=== PATIENT | male | born 1940 | race Caucasian/White ===

== ENCOUNTER 2016-12-10 19:34 | Inpatient (IN) | payer MEDICARE, OTHER ==
[~2016-12-10] VITALS: Ht 180.3 cm; Wt 81.2 kg
[2016-12-10] MEDS ORDERED: TRAM50TA PO (20:05)
[2016-12-10] MEDS ORDERED: LORA10TA68 PO (20:05)
[2016-12-10] MEDS ORDERED: SULF57CR9 TP (20:05)
[2016-12-10] MEDS ORDERED: MIRT30TA PO (20:05)
[2016-12-10] MEDS ORDERED: POLY119P4 PO (20:05)
[2016-12-10] MEDS ORDERED: ACET325T9 PO (20:05)
[2016-12-10] MEDS ORDERED: DONE10TA61 PO (20:05)
[2016-12-10] MEDS ORDERED: ALPR0.5T PO (20:05)
[2016-12-10] MEDS ORDERED: ALPR0.25 PO (20:05)
[2016-12-10] MEDS ORDERED: MENT118G TP (20:05)
[2016-12-10] MEDS ORDERED: [UNRECOGNIZED DRUG - CODE] PO (20:05)
[2016-12-10] MEDS ORDERED: QUET50TA5 PO (20:05)
[2016-12-10] MEDS ORDERED: METR60GE2 TP (20:05)
[2016-12-10] MEDS ORDERED: ONDA4TAB7 PO (20:05)
[2016-12-10] MEDS ORDERED: MAGN400O7 PO (20:05)
[2016-12-10] MEDS ORDERED: ASPI-612 PO (20:05)
[2016-12-10] MEDS ORDERED: DIVA125C PO ×2 (20:05)
[2016-12-10] MEDS ORDERED: BISA10SU55 RC (20:05)
[2016-12-10] MEDS ORDERED: SENN-6 PO (20:05)
[2016-12-10] MEDS ORDERED: BUPR150T8 PO (20:05)
[2016-12-10 20:24] VITALS: BP 119/81
--- NOTE | 2016-12-10 20:36 | PDOC ---
Exam Gerardo Demential Exam: Gerardo Note: Please also refer to the separate dictated note~for this date of service dictated separately.~Patient seen individually. Discussed the patient with Nursing staff reviewed the chart.~Reviewed interim history and current functioning. Reviewed vital signs,~Labs/ Radiology~and current medications noted below. Continue current treatment with the changes noted in the dictated addendum note Assessment: Vital Signs: Vital Signs Date Time Temp Pulse Resp B/P (MAP) Pulse Ox O2 Delivery O2 Flow Rate FiO2 12/10/16 20:24 98.1 75 16 119/81 (94) 98 Room Air Current Medications: Meds: Current Medications Alprazolam (Xanax) 0.25 mg PRN Q4HRS PRN PO ANXIETY / AGITATION; Start 12/10/16 at 20:15 Alprazolam (Xanax) 0.5 mg DAILY PO ; Start 12/11/16 at 09:00 Bupropion HCl (Wellbutrin Sr) 150 mg BID PO ; Start 12/10/16 at 21:00 Divalproex Sodium (Depakote Sprinkles) 500 mg BID PO ; Start 12/10/16 at 21:00 Donepezil HCl (Aricept) 20 mg DAILY PO ; Start 12/11/16 at 09:00 Mirtazapine (Remeron) 30 mg QHS PO ; Start 12/10/16 at 21:00 Quetiapine Fumarate (SEROquel) 50 mg TID PO ; Start 12/10/16 at 21:00 Divalproex Sodium (Depakote Sprinkles) 250 mg DAILY@1200 PO ; Start 12/11/16 at 12:00 Active Scripts Active Reported Sulfacetamide-Sulfur 10-5% Crm (Sulfacetamide Sodium/Sulfur) 57 Gm Cream..g. 1 Tiffanie TP PRN DAILY PRN Metronidazole 60 Gm Gel..gram. 1 Tiffanie TP PRN TWICE WEEKLY Dulcolax (Bisacodyl) 10 Mg Supp.rect 10 Mg RC PRN DAILY PRN Miralax (Polyethylene Glycol 3350) 119 Gm Powder 17 Gm PO PRN DAILY PRN Zofran (Ondansetron Hcl) 4 Mg Tablet 4 Mg PO PRN Q8HRS PRN Milk Of Magnesia (Magnesium Hydroxide) 400 Mg/5 Ml Oral.susp 2,400 Mg PO PRN DAILY PRN Biofreeze (Menthol) 118 Ml Gel..ml. 1 Tiffanie TP PRN TID PRN Xanax (Alprazolam) 0.25 Mg Tablet 0.25 Mg PO PRN Q4HRS PRN Claritin (Loratadine) 10 Mg Tablet 10 Mg PO PRN DAILY PRN Maglox Liquid (Mag Hydrox/Al Hydrox/Simeth) 360 Ml Oral.susp 30 Ml PO PRN TID PRN Tylenol (Acetaminophen) 325 Mg Tablet 60 Mg PO PRN Q6HRS PRN Senna S Tablet (Sennosides/Docusate Sodium) 1 Each Tablet 1 Tab PO DAILY Xanax (Alprazolam) 0.5 Mg Tablet 0.5 Mg PO DAILY Tramadol Hcl (Tramadol HCl) 50 Mg Tablet 50 Mg PO TID Seroquel (Quetiapine Fumarate) 50 Mg Tablet 50 Mg PO TID Depakote Sprinkle (Divalproex Sodium) 125 Mg Cap.sprink 250 Mg PO DAILY@1200 Remeron (Mirtazapine) 30 Mg Tablet 30 Mg PO QHS Depakote Sprinkle (Divalproex Sodium) 125 Mg Cap.sprink 500 Mg PO BID Wellbutrin Sr (Bupropion Hcl) 150 Mg Tablet.er 150 Mg PO BID Aricept (Donepezil Hcl) 10 Mg Tablet 20 Mg PO DAILY Aspirin Ec (Aspirin) 81 Mg Tablet. 81 Mg PO DAILY TATIANNA MYLES MD Dec 10, 2016 20:36
[2016-12-10] MEDS ORDERED: ACETAMINOPHEN 325 MG TABLET PO PRN (21:45)
[2016-12-10] MEDS: buPROPion SR 150 MG TABLET.SA PO SCH (22:08)
[2016-12-10] MEDS: QUEtiapine 50 MG TABLET. PO SCH (22:08)
[2016-12-10] MEDS: MIRTAZAPINE 30 MG TABLET PO SCH (22:08)
[2016-12-10] MEDS: DIVALPROEX 125 MG CAP.SPRINK PO SCH (22:08)
[2016-12-10] MEDS ORDERED: ONDANSETRON ODT 4 MG TAB.RAPDIS PO PRN (22:15)
[2016-12-10] MEDS: ENOXAPARIN 40 MG/0.4 ML DISP.SYRIN. SQ SCH (22:59)
[2016-12-10] MEDS: traMADol 50 MG TABLET PO SCH (22:59)
[2016-12-11 05:54] VITALS: BP 115/74
[2016-12-11 07:07] LABS: BASO % 1 % (0-3); EOS # 0.1 x10^3/uL (0.0-0.7); EOS % 2 % (0-3); HEMATOCRIT 37.6 % (39.0-53.0); HEMOGLOBIN 12.6 g/dL (13.0-17.5); LYMPH # 1.8 x10^3/uL (1.0-4.8); LYMPH % 34 % (24-48); MEAN CORPUSCULAR HEMOGLOBIN 31 pg (25-35); MEAN CORPUSCULAR HGB CONC 33 g/dL (31-37); MEAN CORPUSCULAR VOLUME 93 fL (79-100); MONO # 0.6 x10^3/uL (0.0-1.1); MONO % 12 % (0-9); NEUT # 2.7 x10^3uL (1.8-7.7); NEUT % 52 % (31-73); PLATELET COUNT 147 x10^3/uL (140-400); RED BLOOD COUNT 4.05 x10^6/uL (4.30-5.70); RED CELL DISTRIBUTION WIDTH 14.6 % (11.5-14.5); WHITE BLOOD COUNT 5.3 x10^3/uL (4.0-11.0)
[2016-12-11 07:25] LABS: ALBUMIN 2.9 g/dL (3.4-5.0); ALBUMIN/GLOBULIN RATIO 0.9 (1.0-1.7); CALCIUM 8.6 mg/dL (8.5-10.1); CREATININE 1.1 mg/dL (0.7-1.3); GFR 65.4; MAGNESIUM 1.7 mg/dL (1.8-2.4); POTASSIUM 3.7 mmol/L (3.5-5.1); TOTAL BILIRUBIN 0.7 mg/dL (0.2-1.0); TOTAL PROTEIN 6.1 g/dL (6.4-8.2)
[2016-12-11 07:43] LABS: VAL ACID 72 mcg/mL (50-100)
[2016-12-11] MEDS: DIVALPROEX 125 MG CAP.SPRINK PO SCH ×3 (07:45→19:58)
[2016-12-11] MEDS: buPROPion SR 150 MG TABLET.SA PO SCH (07:45)
[2016-12-11] MEDS: traMADol 50 MG TABLET PO SCH ×3 (07:45→19:59)
[2016-12-11] MEDS: QUEtiapine 50 MG TABLET. PO SCH ×3 (07:45→19:58)
[2016-12-11] MEDS: ASPIRIN ENTERIC COATED 81 MG TABLET.DR. PO SCH (08:11)
[2016-12-11] MEDS: ALPRAZolam 0.5 MG TABLET PO SCH (08:11)
[2016-12-11] MEDS: SENNOSIDES/DOCUSATE 8.6/50MG TABLET. PO SCH (08:11)
[2016-12-11] MEDS: DONEPEZIL HCL 10 MG TABLET PO SCH (08:11)
[2016-12-11] MEDS ORDERED: POLYETHYLENE GLYCOL 3350 17 GM PACKET. PO PRN (09:00)
[2016-12-11 09:03] LABS: CLARITY,URINE CLEAR; COLOR,URINE YELLOW
[2016-12-11 09:04] LABS: BACTERIA,URINE 0 /HPF (0-FEW); BILIRUBIN,URINE NEG (NEG); GLUCOSE,URINE NEG (NEG); NITRITE,URINE NEG (NEG); RBC,URINE OCC /HPF (0-2); SQUAMOUS EPITHELIAL CELL,UR OCC /LPF; UROBILINOGEN,URINE 1 mg/dL (0.2 mg/dL); WBC,URINE OCC /HPF (0-4)
[2016-12-11 10:44] LABS: THYROID STIM HORMONE (TSH) 5.598 uIU/mL (0.358-3.740)
[2016-12-11 15:11] LABS: T3 TOTAL 94 ng/dL (71-180); THYROXINE 5.7 ug/dL (4.5-12.0)
[2016-12-11] MEDS: MAGNESIUM OXIDE 400 MG TABLET PO SCH (16:00)
[2016-12-11 17:19] VITALS: BP 109/74
[2016-12-11] MEDS: ALPRAZolam 0.25 MG TABLET PO PRN (17:55)
[2016-12-11] MEDS: MIRTAZAPINE 30 MG TABLET PO SCH (19:58)
[2016-12-11] MEDS: ENOXAPARIN 40 MG/0.4 ML DISP.SYRIN. SQ SCH (19:59)
--- NOTE | 2016-12-11 21:41 | HP ---
ADMIT DATE: 12/11/2016 This note covers elements not covered in my initial note of 12/11/2016. IDENTIFYING DATA: The patient is a 76-year-old male referred to us from [facility] in [place], [place] by Dr. Mancilla, his primary care physician on account of worsening confusion over the past 2 months, increased aggression, throwing a chair at another person. He has been resistive to cares, hitting, he is compliant with his medications. This is within the context of his diagnosis of dementia with delusions, behavioral disturbance. Symptoms have been worsening for about 1 week. Behaviors have been dangerous, unmanageable, having failed outpatient psychiatric interventions. He is referred for inpatient psychiatric stabilization. PSYCHIATRIC HISTORY: The patient was hospitalized at [facility] in 2013. CHIEF COMPLAINT: "No." "I don't know." The patient responded after I introduced myself and asked him when he came here." HISTORY OF PRESENT ILLNESS: The patient has a history of dementia, Alzheimer's vascular type. He has been residing at the above facility, but behaviors have been worsening over the past 1 week or so. He has been aggressive, throwing chairs, resistive to cares, hitting staff, decline over the past 2 months, worse over 1 week. He has been delusional. He is extremely erratic in his behavior, unmanageable. No clear history of bipolar disorder, suicidal or homicidal ideation. CODE STATUS: DNR. ALLERGIES: Negative. PAST MEDICAL HISTORY: Chronic constipation and DVT in 2013. DIET: Regular. He takes his medications crushed, ambulates wheelchair with 2 person transfer. UA to be collected. CURRENT PSYCHOTROPICS: Aricept 20 mg a day, Wellbutrin-SR 150 mg twice a day, Depakote Sprinkles 500 mg b.i.d. and 250 at noon, Remeron 30 mg at bedtime, Seroquel 50 mg t.i.d., Xanax 0.5 mg daily and 0.25 mg q. 4 hours p.r.n. He has also been started on Lovenox 40 subQ at bedtime. Valproic acid level is 72. FAMILY HISTORY: Noncontributory. SOCIAL HISTORY: No history of alcohol, drug abuse, physical, sexual or elder abuse. He is not known to be a perpetrator. MENTAL STATUS EXAMINATION: The patient was seen individually evening of 12/11/2016. He is oriented to himself, admitted to feeling cold, seated in his wheelchair. Nursing staff gave him a warm blanket, he was very appreciative of this, but oblivious to his surroundings. Insight, judgment, recent and remote memory, attention, concentration, fund of knowledge poor, consistent with his diagnosis. He appears somewhat delusional, inattentive distractible, did respond to his name, able to tell me his name as well, but other than this, he is not oriented. ASSETS: Supportive living at the above facility, supportive family. WEAKNESS: The patient's dementia, delusion and aggression. IMPRESSION: Major neurocognitive disorder, Alzheimer, vascular with depression, delusion, behavioral disturbance, anxiety disorder unspecified, impulse control disorder unspecified. Rest diagnoses as above. PLAN: Admit to the Geropsychiatry unit at [facility]. I will see the patient daily individually from a psychiatric standpoint, requests medical followup with Dr. Stafford/Dr. Rios. Continue the patient on his current psychotropics, but the Wellbutrin could be worsening irritability, we will change it to Celexa 10 mg a day, add Zyprexa p.r.n. 2.5 mg q. 2 hours, max 10 mg in 24 hours. Valproic acid level therapeutic at 72. Continue Depakote at current dosage. Make further changes in his psychotropics depending on his progress and baseline assessment. TATIANNA MYLES MD DR: TONO/ugo JOB#: [id number] / [id number]
--- NOTE | 2016-12-11 23:06 | PDOC ---
Exam Gerardo Demential Exam: Gerardo Note: Please also refer to the separate dictated note~for this date of service dictated separately.~Patient seen individually. Discussed the patient with Nursing staff reviewed the chart.~Reviewed interim history and current functioning. Reviewed vital signs,~Labs/ Radiology~and current medications noted below. Continue current treatment with the changes noted in the dictated addendum note Assessment: Vital Signs: Vital Signs Date Time Temp Pulse Resp B/P (MAP) Pulse Ox O2 Delivery O2 Flow Rate FiO2 12/11/16 17:19 97.5 93 20 109/74 (86) 96 12/11/16 05:54 Room Air I&O Intake and Output 12/12/16 07:00 Intake Total 500 ml Balance 500 ml Intake Oral 500 ml Labs: Laboratory Tests Test 12/11/16 06:43 12/11/16 07:55 White Blood Count 5.3 x10^3/uL (4.0-11.0) Red Blood Count 4.05 x10^6/uL (4.30-5.70) L Hemoglobin 12.6 g/dL (13.0-17.5) L Hematocrit 37.6 % (39.0-53.0) L Mean Corpuscular Volume 93 fL (79-100) Mean Corpuscular Hemoglobin 31 pg (25-35) Mean Corpuscular Hemoglobin Concent 33 g/dL (31-37) Red Cell Distribution Width 14.6 % (11.5-14.5) H Platelet Count 147 x10^3/uL (140-400) Neutrophils (%) (Auto) 52 % (31-73) Lymphocytes (%) (Auto) 34 % (24-48) Monocytes (%) (Auto) 12 % (0-9) H Eosinophils (%) (Auto) 2 % (0-3) Basophils (%) (Auto) 1 % (0-3) Neutrophils # (Auto) 2.7 x10^3uL (1.8-7.7) Lymphocytes # (Auto) 1.8 x10^3/uL (1.0-4.8) Monocytes # (Auto) 0.6 x10^3/uL (0.0-1.1) Eosinophils # (Auto) 0.1 x10^3/uL (0.0-0.7) Basophils # (Auto) 0.0 x10^3/uL (0.0-0.2) Sodium Level 141 mmol/L (136-145) Potassium Level 3.7 mmol/L (3.5-5.1) Chloride Level 104 mmol/L (98-107) Carbon Dioxide Level 32 mmol/L (21-32) Anion Gap 5 (6-14) L Blood Urea Nitrogen 9 mg/dL (8-26) Creatinine 1.1 mg/dL (0.7-1.3) Estimated GFR (Cockcroft-Gault) 65.4 BUN/Creatinine Ratio 8 (6-20) Glucose Level 75 mg/dL (70-99) Calcium Level 8.6 mg/dL (8.5-10.1) Magnesium Level 1.7 mg/dL (1.8-2.4) L Iron Level 58 ug/dL (65-175) L Total Iron Binding Capacity 178 ug/dL (250-450) L Iron Saturation 33 % (15-34) Total Bilirubin 0.7 mg/dL (0.2-1.0) Aspartate Amino Transferase (AST) 19 U/L (15-37) Alanine Aminotransferase (ALT) 22 U/L (16-63) Alkaline Phosphatase 57 U/L (46-116) Total Protein 6.1 g/dL (6.4-8.2) L Albumin 2.9 g/dL (3.4-5.0) L Albumin/Globulin Ratio 0.9 (1.0-1.7) L Triglycerides Level 51 mg/dL (0-150) Cholesterol Level 185 mg/dL (0-200) LDL Cholesterol, Calculated 115 mg/dL (0-100) H VLDL Cholesterol, Calculated 10 mg/dL (0-40) Non-HDL Cholesterol Calculated 125 mg/dL (0-129) HDL Cholesterol 60 mg/dL (40-60) Cholesterol/HDL Ratio 3.0 25-Hydroxy Vitamin D Total Pending Thyroid Stimulating Hormone (TSH) 5.598 uIU/mL (0.358-3.740) Thyroxine (T4) 5.7 ug/dL (4.5-12.0) Total Triiodothyronine (TT3) 94 ng/dL (71-180) Valproic Acid Level 72 mcg/mL (50-100) Valproic Acid Last Dose Date 12/10/16 Valproic Acid Last Dose Time 2100 RPR Titer Additional Testing Pending Urine Collection Type Unknown Urine Color Yellow Urine Clarity Clear Urine pH 7.0 Urine Specific [place] 1.010 Urine Protein Neg (NEG-TRACE) Urine Glucose (UA) Neg mg/dL (NEG) Urine Ketones (Stick) Neg mg/dL (NEG) Urine Blood Neg (NEG) Urine Nitrite Neg (NEG) Urine Bilirubin Neg (NEG) Urine Urobilinogen Dipstick 1 mg/dL (0.2 mg/dL) Urine Leukocyte Esterase Neg (NEG) Urine RBC Occ /HPF (0-2) Urine WBC Occ /HPF (0-4) Urine Squamous Epithelial Cells Occ /LPF Urine Bacteria 0 /HPF (0-FEW) Current Medications: Meds: Current Medications Alprazolam (Xanax) 0.25 mg PRN Q4HRS PRN PO ANXIETY / AGITATION Last administered on 12/11/16 17:55; Start 12/10/16 at 20:15 Alprazolam (Xanax) 0.5 mg DAILY PO Last administered on 12/11/16 08:11; Start 12/11/16 at 09:00 Bupropion HCl (Wellbutrin Sr) 150 mg BID PO Last administered on 12/11/16 07:45 ; Start 12/10/16 at 21:00; Stop 12/11/16 at 18:54; Status DC Divalproex Sodium (Depakote Sprinkles) 500 mg BID PO Last administered on 19:58; Start 12/10/16 at 21:00 Donepezil HCl (Aricept) 20 mg DAILY PO Last administered on 12/11/16 08:11; Start 12/11/16 at 09:00 Mirtazapine (Remeron) 30 mg QHS PO Last administered on 12/11/16 19:58; Start 12/10/16 at 21:00 Quetiapine Fumarate (SEROquel) 50 mg TID PO Last administered on 12/11/16 19:58 ; Start 12/10/16 at 21:00 Divalproex Sodium (Depakote Sprinkles) 250 mg DAILY@1200 PO Last administered on 12/11/16 12:38; Start 12/11/16 at 12:00 Acetaminophen (Tylenol) 60 mg PRN Q6HRS PRN PO PAIN / TEMP; Start 12/10/16 at 21 :45 Aspirin (Aspirin Enteric Coated) 81 mg DAILY PO Last administered on 12/11/16 08:11; Start 12/11/16 at 09:00 Bisacodyl (Dulcolax Supp) 10 mg PRN DAILY PRN RC CONSTIPATION; Start 12/10/16 at 21:45 Magnesium Hydroxide (Milk Of Magnesia) 2,400 mg PRN DAILY PRN PO CONSTIPATION; Start 12/10/16 at 21:45 Polyethylene Glycol (miraLAX) 17 gm PRN DAILY PRN PO CONSTIPATION; Start at 09:00 Senna/Docusate Sodium (Senna Plus) 1 tab DAILY PO Last administered on 08:11; Start 12/11/16 at 09:00 Tramadol HCl (Ultram) 50 mg TID PO Last administered on 12/11/16 19:59; Start 12/10/16 at 22:30 Metronidazole (Nydamax) 1 tiffanie PRN Q72HRS PRN TP APPLY TWICE WEEKLY NEEDED; Start 12/10/16 at 22:15 Ondansetron HCl (Zofran Odt) 4 mg PRN Q8HRS PRN PO NAUSEA; Start 12/10/16 at 22: 15 Enoxaparin Sodium (Lovenox) 40 mg QHS SQ Last administered on 12/11/16 19:59; Start 12/10/16 at 22:30 Magnesium Oxide (Magnesium Oxide) 400 mg BID94 PO Last administered on 16:00; Start 12/11/16 at 16:00 Olanzapine (ZyPREXA ZYDIS) 2.5 mg PRN Q2HR PRN PO PSYCHOSIS Last administered on 12/11/16 20:55; Start 12/11/16 at 17:15 Citalopram Hydrobromide (CeleXA) 10 mg DAILY PO ; Start 12/12/16 at 09:00 Active Scripts Active Reported Sulfacetamide-Sulfur 10-5% Crm (Sulfacetamide Sodium/Sulfur) 57 Gm Cream..g. 1 Tiffanie TP PRN DAILY PRN Metronidazole 60 Gm Gel..gram. 1 Tiffanie TP PRN TWICE WEEKLY Dulcolax (Bisacodyl) 10 Mg Supp.rect 10 Mg RC PRN DAILY PRN Miralax (Polyethylene Glycol 3350) 119 Gm Powder 17 Gm PO PRN DAILY PRN Zofran (Ondansetron Hcl) 4 Mg Tablet 4 Mg PO PRN Q8HRS PRN Milk Of Magnesia (Magnesium Hydroxide) 400 Mg/5 Ml Oral.susp 2,400 Mg PO PRN DAILY PRN Biofreeze (Menthol) 118 Ml Gel..ml. 1 Tiffanie TP PRN TID PRN Xanax (Alprazolam) 0.25 Mg Tablet 0.25 Mg PO PRN Q4HRS PRN Claritin (Loratadine) 10 Mg Tablet 10 Mg PO PRN DAILY PRN Maglox Liquid (Mag Hydrox/Al Hydrox/Simeth) 360 Ml Oral.susp 30 Ml PO PRN TID PRN Tylenol (Acetaminophen) 325 Mg Tablet 60 Mg PO PRN Q6HRS PRN Senna S Tablet (Sennosides/Docusate Sodium) 1 Each Tablet 1 Tab PO DAILY Xanax (Alprazolam) 0.5 Mg Tablet 0.5 Mg PO DAILY Tramadol Hcl (Tramadol HCl) 50 Mg Tablet 50 Mg PO TID Seroquel (Quetiapine Fumarate) 50 Mg Tablet 50 Mg PO TID Depakote Sprinkle (Divalproex Sodium) 125 Mg Cap.sprink 250 Mg PO DAILY@1200 Remeron (Mirtazapine) 30 Mg Tablet 30 Mg PO QHS Depakote Sprinkle (Divalproex Sodium) 125 Mg Cap.sprink 500 Mg PO BID Wellbutrin Sr (Bupropion Hcl) 150 Mg Tablet.er 150 Mg PO BID Aricept (Donepezil Hcl) 10 Mg Tablet 20 Mg PO DAILY Aspirin Ec (Aspirin) 81 Mg Tablet. 81 Mg PO DAILY TATIANNA MYLES MD Dec 11, 2016 23:06
[2016-12-12 06:05] VITALS: BP 130/84
[2016-12-12] MEDS: QUEtiapine 50 MG TABLET. PO SCH ×3 (07:18→19:39)
[2016-12-12] MEDS: metroNIDAZOLE 0.75% TOPICAL 1 APP TUBE TP PRN (07:18)
[2016-12-12] MEDS: ASPIRIN ENTERIC COATED 81 MG TABLET.DR. PO SCH (07:18)
[2016-12-12] MEDS: SENNOSIDES/DOCUSATE 8.6/50MG TABLET. PO SCH (07:18)
[2016-12-12] MEDS: traMADol 50 MG TABLET PO SCH ×3 (07:18→19:38)
[2016-12-12] MEDS: DONEPEZIL HCL 10 MG TABLET PO SCH (07:18)
[2016-12-12] MEDS: MAGNESIUM OXIDE 400 MG TABLET PO SCH ×2 (07:18→18:02)
[2016-12-12] MEDS: DIVALPROEX 125 MG CAP.SPRINK PO SCH ×3 (07:19→19:39)
[2016-12-12] MEDS: ALPRAZolam 0.5 MG TABLET PO SCH (07:19)
[2016-12-12] MEDS: CITALOPRAM 10 MG TABLET. PO SCH (07:39)
[2016-12-12] MEDS ORDERED: ACETAMINOPHEN 325 MG TABLET PO PRN (12:15)
[2016-12-12 16:44] VITALS: BP 122/86
[2016-12-12] MEDS: MIRTAZAPINE 30 MG TABLET PO SCH (19:39)
[2016-12-12] MEDS: ENOXAPARIN 40 MG/0.4 ML DISP.SYRIN. SQ SCH (19:41)
[2016-12-12] MEDS: CARBIDOPA/LEVODOPA 25/100MG TABLET PO SCH (19:41)
--- NOTE | 2016-12-12 20:01 | PDOC ---
Exam Gerardo Demential Exam: Gerardo Note: Please also refer to the separate dictated note~for this date of service dictated separately.~Patient seen individually. Discussed the patient with Nursing staff reviewed the chart.~Reviewed interim history and current functioning. Reviewed vital signs,~Labs/ Radiology~and current medications noted below. Continue current treatment with the changes noted in the dictated addendum note Assessment: Vital Signs: Vital Signs Date Time Temp Pulse Resp B/P (MAP) Pulse Ox O2 Delivery O2 Flow Rate FiO2 12/12/16 16:44 96.7 71 18 122/86 (98) 98 12/11/16 05:54 Room Air I&O Intake and Output 12/13/16 07:00 Intake Total 240 ml Balance 240 ml Intake Oral 240 ml Current Medications: Meds: Current Medications Alprazolam (Xanax) 0.25 mg PRN Q4HRS PRN PO ANXIETY / AGITATION Last administered on 12/11/16 17:55; Start 12/10/16 at 20:15 Alprazolam (Xanax) 0.5 mg DAILY PO Last administered on 12/12/16 07:19; Start 12/11/16 at 09:00 Bupropion HCl (Wellbutrin Sr) 150 mg BID PO Last administered on 12/11/16 07:45 ; Start 12/10/16 at 21:00; Stop 12/11/16 at 18:54; Status DC Divalproex Sodium (Depakote Sprinkles) 500 mg BID PO Last administered on 19:39; Start 12/10/16 at 21:00 Donepezil HCl (Aricept) 20 mg DAILY PO Last administered on 12/12/16 07:18; Start 12/11/16 at 09:00; Stop 12/12/16 at 18:35; Status DC Mirtazapine (Remeron) 30 mg QHS PO Last administered on 12/12/16 19:39; Start 12/10/16 at 21:00 Quetiapine Fumarate (SEROquel) 50 mg TID PO Last administered on 12/12/16 19: 39; Start 12/10/16 at 21:00 Divalproex Sodium (Depakote Sprinkles) 250 mg DAILY@1200 PO Last administered on 12/12/16 13:44; Start 12/11/16 at 12:00 Acetaminophen (Tylenol) 60 mg PRN Q6HRS PRN PO PAIN / TEMP; Start 12/10/16 at 21 :45; Stop 12/12/16 at 12:05; Status DC Aspirin (Aspirin Enteric Coated) 81 mg DAILY PO Last administered on 12/12/16 07:18; Start 12/11/16 at 09:00 Bisacodyl (Dulcolax Supp) 10 mg PRN DAILY PRN RC CONSTIPATION; Start 12/10/16 at 21:45 Magnesium Hydroxide (Milk Of Magnesia) 2,400 mg PRN DAILY PRN PO CONSTIPATION; Start 12/10/16 at 21:45 Polyethylene Glycol (miraLAX) 17 gm PRN DAILY PRN PO CONSTIPATION; Start at 09:00 Senna/Docusate Sodium (Senna Plus) 1 tab DAILY PO Last administered on 07:18; Start 12/11/16 at 09:00 Tramadol HCl (Ultram) 50 mg TID PO Last administered on 12/12/16 19:38; Start 12/10/16 at 22:30 Metronidazole (Nydamax) 1 tiffanie PRN Q72HRS PRN TP APPLY TWICE WEEKLY NEEDED Last administered on 12/12/16 07:18; Start 12/10/16 at 22:15 Ondansetron HCl (Zofran Odt) 4 mg PRN Q8HRS PRN PO NAUSEA; Start 12/10/16 at 22: 15 Enoxaparin Sodium (Lovenox) 40 mg QHS SQ Last administered on 12/12/16 19:41; Start 12/10/16 at 22:30 Magnesium Oxide (Magnesium Oxide) 400 mg BID94 PO Last administered on 18:02; Start 12/11/16 at 16:00 Olanzapine (ZyPREXA ZYDIS) 2.5 mg PRN Q2HR PRN PO PSYCHOSIS Last administered on 12/11/16 20:55; Start 12/11/16 at 17:15 Citalopram Hydrobromide (CeleXA) 10 mg DAILY PO Last administered on 12/12/16 07:39; Start 12/12/16 at 09:00 Acetaminophen (Tylenol) 650 mg PRN Q6HRS PRN PO PAIN / TEMP; Start 12/12/16 at 12:15 Carbidopa/Levodopa (Sinemet 25/100) 1 tab TID PO Last administered on t 19:41; Start 12/12/16 at 21:00 Active Scripts Active Reported Sulfacetamide-Sulfur 10-5% Crm (Sulfacetamide Sodium/Sulfur) 57 Gm Cream..g. 1 Tiffanie TP PRN DAILY PRN Metronidazole 60 Gm Gel..gram. 1 Tiffanie TP PRN TWICE WEEKLY Dulcolax (Bisacodyl) 10 Mg Supp.rect 10 Mg RC PRN DAILY PRN Miralax (Polyethylene Glycol 3350) 119 Gm Powder 17 Gm PO PRN DAILY PRN Zofran (Ondansetron Hcl) 4 Mg Tablet 4 Mg PO PRN Q8HRS PRN Milk Of Magnesia (Magnesium Hydroxide) 400 Mg/5 Ml Oral.susp 2,400 Mg PO PRN DAILY PRN Biofreeze (Menthol) 118 Ml Gel..ml. 1 Tiffanie TP PRN TID PRN Xanax (Alprazolam) 0.25 Mg Tablet 0.25 Mg PO PRN Q4HRS PRN Claritin (Loratadine) 10 Mg Tablet 10 Mg PO PRN DAILY PRN Maglox Liquid (Mag Hydrox/Al Hydrox/Simeth) 360 Ml Oral.susp 30 Ml PO PRN TID PRN Tylenol (Acetaminophen) 325 Mg Tablet 60 Mg PO PRN Q6HRS PRN Senna S Tablet (Sennosides/Docusate Sodium) 1 Each Tablet 1 Tab PO DAILY Xanax (Alprazolam) 0.5 Mg Tablet 0.5 Mg PO DAILY Tramadol Hcl (Tramadol HCl) 50 Mg Tablet 50 Mg PO TID Seroquel (Quetiapine Fumarate) 50 Mg Tablet 50 Mg PO TID Depakote Sprinkle (Divalproex Sodium) 125 Mg Cap.sprink 250 Mg PO DAILY@1200 Remeron (Mirtazapine) 30 Mg Tablet 30 Mg PO QHS Depakote Sprinkle (Divalproex Sodium) 125 Mg Cap.sprink 500 Mg PO BID Wellbutrin Sr (Bupropion Hcl) 150 Mg Tablet.er 150 Mg PO BID Aricept (Donepezil Hcl) 10 Mg Tablet 20 Mg PO DAILY Aspirin Ec (Aspirin) 81 Mg Tablet.dr 81 Mg PO DAILY TATIANNA MYLES MD Dec 12, 2016 20:01
--- NOTE | 2016-12-12 20:24 | HP ---
ADMIT DATE: 12/10/2016 REASON FOR ADMISSION TO SENIOR BEHAVIORAL UNIT: This is a 76-year-old male who came from [place], [place]. He has been on decline for 2 months with increased aggression, throwing chairs, refusing care, hitting but has been taking his medications. PAST MEDICAL HISTORY: Dementia, depression, hypertension, history of DVT in 2013, history of hospitalization at [facility] in 2013. CURRENT MEDICATIONS: Medication changes are Remeron was increased to 30 mg, Seroquel 50 increased to t.i.d., Xanax given and Wellbutrin and Aricept. ALLERGIES: None. SOCIAL HISTORY: The patient could not tell me his previous occupation. The patient states he never smoked, could not tell me if he drank. FAMILY HISTORY: He could not give me his family history. REVIEW OF SYSTEMS: The patient was unable to answer. PHYSICAL EXAMINATION: VITAL SIGNS: Blood pressure 130/84, pulse 64, respirations 18, pulse ox 96% on room air, temperature 97.6, height 71 inches, weight 172 pounds. GENERAL: A 76-year-old somewhat unkempt male, in no acute distress. He seems slightly hard of hearing. HEENT: Pupils are equal, round, react to light. Extraocular muscles were intact. His nose is patent. His throat was clear. He struck his tongue out just slightly. NECK: Supple, without adenopathy. LUNGS: Clear to auscultation. CARDIOVASCULAR: Regular rhythm and rate without murmurs. ABDOMEN: Soft, nontender. EXTREMITIES: He has extreme flat feet. MUSCULOSKELETAL: Unable to stand, failed get up and go test. NEUROLOGIC: The patient could not cooperate for cranial nerves. Reflexes were 2+/4. PSYCHIATRIC: He is confused and not able to finish sentences or answer any questions. LABORATORY DATA: Hemoglobin 12.6, hematocrit 37.6, iron slightly low at 58, magnesium 1.7. TSH 5.598. Urinalysis is normal. Valproic acid level 72. ASSESSMENT: Dementia with behavior disturbance, hypertension, history of DVT, depression, hypomagnesemia and mild iron deficiency. PLAN: Follow along with Dr. Wang, treat his medical conditions. WILDER M. KEITH, DO DR: Ismael JOB#: [id number] / [id number]
[2016-12-13 06:08] VITALS: BP 111/76
[2016-12-13] MEDS: DIVALPROEX 125 MG CAP.SPRINK PO SCH ×3 (09:39→19:22)
[2016-12-13] MEDS: QUEtiapine 50 MG TABLET. PO SCH ×3 (09:40→19:23)
[2016-12-13] MEDS: MAGNESIUM OXIDE 400 MG TABLET PO SCH ×2 (09:40→16:41)
[2016-12-13] MEDS: ASPIRIN ENTERIC COATED 81 MG TABLET.DR. PO SCH (09:40)
[2016-12-13] MEDS: SENNOSIDES/DOCUSATE 8.6/50MG TABLET. PO SCH (09:40)
[2016-12-13] MEDS: ALPRAZolam 0.5 MG TABLET PO SCH (09:40)
[2016-12-13] MEDS: CITALOPRAM 10 MG TABLET. PO SCH (09:40)
[2016-12-13] MEDS: CARBIDOPA/LEVODOPA 25/100MG TABLET PO SCH ×3 (09:40→19:23)
[2016-12-13] MEDS: traMADol 50 MG TABLET PO SCH ×3 (09:40→19:43)
[2016-12-13] MEDS: MAGNESIUM HYDROXIDE 2,400 MG/30 ML ORAL.SUSP. PO PRN (12:46)
[2016-12-13 15:59] VITALS: BP 97/71
[2016-12-13] MEDS: ENOXAPARIN 40 MG/0.4 ML DISP.SYRIN. SQ SCH (19:23)
[2016-12-13] MEDS: MIRTAZAPINE 30 MG TABLET PO SCH (19:23)
--- NOTE | 2016-12-13 19:43 | PDOC ---
Exam Gerardo Demential Exam: Gerardo Note: Please also refer to the separate dictated note~for this date of service dictated separately.~Patient seen individually. Discussed the patient with Nursing staff reviewed the chart.~Reviewed interim history and current functioning. Reviewed vital signs,~Labs/ Radiology~and current medications noted below. Continue current treatment with the changes noted in the dictated addendum note Assessment: Vital Signs: Vital Signs Date Time Temp Pulse Resp B/P (MAP) Pulse Ox O2 Delivery O2 Flow Rate FiO2 12/13/16 15:59 97.8 75 16 97/71 (80) 95 12/11/16 05:54 Room Air I&O Intake and Output 12/14/16 07:00 Intake Total 1020 ml Balance 1020 ml Intake Oral 1020 ml Current Medications: Meds: Current Medications Alprazolam (Xanax) 0.25 mg PRN Q4HRS PRN PO ANXIETY / AGITATION Last administered on 12/11/16 17:55; Start 12/10/16 at 20:15 Alprazolam (Xanax) 0.5 mg DAILY PO Last administered on 12/13/16 09:40; Start 12/11/16 at 09:00 Bupropion HCl (Wellbutrin Sr) 150 mg BID PO Last administered on 12/11/16 07:45 ; Start 12/10/16 at 21:00; Stop 12/11/16 at 18:54; Status DC Divalproex Sodium (Depakote Sprinkles) 500 mg BID PO Last administered on 19:22; Start 12/10/16 at 21:00 Donepezil HCl (Aricept) 20 mg DAILY PO Last administered on 12/12/16 07:18; Start 12/11/16 at 09:00; Stop 12/12/16 at 18:35; Status DC Mirtazapine (Remeron) 30 mg QHS PO Last administered on 12/13/16 19:23; Start 12/10/16 at 21:00 Quetiapine Fumarate (SEROquel) 50 mg TID PO Last administered on 12/13/16 19: 23; Start 12/10/16 at 21:00 Divalproex Sodium (Depakote Sprinkles) 250 mg DAILY@1200 PO Last administered on 12/13/16 12:04; Start 12/11/16 at 12:00 Acetaminophen (Tylenol) 60 mg PRN Q6HRS PRN PO PAIN / TEMP; Start 12/10/16 at 21 :45; Stop 12/12/16 at 12:05; Status DC Aspirin (Aspirin Enteric Coated) 81 mg DAILY PO Last administered on 12/13/16 09:40; Start 12/11/16 at 09:00 Bisacodyl (Dulcolax Supp) 10 mg PRN DAILY PRN RC CONSTIPATION; Start 12/10/16 at 21:45 Magnesium Hydroxide (Milk Of Magnesia) 2,400 mg PRN DAILY PRN PO CONSTIPATION Last administered on 12/13/16 12:46; Start 12/10/16 at 21:45 Polyethylene Glycol (miraLAX) 17 gm PRN DAILY PRN PO CONSTIPATION; Start at 09:00 Senna/Docusate Sodium (Senna Plus) 1 tab DAILY PO Last administered on 09:40; Start 12/11/16 at 09:00 Tramadol HCl (Ultram) 50 mg TID PO Last administered on 12/13/16 13:57; Start 12/10/16 at 22:30 Metronidazole (Nydamax) 1 tiffanie PRN Q72HRS PRN TP APPLY TWICE WEEKLY NEEDED Last administered on 12/12/16 07:18; Start 12/10/16 at 22:15 Ondansetron HCl (Zofran Odt) 4 mg PRN Q8HRS PRN PO NAUSEA; Start 12/10/16 at 22: 15 Enoxaparin Sodium (Lovenox) 40 mg QHS SQ Last administered on 12/13/16 19:23; Start 12/10/16 at 22:30 Magnesium Oxide (Magnesium Oxide) 400 mg BID94 PO Last administered on 16:41; Start 12/11/16 at 16:00 Olanzapine (ZyPREXA ZYDIS) 2.5 mg PRN Q2HR PRN PO PSYCHOSIS Last administered on 12/13/16 18:43; Start 12/11/16 at 17:15 Citalopram Hydrobromide (CeleXA) 10 mg DAILY PO Last administered on 12/13/16 09:40; Start 12/12/16 at 09:00; Stop 12/13/16 at 18:43; Status DC Acetaminophen (Tylenol) 650 mg PRN Q6HRS PRN PO PAIN / TEMP; Start 12/12/16 at 12:15 Carbidopa/Levodopa (Sinemet 25/100) 1 tab TID PO Last administered on t 19:23; Start 12/12/16 at 21:00 Vitamin D (Vitamin D3) 50,000 unit WEEKLY PO ; Start 12/14/16 at 09:00 Buspirone HCl (Buspar) 5 mg BID@0900,1300 PO ; Start 12/14/16 at 09:00 Sertraline HCl (Zoloft) 50 mg DAILY PO ; Start 12/14/16 at 09:00 Active Scripts Active Reported Sulfacetamide-Sulfur 10-5% Crm (Sulfacetamide Sodium/Sulfur) 57 Gm Cream..g. 1 Tiffanie TP PRN DAILY PRN Metronidazole 60 Gm Gel..gram. 1 Tiffanie TP PRN TWICE WEEKLY Dulcolax (Bisacodyl) 10 Mg Supp.rect 10 Mg RC PRN DAILY PRN Miralax (Polyethylene Glycol 3350) 119 Gm Powder 17 Gm PO PRN DAILY PRN Zofran (Ondansetron Hcl) 4 Mg Tablet 4 Mg PO PRN Q8HRS PRN Milk Of Magnesia (Magnesium Hydroxide) 400 Mg/5 Ml Oral.susp 2,400 Mg PO PRN DAILY PRN Biofreeze (Menthol) 118 Ml Gel..ml. 1 Tiffanie TP PRN TID PRN Xanax (Alprazolam) 0.25 Mg Tablet 0.25 Mg PO PRN Q4HRS PRN Claritin (Loratadine) 10 Mg Tablet 10 Mg PO PRN DAILY PRN Maglox Liquid (Mag Hydrox/Al Hydrox/Simeth) 360 Ml Oral.susp 30 Ml PO PRN TID PRN Tylenol (Acetaminophen) 325 Mg Tablet 60 Mg PO PRN Q6HRS PRN Senna S Tablet (Sennosides/Docusate Sodium) 1 Each Tablet 1 Tab PO DAILY Xanax (Alprazolam) 0.5 Mg Tablet 0.5 Mg PO DAILY Tramadol Hcl (Tramadol HCl) 50 Mg Tablet 50 Mg PO TID Seroquel (Quetiapine Fumarate) 50 Mg Tablet 50 Mg PO TID Depakote Sprinkle (Divalproex Sodium) 125 Mg Cap.sprink 250 Mg PO DAILY@1200 Remeron (Mirtazapine) 30 Mg Tablet 30 Mg PO QHS Depakote Sprinkle (Divalproex Sodium) 125 Mg Cap.sprink 500 Mg PO BID Wellbutrin Sr (Bupropion Hcl) 150 Mg Tablet.er 150 Mg PO BID Aricept (Donepezil Hcl) 10 Mg Tablet 20 Mg PO DAILY Aspirin Ec (Aspirin) 81 Mg Tablet. 81 Mg PO DAILY TATIANNA MYLES MD Dec 13, 2016 19:43
--- NOTE | 2016-12-14 01:26 | PN ---
DATE: 12/12/2016 This late entry 12/12/2016 covers elements not covered in initial note of 12/12/2016. SUBJECTIVE: I met with the patient evening of 12/12/2016. According to nursing staff, the patient had a "rough night." He was quite agitated, having tremors, disruptive, difficult to manage, received Zyprexa previous evening, which seemed to help. We will have Dr. Arizmendi for Neurology consult given his ongoing tremors to rule out Parkinson's, and I discussed this with Dr. Arizmendi later in the evening on 12/12/2016. REVIEW OF SYSTEMS: Ambulation impaired, in a wheelchair. No CV, , pulmonary, eye, ENT system symptoms on review. Reliability poor. MENTAL STATUS EXAM: Oriented to himself. Insight, judgment, recent and remote memory, attention, concentration, fund of knowledge poor, consistent with his diagnosis mentioned in my initial note. LABORATORY DATA: Reviewed. Valproic acid level is 72. IMPRESSION: Major neurocognitive disorder, Alzheimer, vascular with depression, delusion, behavioral disturbance; anxiety disorder, unspecified; impulse control disorder, unspecified. Rest unchanged. PLAN: Aricept is of little benefit at this stage. We will stop Aricept 20 mg a day. Continue Celexa 10 mg a day, Depakote 500 b.i.d., 250 at noon, level therapeutic at 72, Remeron 30 mg at bedtime, Seroquel 50 t.i.d., Xanax 0.5 mg daily plus p.r.n., Zyprexa p.r.n. Starting 12/13/2016, we will go ahead and start BuSpar 5 mg at 9:00 a.m. and 1:00 p.m. Adjust further as clinically indicated. Review of drug interactions, risk/benefit ratio favors no further change at this time. TATIANNA MYLES MD DR: TONO/ugo JOB#: [id number] / [id number]
[2016-12-14 08:00] VITALS: BP 108/79
[2016-12-14] MEDS: traMADol 50 MG TABLET PO SCH ×3 (09:00→19:11)
[2016-12-14] MEDS: SENNOSIDES/DOCUSATE 8.6/50MG TABLET. PO SCH (09:00)
[2016-12-14] MEDS: busPIRone 5 MG TABLET. PO SCH ×2 (09:00→14:10)
[2016-12-14] MEDS: CHOLECALCIFEROL (VITAMIN D3) 50,000 UNIT CAPSULE PO SCH (09:00)
[2016-12-14] MEDS: SERTRALINE 25 MG TABLET. PO SCH (09:00)
[2016-12-14] MEDS: CARBIDOPA/LEVODOPA 25/100MG TABLET PO SCH ×3 (09:00→19:11)
[2016-12-14] MEDS: ALPRAZolam 0.5 MG TABLET PO SCH (09:00)
[2016-12-14] MEDS: DIVALPROEX 125 MG CAP.SPRINK PO SCH ×3 (09:00→19:11)
[2016-12-14] MEDS: MAGNESIUM OXIDE 400 MG TABLET PO SCH ×2 (09:00→16:45)
[2016-12-14] MEDS: QUEtiapine 50 MG TABLET. PO SCH ×3 (09:00→19:12)
[2016-12-14] MEDS: ASPIRIN ENTERIC COATED 81 MG TABLET.DR. PO SCH (09:00)
[2016-12-14 16:00] VITALS: BP 104/67
[2016-12-14] MEDS ORDERED: MAGNESIUM CITRATE 296 ML SOLUTION. PO PRN (17:30)
[2016-12-14] MEDS: MIRTAZAPINE 30 MG TABLET PO SCH (19:11)
[2016-12-14] MEDS: ENOXAPARIN 40 MG/0.4 ML DISP.SYRIN. SQ SCH (19:12)
[2016-12-14] MEDS: MAGNESIUM HYDROXIDE 2,400 MG/30 ML ORAL.SUSP. PO PRN (19:15)
[2016-12-14] MEDS: BISACODYL 10 MG SUPP.RECT RC PRN (19:15)
--- NOTE | 2016-12-14 19:40 | PDOC ---
Exam Gerardo Demential Exam: Gerardo Note: Please also refer to the separate dictated note~for this date of service dictated separately.~Patient seen individually. Discussed the patient with Nursing staff reviewed the chart.~Reviewed interim history and current functioning. Reviewed vital signs,~Labs/ Radiology~and current medications noted below. Continue current treatment with the changes noted in the dictated addendum note Assessment: Vital Signs: Vital Signs Date Time Temp Pulse Resp B/P (MAP) Pulse Ox O2 Delivery O2 Flow Rate FiO2 12/14/16 16:00 97.1 64 16 104/67 (79) 95 12/13/16 21:00 Room Air I&O Intake and Output 12/15/16 06:59 Intake Total 680 ml Balance 680 ml Intake Oral 680 ml Current Medications: Meds: Current Medications Alprazolam (Xanax) 0.25 mg PRN Q4HRS PRN PO ANXIETY / AGITATION Last administered on 12/11/16 17:55; Start 12/10/16 at 20:15 Alprazolam (Xanax) 0.5 mg DAILY PO Last administered on 12/14/16 09:00; Start 12/11/16 at 09:00 Bupropion HCl (Wellbutrin Sr) 150 mg BID PO Last administered on 12/11/16 07:45 ; Start 12/10/16 at 21:00; Stop 12/11/16 at 18:54; Status DC Divalproex Sodium (Depakote Sprinkles) 500 mg BID PO Last administered on 19:11; Start 12/10/16 at 21:00 Donepezil HCl (Aricept) 20 mg DAILY PO Last administered on 12/12/16 07:18; Start 12/11/16 at 09:00; Stop 12/12/16 at 18:35; Status DC Mirtazapine (Remeron) 30 mg QHS PO Last administered on 12/14/16 19:11; Start 12/10/16 at 21:00 Quetiapine Fumarate (SEROquel) 50 mg TID PO Last administered on 12/14/16 19: 12; Start 12/10/16 at 21:00 Divalproex Sodium (Depakote Sprinkles) 250 mg DAILY@1200 PO Last administered on 12/14/16 12:24; Start 12/11/16 at 12:00 Acetaminophen (Tylenol) 60 mg PRN Q6HRS PRN PO PAIN / TEMP; Start 12/10/16 at 21 :45; Stop 12/12/16 at 12:05; Status DC Aspirin (Aspirin Enteric Coated) 81 mg DAILY PO Last administered on 12/14/16 09:00; Start 12/11/16 at 09:00 Bisacodyl (Dulcolax Supp) 10 mg PRN DAILY PRN RC CONSTIPATION Last administered on 12/14/16 19:15; Start 12/10/16 at 21:45 Magnesium Hydroxide (Milk Of Magnesia) 2,400 mg PRN DAILY PRN PO CONSTIPATION Last administered on 12/14/16 19:15; Start 12/10/16 at 21:45 Polyethylene Glycol (miraLAX) 17 gm PRN DAILY PRN PO CONSTIPATION; Start at 09:00 Senna/Docusate Sodium (Senna Plus) 1 tab DAILY PO Last administered on 09:00; Start 12/11/16 at 09:00 Tramadol HCl (Ultram) 50 mg TID PO Last administered on 12/14/16 19:11; Start 12/10/16 at 22:30 Metronidazole (Nydamax) 1 tiffanie PRN Q72HRS PRN TP APPLY TWICE WEEKLY NEEDED Last administered on 12/12/16 07:18; Start 12/10/16 at 22:15 Ondansetron HCl (Zofran Odt) 4 mg PRN Q8HRS PRN PO NAUSEA; Start 12/10/16 at 22: 15 Enoxaparin Sodium (Lovenox) 40 mg QHS SQ Last administered on 12/14/16 19:12; Start 12/10/16 at 22:30 Magnesium Oxide (Magnesium Oxide) 400 mg BID94 PO Last administered on 16:45; Start 12/11/16 at 16:00 Olanzapine (ZyPREXA ZYDIS) 2.5 mg PRN Q2HR PRN PO PSYCHOSIS Last administered on 12/14/16 19:06; Start 12/11/16 at 17:15 Citalopram Hydrobromide (CeleXA) 10 mg DAILY PO Last administered on 9/11/17at 09:40; Start 12/12/16 at 09:00; Stop 12/13/16 at 18:43; Status DC Acetaminophen (Tylenol) 650 mg PRN Q6HRS PRN PO PAIN / TEMP Last administered on 12/14/16 19:39; Start 12/12/16 at 12:15 Carbidopa/Levodopa (Sinemet 25/100) 1 tab TID PO Last administered on 19:11; Start 12/12/16 at 21:00 Vitamin D (Vitamin D3) 50,000 unit WEEKLY PO Last administered on 12/14/16 09: 00; Start 12/14/16 at 09:00 Buspirone HCl (Buspar) 5 mg BID@0900,1300 PO Last administered on 12/14/16 14: 10; Start 12/14/16 at 09:00 Sertraline HCl (Zoloft) 50 mg DAILY PO Last administered on 12/14/16 09:00; Start 12/14/16 at 09:00 Magnesium Citrate (Citroma) 296 ml PRN 1X PRN PO CONSTIPATION; Start 12/14/16 at 17:30 Active Scripts Active Reported Sulfacetamide-Sulfur 10-5% Crm (Sulfacetamide Sodium/Sulfur) 57 Gm Cream..g. 1 Tiffanie TP PRN DAILY PRN Metronidazole 60 Gm Gel..gram. 1 Tiffanie TP PRN TWICE WEEKLY Dulcolax (Bisacodyl) 10 Mg Supp.rect 10 Mg RC PRN DAILY PRN Miralax (Polyethylene Glycol 3350) 119 Gm Powder 17 Gm PO PRN DAILY PRN Zofran (Ondansetron Hcl) 4 Mg Tablet 4 Mg PO PRN Q8HRS PRN Milk Of Magnesia (Magnesium Hydroxide) 400 Mg/5 Ml Oral.susp 2,400 Mg PO PRN DAILY PRN Biofreeze (Menthol) 118 Ml Gel..ml. 1 Tiffanie TP PRN TID PRN Xanax (Alprazolam) 0.25 Mg Tablet 0.25 Mg PO PRN Q4HRS PRN Claritin (Loratadine) 10 Mg Tablet 10 Mg PO PRN DAILY PRN Maglox Liquid (Mag Hydrox/Al Hydrox/Simeth) 360 Ml Oral.susp 30 Ml PO PRN TID PRN Tylenol (Acetaminophen) 325 Mg Tablet 60 Mg PO PRN Q6HRS PRN Senna S Tablet (Sennosides/Docusate Sodium) 1 Each Tablet 1 Tab PO DAILY Xanax (Alprazolam) 0.5 Mg Tablet 0.5 Mg PO DAILY Tramadol Hcl (Tramadol HCl) 50 Mg Tablet 50 Mg PO TID Seroquel (Quetiapine Fumarate) 50 Mg Tablet 50 Mg PO TID Depakote Sprinkle (Divalproex Sodium) 125 Mg Cap.sprink 250 Mg PO DAILY@1200 Remeron (Mirtazapine) 30 Mg Tablet 30 Mg PO QHS Depakote Sprinkle (Divalproex Sodium) 125 Mg Cap.sprink 500 Mg PO BID Wellbutrin Sr (Bupropion Hcl) 150 Mg Tablet.er 150 Mg PO BID Aricept (Donepezil Hcl) 10 Mg Tablet 20 Mg PO DAILY Aspirin Ec (Aspirin) 81 Mg Tablet. 81 Mg PO DAILY TATIANNA MYLES MD Dec 14, 2016 19:40
--- NOTE | 2016-12-15 01:53 | PN ---
DATE: 12/13/2016 This is a late entry 12/13/2016 cover the elements not covered in my initial note of 12/13/2016. SUBJECTIVE: I met with the patient in the evening of 12/13/2016. The patient slept 7 hours previous evening, remains confused, combative when medications were being administered earlier in the day on 12/13/2016. REVIEW OF SYSTEMS: Ambulation impaired. No CV, , pulmonary, eye, ENT system symptoms on review. Reliability poor. MENTAL STATUS EXAM: Oriented to himself. Insight, judgment, recent, and remote memory, attention, concentration, fund of knowledge poor, consistent with his diagnosis mentioned in my initial note. PLAN: Change the Celexa to Zoloft 50 mg a day, should be better with his anxiety, agitation obsessiveness, maintain Depakote, Remeron, Seroquel together with Xanax, BuSpar, and the Zyprexa p.r.n. Valproic acid level is 72 therapeutic, we will make further changes as clinically indicated. MAN Juanita MYLES MD DR: TONO/ugo JOB#: [id number] / [id number]
[2016-12-15 06:04] VITALS: BP 148/72
[2016-12-15] MEDS: SERTRALINE 25 MG TABLET. PO SCH (08:19)
[2016-12-15] MEDS: MAGNESIUM OXIDE 400 MG TABLET PO SCH ×2 (08:20→18:13)
[2016-12-15] MEDS: DIVALPROEX 125 MG CAP.SPRINK PO SCH ×3 (08:20→19:13)
[2016-12-15] MEDS: ASPIRIN ENTERIC COATED 81 MG TABLET.DR. PO SCH (08:20)
[2016-12-15] MEDS: SENNOSIDES/DOCUSATE 8.6/50MG TABLET. PO SCH (08:20)
[2016-12-15] MEDS: QUEtiapine 50 MG TABLET. PO SCH ×3 (08:20→19:14)
[2016-12-15] MEDS: CARBIDOPA/LEVODOPA 25/100MG TABLET PO SCH ×3 (08:21→19:15)
[2016-12-15] MEDS: busPIRone 5 MG TABLET. PO SCH ×2 (08:21→12:26)
[2016-12-15] MEDS: traMADol 50 MG TABLET PO SCH ×3 (08:21→19:14)
[2016-12-15] MEDS: ALPRAZolam 0.5 MG TABLET PO SCH (08:22)
[2016-12-15 16:12] VITALS: BP 106/72
[2016-12-15] MEDS: ENOXAPARIN 40 MG/0.4 ML DISP.SYRIN. SQ SCH (19:15)
[2016-12-15] MEDS: MIRTAZAPINE 30 MG TABLET PO SCH (19:15)
--- NOTE | 2016-12-15 19:49 | PDOC ---
Exam Gerardo Demential Exam: Gerardo Note: Please also refer to the separate dictated note~for this date of service dictated separately.~Patient seen individually. Discussed the patient with Nursing staff reviewed the chart.~Reviewed interim history and current functioning. Reviewed vital signs,~Labs/ Radiology~and current medications noted below. Continue current treatment with the changes noted in the dictated addendum note Assessment: Vital Signs: Vital Signs Date Time Temp Pulse Resp B/P (MAP) Pulse Ox O2 Delivery O2 Flow Rate FiO2 12/15/16 16:12 98.0 70 16 106/72 (83) 96 12/15/16 08:21 Room Air I&O Intake and Output 12/16/16 07:00 Intake Total 960 ml Balance 960 ml Intake Oral 960 ml # Bowel Movements 1 Current Medications: Meds: Current Medications Alprazolam (Xanax) 0.25 mg PRN Q4HRS PRN PO ANXIETY / AGITATION Last administered on 12/11/16 17:55; Start 12/10/16 at 20:15 Alprazolam (Xanax) 0.5 mg DAILY PO Last administered on 12/15/16 08:22; Start 12/11/16 at 09:00 Bupropion HCl (Wellbutrin Sr) 150 mg BID PO Last administered on 12/11/16 07:45 ; Start 12/10/16 at 21:00; Stop 12/11/16 at 18:54; Status DC Divalproex Sodium (Depakote Sprinkles) 500 mg BID PO Last administered on 19:13; Start 12/10/16 at 21:00 Donepezil HCl (Aricept) 20 mg DAILY PO Last administered on 12/12/16 07:18; Start 12/11/16 at 09:00; Stop 12/12/16 at 18:35; Status DC Mirtazapine (Remeron) 30 mg QHS PO Last administered on 12/15/16 19:15; Start 12/10/16 at 21:00 Quetiapine Fumarate (SEROquel) 50 mg TID PO Last administered on 12/15/16 19: 14; Start 12/10/16 at 21:00 Divalproex Sodium (Depakote Sprinkles) 250 mg DAILY@1200 PO Last administered on 12/15/16 12:26; Start 12/11/16 at 12:00 Acetaminophen (Tylenol) 60 mg PRN Q6HRS PRN PO PAIN / TEMP; Start 12/10/16 at 21 :45; Stop 12/12/16 at 12:05; Status DC Aspirin (Aspirin Enteric Coated) 81 mg DAILY PO Last administered on 12/15/16 08:20; Start 12/11/16 at 09:00 Bisacodyl (Dulcolax Supp) 10 mg PRN DAILY PRN RC CONSTIPATION Last administered on 12/14/16 19:15; Start 12/10/16 at 21:45 Magnesium Hydroxide (Milk Of Magnesia) 2,400 mg PRN DAILY PRN PO CONSTIPATION Last administered on 12/14/16 19:15; Start 12/10/16 at 21:45 Polyethylene Glycol (miraLAX) 17 gm PRN DAILY PRN PO CONSTIPATION; Start at 09:00 Senna/Docusate Sodium (Senna Plus) 1 tab DAILY PO Last administered on 08:20; Start 12/11/16 at 09:00 Tramadol HCl (Ultram) 50 mg TID PO Last administered on 12/15/16 19:14; Start 12/10/16 at 22:30 Metronidazole (Nydamax) 1 tiffanie PRN Q72HRS PRN TP APPLY TWICE WEEKLY NEEDED Last administered on 12/12/16 07:18; Start 12/10/16 at 22:15 Ondansetron HCl (Zofran Odt) 4 mg PRN Q8HRS PRN PO NAUSEA; Start 12/10/16 at 22: 15 Enoxaparin Sodium (Lovenox) 40 mg QHS SQ Last administered on 12/15/16 19:15; Start 12/10/16 at 22:30 Magnesium Oxide (Magnesium Oxide) 400 mg BID94 PO Last administered on 18:13; Start 12/11/16 at 16:00 Olanzapine (ZyPREXA ZYDIS) 2.5 mg PRN Q2HR PRN PO PSYCHOSIS Last administered on 12/15/16 16:33; Start 12/11/16 at 17:15 Citalopram Hydrobromide (CeleXA) 10 mg DAILY PO Last administered on 12/13/16 09:40; Start 12/12/16 at 09:00; Stop 12/13/16 at 18:43; Status DC Acetaminophen (Tylenol) 650 mg PRN Q6HRS PRN PO PAIN / TEMP Last administered on 12/14/16 19:39; Start 12/12/16 at 12:15 Carbidopa/Levodopa (Sinemet 25/100) 1 tab TID PO Last administered on 19:15; Start 12/12/16 at 21:00 Vitamin D (Vitamin D3) 50,000 unit WEEKLY PO Last administered on 12/14/16 09: 00; Start 12/14/16 at 09:00 Buspirone HCl (Buspar) 5 mg BID@0900,1300 PO Last administered on 12/15/16 12: 26; Start 12/14/16 at 09:00 Sertraline HCl (Zoloft) 50 mg DAILY PO Last administered on 12/15/16 08:19; Start 12/14/16 at 09:00 Magnesium Citrate (Citroma) 296 ml PRN 1X PRN PO CONSTIPATION; Start 12/14/16 at 17:30 Active Scripts Active Reported Sulfacetamide-Sulfur 10-5% Crm (Sulfacetamide Sodium/Sulfur) 57 Gm Cream..g. 1 Tiffanie TP PRN DAILY PRN Metronidazole 60 Gm Gel..gram. 1 Tiffanie TP PRN TWICE WEEKLY Dulcolax (Bisacodyl) 10 Mg Supp.rect 10 Mg RC PRN DAILY PRN Miralax (Polyethylene Glycol 3350) 119 Gm Powder 17 Gm PO PRN DAILY PRN Zofran (Ondansetron Hcl) 4 Mg Tablet 4 Mg PO PRN Q8HRS PRN Milk Of Magnesia (Magnesium Hydroxide) 400 Mg/5 Ml Oral.susp 2,400 Mg PO PRN DAILY PRN Biofreeze (Menthol) 118 Ml Gel..ml. 1 Tiffanie TP PRN TID PRN Xanax (Alprazolam) 0.25 Mg Tablet 0.25 Mg PO PRN Q4HRS PRN Claritin (Loratadine) 10 Mg Tablet 10 Mg PO PRN DAILY PRN Maglox Liquid (Mag Hydrox/Al Hydrox/Simeth) 360 Ml Oral.susp 30 Ml PO PRN TID PRN Tylenol (Acetaminophen) 325 Mg Tablet 60 Mg PO PRN Q6HRS PRN Senna S Tablet (Sennosides/Docusate Sodium) 1 Each Tablet 1 Tab PO DAILY Xanax (Alprazolam) 0.5 Mg Tablet 0.5 Mg PO DAILY Tramadol Hcl (Tramadol HCl) 50 Mg Tablet 50 Mg PO TID Seroquel (Quetiapine Fumarate) 50 Mg Tablet 50 Mg PO TID Depakote Sprinkle (Divalproex Sodium) 125 Mg Cap.sprink 250 Mg PO DAILY@1200 Remeron (Mirtazapine) 30 Mg Tablet 30 Mg PO QHS Depakote Sprinkle (Divalproex Sodium) 125 Mg Cap.sprink 500 Mg PO BID Wellbutrin Sr (Bupropion Hcl) 150 Mg Tablet.er 150 Mg PO BID Aricept (Donepezil Hcl) 10 Mg Tablet 20 Mg PO DAILY Aspirin Ec (Aspirin) 81 Mg Tablet.dr 81 Mg PO DAILY Diagnosis: Problems: (1) Anxiety disorder (2) Dementia in Alzheimer's disease with delusions (3) Dementia in Alzheimer's disease with depression (4) Dementia, vascular, with delusions (5) Dementia, vascular, with depression (6) Impulse control disorder TATIANNA MYLES MD Dec 15, 2016 19:49
--- NOTE | 2016-12-16 03:13 | PN ---
DATE: 12/14/2016 This late entry for 12/14/2016 covers elements not covered in my initial note of 12/14/2016. SUBJECTIVE: I met with the patient in the evening of 12/14/2016. The patient remains confused, somewhat withdrawn, not aggressive, restless, trying to get up, has a fall risk, did sleep well the previous evening. REVIEW OF SYSTEMS: No CV, , pulmonary, eye, ENT system symptoms on review. He is in a Broda chair. MENTAL STATUS EXAM: Oriented to himself. Insight, judgment, recent and remote memory, attention, concentration, fund of knowledge poor, consistent with his diagnosis mentioned in my initial note. LABORATORY DATA: Reviewed. PLAN: Continue current psychotropics mentioned in my initial note. Reviewed drug interactions. Risk/benefit ratio favors no further change. MAN Juanita MYLES MD DR: TONO/ugo JOB#: [id number] / [id number]
[2016-12-16 05:50] VITALS: BP 133/83
[2016-12-16] MEDS: CARBIDOPA/LEVODOPA 25/100MG TABLET PO SCH ×3 (07:47→19:39)
[2016-12-16] MEDS: SERTRALINE 25 MG TABLET. PO SCH (07:47)
[2016-12-16] MEDS: DIVALPROEX 125 MG CAP.SPRINK PO SCH ×3 (07:47→19:39)
[2016-12-16] MEDS: busPIRone 5 MG TABLET. PO SCH ×3 (07:47→16:31)
[2016-12-16] MEDS: MAGNESIUM OXIDE 400 MG TABLET PO SCH ×2 (07:47→16:31)
[2016-12-16] MEDS: QUEtiapine 50 MG TABLET. PO SCH ×3 (07:47→16:31)
[2016-12-16] MEDS: ASPIRIN ENTERIC COATED 81 MG TABLET.DR. PO SCH (07:47)
[2016-12-16] MEDS: SENNOSIDES/DOCUSATE 8.6/50MG TABLET. PO SCH (07:47)
[2016-12-16] MEDS: traMADol 50 MG TABLET PO SCH ×3 (07:48→19:40)
[2016-12-16] MEDS: ALPRAZolam 0.5 MG TABLET PO SCH (07:49)
[2016-12-16 16:21] VITALS: BP 106/69
[2016-12-16] MEDS: ENOXAPARIN 40 MG/0.4 ML DISP.SYRIN. SQ SCH (19:39)
[2016-12-16] MEDS: MIRTAZAPINE 30 MG TABLET PO SCH (19:39)
--- NOTE | 2016-12-16 20:04 | PDOC ---
Exam Gerardo Demential Exam: Gerardo Note: Please also refer to the separate dictated note~for this date of service dictated separately.~Patient seen individually. Discussed the patient with Nursing staff reviewed the chart.~Reviewed interim history and current functioning. Reviewed vital signs,~Labs/ Radiology~and current medications noted below. Continue current treatment with the changes noted in the dictated addendum note Assessment: Vital Signs: Vital Signs Date Time Temp Pulse Resp B/P (MAP) Pulse Ox O2 Delivery O2 Flow Rate FiO2 12/16/16 19:40 20 12/16/16 16:21 97.9 69 106/69 (81) 94 12/15/16 08:21 Room Air I&O Intake and Output 12/17/16 06:59 Intake Total 1140 ml Balance 1140 ml Intake Oral 1140 ml Current Medications: Meds: Current Medications Alprazolam (Xanax) 0.25 mg PRN Q4HRS PRN PO ANXIETY / AGITATION Last administered on 12/11/16 17:55; Start 12/10/16 at 20:15 Alprazolam (Xanax) 0.5 mg DAILY PO Last administered on 12/16/16 07:49; Start 12/11/16 at 09:00 Bupropion HCl (Wellbutrin Sr) 150 mg BID PO Last administered on 12/11/16 07:45 ; Start 12/10/16 at 21:00; Stop 12/11/16 at 18:54; Status DC Divalproex Sodium (Depakote Sprinkles) 500 mg BID PO Last administered on 19:39; Start 12/10/16 at 21:00 Donepezil HCl (Aricept) 20 mg DAILY PO Last administered on 12/12/16 07:18; Start 12/11/16 at 09:00; Stop 12/12/16 at 18:35; Status DC Mirtazapine (Remeron) 30 mg QHS PO Last administered on 12/16/16 19:39; Start 12/10/16 at 21:00 Quetiapine Fumarate (SEROquel) 50 mg TID PO Last administered on 12/16/16 07: 47; Start 12/10/16 at 21:00; Stop 12/16/16 at 11:04; Status DC Divalproex Sodium (Depakote Sprinkles) 250 mg DAILY@1200 PO Last administered on 12/16/16 12:11; Start 12/11/16 at 12:00 Acetaminophen (Tylenol) 60 mg PRN Q6HRS PRN PO PAIN / TEMP; Start 12/10/16 at 21 :45; Stop 12/12/16 at 12:05; Status DC Aspirin (Aspirin Enteric Coated) 81 mg DAILY PO Last administered on 12/16/16 07:47; Start 12/11/16 at 09:00 Bisacodyl (Dulcolax Supp) 10 mg PRN DAILY PRN RC CONSTIPATION Last administered on 12/14/16 19:15; Start 12/10/16 at 21:45 Magnesium Hydroxide (Milk Of Magnesia) 2,400 mg PRN DAILY PRN PO CONSTIPATION Last administered on 12/14/16 19:15; Start 12/10/16 at 21:45 Polyethylene Glycol (miraLAX) 17 gm PRN DAILY PRN PO CONSTIPATION; Start at 09:00 Senna/Docusate Sodium (Senna Plus) 1 tab DAILY PO Last administered on 07:47; Start 12/11/16 at 09:00 Tramadol HCl (Ultram) 50 mg TID PO Last administered on 12/16/16 19:40; Start 12/10/16 at 22:30 Metronidazole (Nydamax) 1 tiffanie PRN Q72HRS PRN TP APPLY TWICE WEEKLY NEEDED Last administered on 12/12/16 07:18; Start 12/10/16 at 22:15 Ondansetron HCl (Zofran Odt) 4 mg PRN Q8HRS PRN PO NAUSEA; Start 12/10/16 at 22: 15 Enoxaparin Sodium (Lovenox) 40 mg QHS SQ Last administered on 12/16/16 19:39; Start 12/10/16 at 22:30 Magnesium Oxide (Magnesium Oxide) 400 mg BID94 PO Last administered on 16:31; Start 12/11/16 at 16:00 Olanzapine (ZyPREXA ZYDIS) 2.5 mg PRN Q2HR PRN PO PSYCHOSIS Last administered on 12/15/16 16:33; Start 12/11/16 at 17:15 Citalopram Hydrobromide (CeleXA) 10 mg DAILY PO Last administered on 12/13/16 09:40; Start 12/12/16 at 09:00; Stop 12/13/16 at 18:43; Status DC Acetaminophen (Tylenol) 650 mg PRN Q6HRS PRN PO PAIN / TEMP Last administered on 12/14/16 19:39; Start 12/12/16 at 12:15 Carbidopa/Levodopa (Sinemet 25/100) 1 tab TID PO Last administered on 19:39; Start 12/12/16 at 21:00 Vitamin D (Vitamin D3) 50,000 unit WEEKLY PO Last administered on 12/14/16 09: 00; Start 12/14/16 at 09:00 Buspirone HCl (Buspar) 5 mg BID@0900,1300 PO Last administered on 12/16/16 07: 47; Start 12/14/16 at 09:00; Stop 12/16/16 at 12:00; Status DC Sertraline HCl (Zoloft) 50 mg DAILY PO Last administered on 12/16/16 07:47; Start 12/14/16 at 09:00; Stop 12/16/16 at 11:44; Status DC Magnesium Citrate (Citroma) 296 ml PRN 1X PRN PO CONSTIPATION; Start 12/14/16 at 17:30 Buspirone HCl (Buspar) 5 mg BID@0800,1200,1500 PO Last administered on 16:31; Start 12/16/16 at 12:00 Quetiapine Fumarate (SEROquel) 50 mg TID@0800,1200,1500 PO Last administered on 12/16/16 16:31; Start 12/16/16 at 12:00 Sertraline HCl (Zoloft) 50 mg DAILY PO ; Start 12/17/16 at 09:00 Active Scripts Active Reported Sulfacetamide-Sulfur 10-5% Crm (Sulfacetamide Sodium/Sulfur) 57 Gm Cream..g. 1 Tiffanie TP PRN DAILY PRN Metronidazole 60 Gm Gel..gram. 1 Tiffanie TP PRN TWICE WEEKLY Dulcolax (Bisacodyl) 10 Mg Supp.rect 10 Mg RC PRN DAILY PRN Miralax (Polyethylene Glycol 3350) 119 Gm Powder 17 Gm PO PRN DAILY PRN Zofran (Ondansetron Hcl) 4 Mg Tablet 4 Mg PO PRN Q8HRS PRN Milk Of Magnesia (Magnesium Hydroxide) 400 Mg/5 Ml Oral.susp 2,400 Mg PO PRN DAILY PRN Biofreeze (Menthol) 118 Ml Gel..ml. 1 Tiffanie TP PRN TID PRN Xanax (Alprazolam) 0.25 Mg Tablet 0.25 Mg PO PRN Q4HRS PRN Claritin (Loratadine) 10 Mg Tablet 10 Mg PO PRN DAILY PRN Maglox Liquid (Mag Hydrox/Al Hydrox/Simeth) 360 Ml Oral.susp 30 Ml PO PRN TID PRN Tylenol (Acetaminophen) 325 Mg Tablet 60 Mg PO PRN Q6HRS PRN Senna S Tablet (Sennosides/Docusate Sodium) 1 Each Tablet 1 Tab PO DAILY Xanax (Alprazolam) 0.5 Mg Tablet 0.5 Mg PO DAILY Tramadol Hcl (Tramadol HCl) 50 Mg Tablet 50 Mg PO TID Seroquel (Quetiapine Fumarate) 50 Mg Tablet 50 Mg PO TID Depakote Sprinkle (Divalproex Sodium) 125 Mg Cap.sprink 250 Mg PO DAILY@1200 Remeron (Mirtazapine) 30 Mg Tablet 30 Mg PO QHS Depakote Sprinkle (Divalproex Sodium) 125 Mg Cap.sprink 500 Mg PO BID Wellbutrin Sr (Bupropion Hcl) 150 Mg Tablet.er 150 Mg PO BID Aricept (Donepezil Hcl) 10 Mg Tablet 20 Mg PO DAILY Aspirin Ec (Aspirin) 81 Mg Tablet.dr 81 Mg PO DAILY Diagnosis: Problems: (1) Anxiety disorder (2) Dementia in Alzheimer's disease with delusions (3) Dementia in Alzheimer's disease with depression (4) Dementia, vascular, with delusions (5) Dementia, vascular, with depression (6) Impulse control disorder TATIANNA MYLES MD Dec 16, 2016 20:04
[2016-12-17 05:43] VITALS: BP 98/60
--- NOTE | 2016-12-17 06:01 | PN ---
DATE: 12/15/2016 PSYCHIATRIC PROGRESS NOTE This late entry 12/15/2016 covers elements not covered in the initial note of 12/15/2016. I met with the patient evening of 12/15/2016. The patient slept 5-3/4 hours previous evening. He was having some tremors earlier in the day. Staff had to feed him. He walked 150 feet with physical therapy, became agitated around 04:30, which is typical for him and received Zyprexa, which seemed to help. At suppertime, he was extremely agitated, labile, explosive, threw the dinner tray on the floor. REVIEW OF SYSTEMS: Ambulation impaired, in a wheelchair. No CV, , pulmonary, eye, ENT system symptoms on review. Reliability poor. MENTAL STATUS EXAM: Oriented to himself. Insight, judgment, recent and remote memory, attention, concentration, fund of knowledge poor, consistent with his diagnosis as mentioned in my initial note. PLAN: Increase Zoloft to 75 mg a day starting 12/16/2016. Maintain the rest of the psychotropics as noted in my initial note. Valproic acid level is 72, may need to adjust further and may need to administer psychotropics around 3:00 p.m. to help with his 4:30 p.m. agitation, which appears fairly consistent even starting at the care home. MAN Juanita MYLES MD DR: TONO/ugo JOB#: [id number] / [id number]
--- NOTE | 2016-12-17 06:23 | ACF ---
Admission Criteria Forms PSYCHIATRIC DISORDERS Clinical Indications for Inpatient Care (Place 'X' for any and all applicable criteria): Ongoing inpatient care may be needed for 1 or more of the following(1)(2)(3)(4)( 6)(7)(8): [ ]I. Danger to self or others not manageable at lower level of care. [ ]II. Grave disability (eg, inability to perform self care necessary at lower level of care) [ ]III. Agitation or inappropriate behavior interfering with care for primary condition (eg, attempting to discontinue lines or drains prematurely, unable to cooperate with respiratory care) [X]IV. Severe disability or disorder indicated by ALL of the following: [X]a) Severe behavioral health disorder-related symptoms or condition indicated by 1 or more of the following: [X]i) Severe problem with cognition, memory, judgment, or impulse control [ ]ii) Severe clinical manifestations (eg, hallucinations, delusions, other acute psychotic symptoms, sisi, extreme agitation or anxiety) [X]b) Patient management at lower level of care is not feasible until acute intervention or modification is initiated. Extended stay beyond goal length of stay for the primary condition may be needed untilALLof the following are present(1)(2)(3)(4)(722)(23): [ ]a) Danger to self or others is absent or manageable at lower level of care [ ]b) Behavior crisis management, including physical or chemical restraints, is required and is not available at a lower level of care. [ ]c) Behavioral symptoms (e.g., agitation, somnolence, inappropriate behavior) are present, and are not manageable at a lower level of care. [ ]d) Patient cannot understand follow-up treatment and crisis plan. [ ]e) Provider and supports are sufficiently available at lower level of care. [ ]f) Patient can participate (e.g., verify absence of plan for harm) and is in needed of monitoring. The original [facility] [email or web address] content created by [employer] has been revised. The portions of the content which have been revised are identified through the use of italic text, and [employer] has neither reviewed nor approved the modified material. All other unmodified content is copyright [facility] [employer]. Please see references footnoted in the original [facility] edition 2015 Admission Criteria Met?: Yes DEDRICK [place] Dec 17, 2016 06:23
[2016-12-17] MEDS: ASPIRIN ENTERIC COATED 81 MG TABLET.DR. PO SCH (08:03)
[2016-12-17] MEDS: SENNOSIDES/DOCUSATE 8.6/50MG TABLET. PO SCH (08:03)
[2016-12-17] MEDS: DIVALPROEX 125 MG CAP.SPRINK PO SCH ×3 (08:03→19:47)
[2016-12-17] MEDS: QUEtiapine 50 MG TABLET. PO SCH ×3 (08:03→16:58)
[2016-12-17] MEDS: CARBIDOPA/LEVODOPA 25/100MG TABLET PO SCH ×3 (08:03→19:47)
[2016-12-17] MEDS: MAGNESIUM OXIDE 400 MG TABLET PO SCH ×2 (08:03→16:58)
[2016-12-17] MEDS: busPIRone 5 MG TABLET. PO SCH ×3 (08:03→16:58)
[2016-12-17] MEDS: ALPRAZolam 0.5 MG TABLET PO SCH (08:12)
[2016-12-17] MEDS: traMADol 50 MG TABLET PO SCH ×3 (08:12→19:48)
[2016-12-17] MEDS: SERTRALINE 50 MG TABLET. PO SCH (08:12)
[2016-12-17 10:01] LABS: BASO % 1 % (0-3); EOS # 0.1 x10^3/uL (0.0-0.7); EOS % 1 % (0-3); HEMATOCRIT 36.2 % (39.0-53.0); HEMOGLOBIN 12.2 g/dL (13.0-17.5); LYMPH # 1.6 x10^3/uL (1.0-4.8); LYMPH % 24 % (24-48); MEAN CORPUSCULAR HEMOGLOBIN 31 pg (25-35); MEAN CORPUSCULAR HGB CONC 34 g/dL (31-37); MEAN CORPUSCULAR VOLUME 93 fL (79-100); MONO # 0.7 x10^3/uL (0.0-1.1); MONO % 11 % (0-9); NEUT # 4.1 x10^3uL (1.8-7.7); NEUT % 63 % (31-73); PLATELET COUNT 160 x10^3/uL (140-400); RED BLOOD COUNT 3.91 x10^6/uL (4.30-5.70); RED CELL DISTRIBUTION WIDTH 14.3 % (11.5-14.5); WHITE BLOOD COUNT 6.5 x10^3/uL (4.0-11.0)
[2016-12-17 10:18] LABS: ALBUMIN 2.5 g/dL (3.4-5.0); ALBUMIN/GLOBULIN RATIO 0.8 (1.0-1.7); ALK PHOS 63 U/L (46-116); ALT (SGPT) 22 U/L (16-63); ANION GAP 1 (6-14); AST (SGOT) 23 U/L (15-37); BLOOD UREA NITROGEN 26 mg/dL (8-26); BUN/CREATININE RATIO 24 (6-20); CALCIUM 8.6 mg/dL (8.5-10.1); CARBON DIOXIDE 35 mmol/L (21-32); CHLORIDE 107 mmol/L (98-107); CREATININE 1.1 mg/dL (0.7-1.3); GFR 65.4; GLUCOSE 97 mg/dL (70-99); POTASSIUM 3.9 mmol/L (3.5-5.1); SODIUM 143 mmol/L (136-145); TOTAL BILIRUBIN 0.4 mg/dL (0.2-1.0); TOTAL PROTEIN 5.6 g/dL (6.4-8.2); VAL ACID 62 mcg/mL (50-100)
[2016-12-17 16:33] VITALS: BP 123/78
[2016-12-17] MEDS: MIRTAZAPINE 30 MG TABLET PO SCH (19:47)
[2016-12-17] MEDS: ENOXAPARIN 40 MG/0.4 ML DISP.SYRIN. SQ SCH (19:48)
[2016-12-17] MEDS: traZODone 50 MG TABLET. PO PRN (19:48)
--- NOTE | 2016-12-17 20:23 | PDOC ---
Exam Gerardo Demential Exam: Gerardo Note: Please also refer to the separate dictated note~for this date of service dictated separately.~Patient seen individually. Discussed the patient with Nursing staff reviewed the chart.~Reviewed interim history and current functioning. Reviewed vital signs,~Labs/ Radiology~and current medications noted below. Continue current treatment with the changes noted in the dictated addendum note Assessment: Vital Signs: Vital Signs Date Time Temp Pulse Resp B/P (MAP) Pulse Ox O2 Delivery O2 Flow Rate FiO2 12/17/16 19:48 20 12/17/16 16:33 97.3 79 123/78 (93) 98 Room Air I&O Intake and Output 12/18/16 07:00 Intake Total 960 ml Balance 960 ml Intake Oral 960 ml # Bowel Movements 1 Labs: Laboratory Tests Test 12/17/16 09:44 White Blood Count 6.5 x10^3/uL (4.0-11.0) Red Blood Count 3.91 x10^6/uL (4.30-5.70) L Hemoglobin 12.2 g/dL (13.0-17.5) L Hematocrit 36.2 % (39.0-53.0) L Mean Corpuscular Volume 93 fL (79-100) Mean Corpuscular Hemoglobin 31 pg (25-35) Mean Corpuscular Hemoglobin Concent 34 g/dL (31-37) Red Cell Distribution Width 14.3 % (11.5-14.5) Platelet Count 160 x10^3/uL (140-400) Neutrophils (%) (Auto) 63 % (31-73) Lymphocytes (%) (Auto) 24 % (24-48) Monocytes (%) (Auto) 11 % (0-9) H Eosinophils (%) (Auto) 1 % (0-3) Basophils (%) (Auto) 1 % (0-3) Neutrophils # (Auto) 4.1 x10^3uL (1.8-7.7) Lymphocytes # (Auto) 1.6 x10^3/uL (1.0-4.8) Monocytes # (Auto) 0.7 x10^3/uL (0.0-1.1) Eosinophils # (Auto) 0.1 x10^3/uL (0.0-0.7) Basophils # (Auto) 0.0 x10^3/uL (0.0-0.2) Sodium Level 143 mmol/L (136-145) Potassium Level 3.9 mmol/L (3.5-5.1) Chloride Level 107 mmol/L (98-107) Carbon Dioxide Level 35 mmol/L (21-32) H Anion Gap 1 (6-14) L Blood Urea Nitrogen 26 mg/dL (8-26) Creatinine 1.1 mg/dL (0.7-1.3) Estimated GFR (Cockcroft-Gault) 65.4 BUN/Creatinine Ratio 24 (6-20) H Glucose Level 97 mg/dL (70-99) Calcium Level 8.6 mg/dL (8.5-10.1) Magnesium Level 2.0 mg/dL (1.8-2.4) Total Bilirubin 0.4 mg/dL (0.2-1.0) Aspartate Amino Transferase (AST) 23 U/L (15-37) Alanine Aminotransferase (ALT) 22 U/L (16-63) Alkaline Phosphatase 63 U/L (46-116) Total Protein 5.6 g/dL (6.4-8.2) L Albumin 2.5 g/dL (3.4-5.0) L Albumin/Globulin Ratio 0.8 (1.0-1.7) L Valproic Acid Level 62 mcg/mL (50-100) Valproic Acid Last Dose Date 12/16/2016 Valproic Acid Last Dose Time 2100 Current Medications: Meds: Current Medications Alprazolam (Xanax) 0.25 mg PRN Q4HRS PRN PO ANXIETY / AGITATION Last administered on 12/11/16 17:55; Start 12/10/16 at 20:15 Alprazolam (Xanax) 0.5 mg DAILY PO Last administered on 12/17/16 08:12; Start 12/11/16 at 09:00 Bupropion HCl (Wellbutrin Sr) 150 mg BID PO Last administered on 12/11/16 07:45 ; Start 12/10/16 at 21:00; Stop 12/11/16 at 18:54; Status DC Divalproex Sodium (Depakote Sprinkles) 500 mg BID PO Last administered on 19:47; Start 12/10/16 at 21:00 Donepezil HCl (Aricept) 20 mg DAILY PO Last administered on 12/12/16 07:18; Start 12/11/16 at 09:00; Stop 12/12/16 at 18:35; Status DC Mirtazapine (Remeron) 30 mg QHS PO Last administered on 12/17/16 19:47; Start 12/10/16 at 21:00 Quetiapine Fumarate (SEROquel) 50 mg TID PO Last administered on 12/16/16 07: 47; Start 12/10/16 at 21:00; Stop 12/16/16 at 11:04; Status DC Divalproex Sodium (Depakote Sprinkles) 250 mg DAILY@1200 PO Last administered on 12/17/16 11:59; Start 12/11/16 at 12:00 Acetaminophen (Tylenol) 60 mg PRN Q6HRS PRN PO PAIN / TEMP; Start 12/10/16 at 21 :45; Stop 12/12/16 at 12:05; Status DC Aspirin (Aspirin Enteric Coated) 81 mg DAILY PO Last administered on 12/17/16 08:03; Start 12/11/16 at 09:00 Bisacodyl (Dulcolax Supp) 10 mg PRN DAILY PRN RC CONSTIPATION Last administered on 12/14/16 19:15; Start 12/10/16 at 21:45 Magnesium Hydroxide (Milk Of Magnesia) 2,400 mg PRN DAILY PRN PO CONSTIPATION Last administered on 12/14/16 19:15; Start 12/10/16 at 21:45 Polyethylene Glycol (miraLAX) 17 gm PRN DAILY PRN PO CONSTIPATION; Start at 09:00 Senna/Docusate Sodium (Senna Plus) 1 tab DAILY PO Last administered on 08:03; Start 12/11/16 at 09:00 Tramadol HCl (Ultram) 50 mg TID PO Last administered on 12/17/16 19:48; Start 12/10/16 at 22:30 Metronidazole (Nydamax) 1 tiffanie PRN Q72HRS PRN TP APPLY TWICE WEEKLY NEEDED Last administered on 12/12/16 07:18; Start 12/10/16 at 22:15 Ondansetron HCl (Zofran Odt) 4 mg PRN Q8HRS PRN PO NAUSEA; Start 12/10/16 at 22: 15 Enoxaparin Sodium (Lovenox) 40 mg QHS SQ Last administered on 12/17/16 19:48; Start 12/10/16 at 22:30 Magnesium Oxide (Magnesium Oxide) 400 mg BID94 PO Last administered on 16:58; Start 12/11/16 at 16:00 Olanzapine (ZyPREXA ZYDIS) 2.5 mg PRN Q2HR PRN PO PSYCHOSIS Last administered on 12/15/16 16:33; Start 12/11/16 at 17:15 Citalopram Hydrobromide (CeleXA) 10 mg DAILY PO Last administered on 12/13/16 09:40; Start 12/12/16 at 09:00; Stop 12/13/16 at 18:43; Status DC Acetaminophen (Tylenol) 650 mg PRN Q6HRS PRN PO PAIN / TEMP Last administered on 12/14/16 19:39; Start 12/12/16 at 12:15 Carbidopa/Levodopa (Sinemet 25/100) 1 tab TID PO Last administered on 19:47; Start 12/12/16 at 21:00 Vitamin D (Vitamin D3) 50,000 unit WEEKLY PO Last administered on 12/14/16 09: 00; Start 12/14/16 at 09:00 Buspirone HCl (Buspar) 5 mg BID@0900,1300 PO Last administered on 12/16/16 07: 47; Start 12/14/16 at 09:00; Stop 12/16/16 at 12:00; Status DC Sertraline HCl (Zoloft) 50 mg DAILY PO Last administered on 12/16/16 07:47; Start 12/14/16 at 09:00; Stop 12/16/16 at 11:44; Status DC Magnesium Citrate (Citroma) 296 ml PRN 1X PRN PO CONSTIPATION; Start 12/14/16 at 17:30 Buspirone HCl (Buspar) 5 mg BID@0800,1200,1500 PO Last administered on 16:58; Start 12/16/16 at 12:00 Quetiapine Fumarate (SEROquel) 50 mg TID@0800,1200,1500 PO Last administered on 12/17/16 16:58; Start 12/16/16 at 12:00 Sertraline HCl (Zoloft) 50 mg DAILY PO Last administered on 12/17/16 08:12; Start 12/17/16 at 09:00 Trazodone HCl (Desyrel) 50 mg PRN QHS PRN PO INSOMNIA, MAY REPEAT X1 Last administered on 12/17/16 19:48; Start 12/17/16 at 18:15 Active Scripts Active Reported Sulfacetamide-Sulfur 10-5% Crm (Sulfacetamide Sodium/Sulfur) 57 Gm Cream..g. 1 Tiffanie TP PRN DAILY PRN Metronidazole 60 Gm Gel..gram. 1 Tiffanie TP PRN TWICE WEEKLY Dulcolax (Bisacodyl) 10 Mg Supp.rect 10 Mg RC PRN DAILY PRN Miralax (Polyethylene Glycol 3350) 119 Gm Powder 17 Gm PO PRN DAILY PRN Zofran (Ondansetron Hcl) 4 Mg Tablet 4 Mg PO PRN Q8HRS PRN Milk Of Magnesia (Magnesium Hydroxide) 400 Mg/5 Ml Oral.susp 2,400 Mg PO PRN DAILY PRN Biofreeze (Menthol) 118 Ml Gel..ml. 1 Tiffanie TP PRN TID PRN Xanax (Alprazolam) 0.25 Mg Tablet 0.25 Mg PO PRN Q4HRS PRN Claritin (Loratadine) 10 Mg Tablet 10 Mg PO PRN DAILY PRN Maglox Liquid (Mag Hydrox/Al Hydrox/Simeth) 360 Ml Oral.susp 30 Ml PO PRN TID PRN Tylenol (Acetaminophen) 325 Mg Tablet 60 Mg PO PRN Q6HRS PRN Senna S Tablet (Sennosides/Docusate Sodium) 1 Each Tablet 1 Tab PO DAILY Xanax (Alprazolam) 0.5 Mg Tablet 0.5 Mg PO DAILY Tramadol Hcl (Tramadol HCl) 50 Mg Tablet 50 Mg PO TID Seroquel (Quetiapine Fumarate) 50 Mg Tablet 50 Mg PO TID Depakote Sprinkle (Divalproex Sodium) 125 Mg Cap.sprink 250 Mg PO DAILY@1200 Remeron (Mirtazapine) 30 Mg Tablet 30 Mg PO QHS Depakote Sprinkle (Divalproex Sodium) 125 Mg Cap.sprink 500 Mg PO BID Wellbutrin Sr (Bupropion Hcl) 150 Mg Tablet.er 150 Mg PO BID Aricept (Donepezil Hcl) 10 Mg Tablet 20 Mg PO DAILY Aspirin Ec (Aspirin) 81 Mg Tablet.dr 81 Mg PO DAILY Diagnosis: Problems: (1) Anxiety disorder (2) Dementia in Alzheimer's disease with delusions (3) Dementia in Alzheimer's disease with depression (4) Dementia, vascular, with delusions (5) Dementia, vascular, with depression (6) Impulse control disorder TATIANNA MYLES MD Dec 17, 2016 20:23
[2016-12-18 06:08] VITALS: BP 104/72
[2016-12-18] MEDS: ALPRAZolam 0.5 MG TABLET PO SCH (07:29)
[2016-12-18] MEDS: QUEtiapine 50 MG TABLET. PO SCH ×3 (07:29→16:36)
[2016-12-18] MEDS: SERTRALINE 50 MG TABLET. PO SCH (07:29)
[2016-12-18] MEDS: SENNOSIDES/DOCUSATE 8.6/50MG TABLET. PO SCH (07:29)
[2016-12-18] MEDS: ASPIRIN ENTERIC COATED 81 MG TABLET.DR. PO SCH (07:29)
[2016-12-18] MEDS: CARBIDOPA/LEVODOPA 25/100MG TABLET PO SCH ×3 (07:30→19:52)
[2016-12-18] MEDS: traMADol 50 MG TABLET PO SCH ×3 (07:30→19:52)
[2016-12-18] MEDS: MAGNESIUM OXIDE 400 MG TABLET PO SCH ×2 (07:30→16:36)
[2016-12-18] MEDS: busPIRone 5 MG TABLET. PO SCH ×3 (07:30→16:36)
[2016-12-18] MEDS: DIVALPROEX 125 MG CAP.SPRINK PO SCH ×3 (07:32→19:52)
--- NOTE | 2016-12-18 13:18 | PN ---
DATE: 12/16/2016 This late entry 12/16/2016 covers elements not covered in my initial note of 12/16/2016. The patient ____ at a treatment team meeting morning of 12/16/2016, seen individually evening of 12/16/2016. He has been calm, confused, sleeping well. He seems to get agitated, psychotic, almost as a clock worker on 4:30 p.m. per nursing staff observation and information that we collected from the [facility]. REVIEW OF SYSTEMS: Ambulation impaired, in wheelchair. No CV, , pulmonary, eye, ENT system symptoms on review. Reliability poor. MENTAL STATUS EXAM: Oriented to himself. Insight, judgment, recent and remote memory, attention, concentration, fund of knowledge poor, consistent with his diagnosis. Valproic acid level therapeutic at 72. LABORATORY DATA: Reviewed. IMPRESSION: Unchanged from initial note. PLAN: Increase the BuSpar 5 mg twice a day to 5 mg at 8:00 a.m. noon and 3 p.m. Seroquel is at 50 t.i.d., we will change to 50 mg at 8:00 a.m. noon and 3 p.m. to help specifically for this 4:30 p.m. agitation, psychotic symptoms. Maintain Zoloft, Depakote, and Remeron along with Xanax scheduled and p.r.n.. Review drug interactions risk/benefit ratio favors no further change. MAN Juanita MYLES MD DR: TONO/ugo JOB#: [id number] / [id number]
[2016-12-18 15:43] VITALS: BP 132/80
[2016-12-18] MEDS: traZODone 50 MG TABLET. PO PRN (19:52)
[2016-12-18] MEDS: MIRTAZAPINE 30 MG TABLET PO SCH (19:52)
[2016-12-18] MEDS: ENOXAPARIN 40 MG/0.4 ML DISP.SYRIN. SQ SCH (19:52)
--- NOTE | 2016-12-18 22:45 | PDOC ---
Exam Gerardo Demential Exam: Gerardo Note: Please also refer to the separate dictated note~for this date of service dictated separately.~Patient seen individually. Discussed the patient with Nursing staff reviewed the chart.~Reviewed interim history and current functioning. Reviewed vital signs,~Labs/ Radiology~and current medications noted below. Continue current treatment with the changes noted in the dictated addendum note Assessment: Vital Signs: Vital Signs Date Time Temp Pulse Resp B/P (MAP) Pulse Ox O2 Delivery O2 Flow Rate FiO2 12/18/16 19:52 20 12/18/16 15:43 97.8 80 132/80 (97) 96 12/17/16 16:33 Room Air I&O Intake and Output 12/19/16 07:00 Intake Total 960 ml Balance 960 ml Intake Oral 960 ml Current Medications: Meds: Current Medications Alprazolam (Xanax) 0.25 mg PRN Q4HRS PRN PO ANXIETY / AGITATION Last administered on 12/11/16 17:55; Start 12/10/16 at 20:15 Alprazolam (Xanax) 0.5 mg DAILY PO Last administered on 12/18/16 07:29; Start 12/11/16 at 09:00 Bupropion HCl (Wellbutrin Sr) 150 mg BID PO Last administered on 12/11/16 07:45 ; Start 12/10/16 at 21:00; Stop 12/11/16 at 18:54; Status DC Divalproex Sodium (Depakote Sprinkles) 500 mg BID PO Last administered on 19:52; Start 12/10/16 at 21:00 Donepezil HCl (Aricept) 20 mg DAILY PO Last administered on 12/12/16 07:18; Start 12/11/16 at 09:00; Stop 12/12/16 at 18:35; Status DC Mirtazapine (Remeron) 30 mg QHS PO Last administered on 12/18/16 19:52; Start 12/10/16 at 21:00 Quetiapine Fumarate (SEROquel) 50 mg TID PO Last administered on 12/16/16 07: 47; Start 12/10/16 at 21:00; Stop 12/16/16 at 11:04; Status DC Divalproex Sodium (Depakote Sprinkles) 250 mg DAILY@1200 PO Last administered on 12/18/16 12:29; Start 12/11/16 at 12:00 Acetaminophen (Tylenol) 60 mg PRN Q6HRS PRN PO PAIN / TEMP; Start 12/10/16 at 21 :45; Stop 12/12/16 at 12:05; Status DC Aspirin (Aspirin Enteric Coated) 81 mg DAILY PO Last administered on 12/18/16 07:29; Start 12/11/16 at 09:00 Bisacodyl (Dulcolax Supp) 10 mg PRN DAILY PRN RC CONSTIPATION Last administered on 12/14/16 19:15; Start 12/10/16 at 21:45 Magnesium Hydroxide (Milk Of Magnesia) 2,400 mg PRN DAILY PRN PO CONSTIPATION Last administered on 12/14/16 19:15; Start 12/10/16 at 21:45 Polyethylene Glycol (miraLAX) 17 gm PRN DAILY PRN PO CONSTIPATION; Start at 09:00 Senna/Docusate Sodium (Senna Plus) 1 tab DAILY PO Last administered on 07:29; Start 12/11/16 at 09:00 Tramadol HCl (Ultram) 50 mg TID PO Last administered on 12/18/16 19:52; Start 12/10/16 at 22:30 Metronidazole (Nydamax) 1 tiffanie PRN Q72HRS PRN TP APPLY TWICE WEEKLY NEEDED Last administered on 12/12/16 07:18; Start 12/10/16 at 22:15 Ondansetron HCl (Zofran Odt) 4 mg PRN Q8HRS PRN PO NAUSEA; Start 12/10/16 at 22: 15 Enoxaparin Sodium (Lovenox) 40 mg QHS SQ Last administered on 12/18/16 19:52; Start 12/10/16 at 22:30 Magnesium Oxide (Magnesium Oxide) 400 mg BID94 PO Last administered on 16:36; Start 12/11/16 at 16:00 Olanzapine (ZyPREXA ZYDIS) 2.5 mg PRN Q2HR PRN PO PSYCHOSIS Last administered on 12/15/16 16:33; Start 12/11/16 at 17:15 Citalopram Hydrobromide (CeleXA) 10 mg DAILY PO Last administered on 12/13/16 09:40; Start 12/12/16 at 09:00; Stop 12/13/16 at 18:43; Status DC Acetaminophen (Tylenol) 650 mg PRN Q6HRS PRN PO PAIN / TEMP Last administered on 12/14/16 19:39; Start 12/12/16 at 12:15 Carbidopa/Levodopa (Sinemet 25/100) 1 tab TID PO Last administered on 19:52; Start 12/12/16 at 21:00 Vitamin D (Vitamin D3) 50,000 unit WEEKLY PO Last administered on 12/14/16 09: 00; Start 12/14/16 at 09:00 Buspirone HCl (Buspar) 5 mg BID@0900,1300 PO Last administered on 12/16/16 07: 47; Start 12/14/16 at 09:00; Stop 12/16/16 at 12:00; Status DC Sertraline HCl (Zoloft) 50 mg DAILY PO Last administered on 12/16/16 07:47; Start 12/14/16 at 09:00; Stop 12/16/16 at 11:44; Status DC Magnesium Citrate (Citroma) 296 ml PRN 1X PRN PO CONSTIPATION; Start 12/14/16 at 17:30 Buspirone HCl (Buspar) 5 mg BID@0800,1200,1500 PO Last administered on 16:36; Start 12/16/16 at 12:00 Quetiapine Fumarate (SEROquel) 50 mg TID@0800,1200,1500 PO Last administered on 12/18/16 16:36; Start 12/16/16 at 12:00 Sertraline HCl (Zoloft) 50 mg DAILY PO Last administered on 12/18/16 07:29; Start 12/17/16 at 09:00 Trazodone HCl (Desyrel) 50 mg PRN QHS PRN PO INSOMNIA, MAY REPEAT X1 Last administered on 12/18/16 19:52; Start 12/17/16 at 18:15 Active Scripts Active Reported Sulfacetamide-Sulfur 10-5% Crm (Sulfacetamide Sodium/Sulfur) 57 Gm Cream..g. 1 Tiffanie TP PRN DAILY PRN Metronidazole 60 Gm Gel..gram. 1 Tiffanie TP PRN TWICE WEEKLY Dulcolax (Bisacodyl) 10 Mg Supp.rect 10 Mg RC PRN DAILY PRN Miralax (Polyethylene Glycol 3350) 119 Gm Powder 17 Gm PO PRN DAILY PRN Zofran (Ondansetron Hcl) 4 Mg Tablet 4 Mg PO PRN Q8HRS PRN Milk Of Magnesia (Magnesium Hydroxide) 400 Mg/5 Ml Oral.susp 2,400 Mg PO PRN DAILY PRN Biofreeze (Menthol) 118 Ml Gel..ml. 1 Tiffanie TP PRN TID PRN Xanax (Alprazolam) 0.25 Mg Tablet 0.25 Mg PO PRN Q4HRS PRN Claritin (Loratadine) 10 Mg Tablet 10 Mg PO PRN DAILY PRN Maglox Liquid (Mag Hydrox/Al Hydrox/Simeth) 360 Ml Oral.susp 30 Ml PO PRN TID PRN Tylenol (Acetaminophen) 325 Mg Tablet 60 Mg PO PRN Q6HRS PRN Senna S Tablet (Sennosides/Docusate Sodium) 1 Each Tablet 1 Tab PO DAILY Xanax (Alprazolam) 0.5 Mg Tablet 0.5 Mg PO DAILY Tramadol Hcl (Tramadol HCl) 50 Mg Tablet 50 Mg PO TID Seroquel (Quetiapine Fumarate) 50 Mg Tablet 50 Mg PO TID Depakote Sprinkle (Divalproex Sodium) 125 Mg Cap.sprink 250 Mg PO DAILY@1200 Remeron (Mirtazapine) 30 Mg Tablet 30 Mg PO QHS Depakote Sprinkle (Divalproex Sodium) 125 Mg Cap.sprink 500 Mg PO BID Wellbutrin Sr (Bupropion Hcl) 150 Mg Tablet.er 150 Mg PO BID Aricept (Donepezil Hcl) 10 Mg Tablet 20 Mg PO DAILY Aspirin Ec (Aspirin) 81 Mg Tablet.dr 81 Mg PO DAILY Diagnosis: Problems: (1) Impulse control disorder (2) Dementia, vascular, with depression (3) Dementia, vascular, with delusions (4) Dementia in Alzheimer's disease with depression (5) Dementia in Alzheimer's disease with delusions (6) Anxiety disorder TATIANNA MYLES MD Dec 18, 2016 22:45
[2016-12-19 05:48] VITALS: BP 96/60
--- NOTE | 2016-12-19 06:20 | PN ---
DATE: 12/17/2016 PSYCHIATRIC PROGRESS NOTE This late entry for 12/17/2016 covers elements not covered in my initial note of 12/17/2016. SUBJECTIVE: I met with the patient evening of 12/17/2016. The patient remains confused, repeatedly trying to stand up from his Broda chair. Earlier in the day, he received no PRNs, but after supper time he was agitated, disruptive, aggressive, loud. Staff had to call for additional help to contain him. He was restless the previous evening, slept poorly. REVIEW OF SYSTEMS: No CV, , pulmonary, eye, ENT system symptoms on review. Reliability poor. MENTAL STATUS EXAM: Oriented to himself. Insight, judgment, recent and remote memory, attention, concentration, fund of knowledge poor, consistent with his diagnosis mentioned in my initial note. PLAN: Start trazodone 50 mg at bedtime p.r.n., may repeat x 1 for insomnia. Maintain the rest of the psychotropics mentioned in my initial note. Valproic acid level therapeutic at 62, Depakote Sprinkles 500 b.i.d. 250 at noon. Reviewed drug interactions, risk/benefit ratio favors no further change. We will see how he does with improved sleep and then the agitation, may consider increasing BuSpar or Seroquel. TATIANNA MYLES MD DR: TONO/ugo JOB#: [id number] / [id number]
[2016-12-19] MEDS: busPIRone 5 MG TABLET. PO SCH ×3 (07:03→15:47)
[2016-12-19] MEDS: DIVALPROEX 125 MG CAP.SPRINK PO SCH ×3 (07:03→19:15)
[2016-12-19] MEDS: SENNOSIDES/DOCUSATE 8.6/50MG TABLET. PO SCH (07:03)
[2016-12-19] MEDS: MAGNESIUM OXIDE 400 MG TABLET PO SCH ×2 (07:04→15:44)
[2016-12-19] MEDS: CARBIDOPA/LEVODOPA 25/100MG TABLET PO SCH ×3 (07:04→19:15)
[2016-12-19] MEDS: ASPIRIN ENTERIC COATED 81 MG TABLET.DR. PO SCH (07:04)
[2016-12-19] MEDS: SERTRALINE 50 MG TABLET. PO SCH (07:04)
[2016-12-19] MEDS: QUEtiapine 50 MG TABLET. PO SCH ×3 (07:04→15:47)
[2016-12-19] MEDS: traMADol 50 MG TABLET PO SCH ×3 (07:06→19:15)
[2016-12-19] MEDS: ALPRAZolam 0.5 MG TABLET PO SCH (09:00)
[2016-12-19] MEDS: ALPRAZolam 0.25 MG TABLET PO PRN ×2 (11:00→18:11)
[2016-12-19 16:03] VITALS: BP 104/68
[2016-12-19] MEDS: ENOXAPARIN 40 MG/0.4 ML DISP.SYRIN. SQ SCH (19:14)
[2016-12-19] MEDS: traZODone 50 MG TABLET. PO PRN ×2 (19:15→21:41)
[2016-12-19] MEDS: MIRTAZAPINE 30 MG TABLET PO SCH (19:15)
--- NOTE | 2016-12-19 19:54 | PDOC ---
Exam Gerardo Demential Exam: Gerardo Note: Please also refer to the separate dictated note~for this date of service dictated separately.~Patient seen individually. Discussed the patient with Nursing staff reviewed the chart.~Reviewed interim history and current functioning. Reviewed vital signs,~Labs/ Radiology~and current medications noted below. Continue current treatment with the changes noted in the dictated addendum note Assessment: Vital Signs: Vital Signs Date Time Temp Pulse Resp B/P (MAP) Pulse Ox O2 Delivery O2 Flow Rate FiO2 12/19/16 19:15 20 12/19/16 16:03 97.8 76 104/68 (80) 96 12/17/16 16:33 Room Air I&O Intake and Output 12/20/16 07:00 Intake Total 1020 ml Balance 1020 ml Intake Oral 1020 ml Current Medications: Meds: Current Medications Alprazolam (Xanax) 0.25 mg PRN Q4HRS PRN PO ANXIETY / AGITATION Last administered on 12/19/16 18:11; Start 12/10/16 at 20:15 Alprazolam (Xanax) 0.5 mg DAILY PO Last administered on 12/19/16 09:00; Start 12/11/16 at 09:00 Bupropion HCl (Wellbutrin Sr) 150 mg BID PO Last administered on 12/11/16 07:45 ; Start 12/10/16 at 21:00; Stop 12/11/16 at 18:54; Status DC Divalproex Sodium (Depakote Sprinkles) 500 mg BID PO Last administered on 19:15; Start 12/10/16 at 21:00 Donepezil HCl (Aricept) 20 mg DAILY PO Last administered on 12/12/16 07:18; Start 12/11/16 at 09:00; Stop 12/12/16 at 18:35; Status DC Mirtazapine (Remeron) 30 mg QHS PO Last administered on 12/19/16 19:15; Start 12/10/16 at 21:00 Quetiapine Fumarate (SEROquel) 50 mg TID PO Last administered on 12/16/16 07: 47; Start 12/10/16 at 21:00; Stop 12/16/16 at 11:04; Status DC Divalproex Sodium (Depakote Sprinkles) 250 mg DAILY@1200 PO Last administered on 12/19/16 12:18; Start 12/11/16 at 12:00 Acetaminophen (Tylenol) 60 mg PRN Q6HRS PRN PO PAIN / TEMP; Start 12/10/16 at 21 :45; Stop 12/12/16 at 12:05; Status DC Aspirin (Aspirin Enteric Coated) 81 mg DAILY PO Last administered on 12/19/16 07:04; Start 12/11/16 at 09:00 Bisacodyl (Dulcolax Supp) 10 mg PRN DAILY PRN RC CONSTIPATION Last administered on 12/14/16 19:15; Start 12/10/16 at 21:45 Magnesium Hydroxide (Milk Of Magnesia) 2,400 mg PRN DAILY PRN PO CONSTIPATION Last administered on 12/14/16 19:15; Start 12/10/16 at 21:45 Polyethylene Glycol (miraLAX) 17 gm PRN DAILY PRN PO CONSTIPATION; Start at 09:00 Senna/Docusate Sodium (Senna Plus) 1 tab DAILY PO Last administered on 07:03; Start 12/11/16 at 09:00 Tramadol HCl (Ultram) 50 mg TID PO Last administered on 12/19/16 19:15; Start 12/10/16 at 22:30 Metronidazole (Nydamax) 1 tiffanie PRN Q72HRS PRN TP APPLY TWICE WEEKLY NEEDED Last administered on 12/12/16 07:18; Start 12/10/16 at 22:15 Ondansetron HCl (Zofran Odt) 4 mg PRN Q8HRS PRN PO NAUSEA; Start 12/10/16 at 22: 15 Enoxaparin Sodium (Lovenox) 40 mg QHS SQ Last administered on 12/19/16 19:14; Start 12/10/16 at 22:30 Magnesium Oxide (Magnesium Oxide) 400 mg BID94 PO Last administered on 15:44; Start 12/11/16 at 16:00 Olanzapine (ZyPREXA ZYDIS) 2.5 mg PRN Q2HR PRN PO PSYCHOSIS Last administered on 12/15/16 16:33; Start 12/11/16 at 17:15 Citalopram Hydrobromide (CeleXA) 10 mg DAILY PO Last administered on 12/13/16 09:40; Start 12/12/16 at 09:00; Stop 12/13/16 at 18:43; Status DC Acetaminophen (Tylenol) 650 mg PRN Q6HRS PRN PO PAIN / TEMP Last administered on 12/14/16 19:39; Start 12/12/16 at 12:15 Carbidopa/Levodopa (Sinemet 25/100) 1 tab TID PO Last administered on 19:15; Start 12/12/16 at 21:00 Vitamin D (Vitamin D3) 50,000 unit WEEKLY PO Last administered on 12/14/16 09: 00; Start 12/14/16 at 09:00 Buspirone HCl (Buspar) 5 mg BID@0900,1300 PO Last administered on 12/16/16 07: 47; Start 12/14/16 at 09:00; Stop 12/16/16 at 12:00; Status DC Sertraline HCl (Zoloft) 50 mg DAILY PO Last administered on 12/16/16 07:47; Start 12/14/16 at 09:00; Stop 12/16/16 at 11:44; Status DC Magnesium Citrate (Citroma) 296 ml PRN 1X PRN PO CONSTIPATION; Start 12/14/16 at 17:30 Buspirone HCl (Buspar) 5 mg BID@0800,1200,1500 PO Last administered on 15:47; Start 12/16/16 at 12:00 Quetiapine Fumarate (SEROquel) 50 mg TID@0800,1200,1500 PO Last administered on 12/19/16 15:47; Start 12/16/16 at 12:00 Sertraline HCl (Zoloft) 50 mg DAILY PO Last administered on 12/19/16 07:04; Start 12/17/16 at 09:00 Trazodone HCl (Desyrel) 50 mg PRN QHS PRN PO INSOMNIA, MAY REPEAT X1 Last administered on 12/19/16 19:15; Start 12/17/16 at 18:15 Active Scripts Active Reported Sulfacetamide-Sulfur 10-5% Crm (Sulfacetamide Sodium/Sulfur) 57 Gm Cream..g. 1 Tiffanie TP PRN DAILY PRN Metronidazole 60 Gm Gel..gram. 1 Tiffanie TP PRN TWICE WEEKLY Dulcolax (Bisacodyl) 10 Mg Supp.rect 10 Mg RC PRN DAILY PRN Miralax (Polyethylene Glycol 3350) 119 Gm Powder 17 Gm PO PRN DAILY PRN Zofran (Ondansetron Hcl) 4 Mg Tablet 4 Mg PO PRN Q8HRS PRN Milk Of Magnesia (Magnesium Hydroxide) 400 Mg/5 Ml Oral.susp 2,400 Mg PO PRN DAILY PRN Biofreeze (Menthol) 118 Ml Gel..ml. 1 Tiffanie TP PRN TID PRN Xanax (Alprazolam) 0.25 Mg Tablet 0.25 Mg PO PRN Q4HRS PRN Claritin (Loratadine) 10 Mg Tablet 10 Mg PO PRN DAILY PRN Maglox Liquid (Mag Hydrox/Al Hydrox/Simeth) 360 Ml Oral.susp 30 Ml PO PRN TID PRN Tylenol (Acetaminophen) 325 Mg Tablet 60 Mg PO PRN Q6HRS PRN Senna S Tablet (Sennosides/Docusate Sodium) 1 Each Tablet 1 Tab PO DAILY Xanax (Alprazolam) 0.5 Mg Tablet 0.5 Mg PO DAILY Tramadol Hcl (Tramadol HCl) 50 Mg Tablet 50 Mg PO TID Seroquel (Quetiapine Fumarate) 50 Mg Tablet 50 Mg PO TID Depakote Sprinkle (Divalproex Sodium) 125 Mg Cap.sprink 250 Mg PO DAILY@1200 Remeron (Mirtazapine) 30 Mg Tablet 30 Mg PO QHS Depakote Sprinkle (Divalproex Sodium) 125 Mg Cap.sprink 500 Mg PO BID Wellbutrin Sr (Bupropion Hcl) 150 Mg Tablet.er 150 Mg PO BID Aricept (Donepezil Hcl) 10 Mg Tablet 20 Mg PO DAILY Aspirin Ec (Aspirin) 81 Mg Tablet.dr 81 Mg PO DAILY Diagnosis: Problems: (1) Anxiety disorder (2) Dementia in Alzheimer's disease with delusions (3) Dementia in Alzheimer's disease with depression (4) Dementia, vascular, with delusions (5) Dementia, vascular, with depression (6) Impulse control disorder TATIANNA MYLES MD Dec 19, 2016 19:54
[2016-12-19] MEDS: BISACODYL 10 MG SUPP.RECT RC PRN (22:52)
--- NOTE | 2016-12-20 00:52 | PN ---
DATE: 12/18/2016 This is a late entry of 12/18/2016 covers elements not covered in my initial note of 12/18/2016. SUBJECTIVE: The patient is compliant with his medications, quite confused. He had a nap in the afternoon, then does better in the evening following that. More cooperative than the day before. REVIEW OF SYSTEMS: Ambulation impaired, in a wheelchair. No CV, , pulmonary, eye, ENT system symptoms on review. Reliability poor. MENTAL STATUS EXAM: Oriented to himself. Insight, judgment, recent and remote memory, attention, concentration, fund of knowledge poor, consistent with his diagnosis mentioned in my initial note. Valproic acid level of 62, therapeutic. Continue current psychotropics mentioned in my initial note. Review drug interactions. Risk/benefit ratio favors no further change. MAN Juanita MYLES MD DR: TONO/ugo JOB#: [id number] / [id number]
[2016-12-20 06:16] VITALS: BP 101/67
[2016-12-20] MEDS: busPIRone 5 MG TABLET. PO SCH ×3 (08:05→15:41)
[2016-12-20] MEDS: DIVALPROEX 125 MG CAP.SPRINK PO SCH ×3 (08:05→19:35)
[2016-12-20] MEDS: ALPRAZolam 0.5 MG TABLET PO SCH (08:05)
[2016-12-20] MEDS: CARBIDOPA/LEVODOPA 25/100MG TABLET PO SCH ×3 (08:05→19:35)
[2016-12-20] MEDS: SERTRALINE 50 MG TABLET. PO SCH (08:05)
[2016-12-20] MEDS: ASPIRIN ENTERIC COATED 81 MG TABLET.DR. PO SCH (08:06)
[2016-12-20] MEDS: QUEtiapine 50 MG TABLET. PO SCH ×3 (08:06→15:40)
[2016-12-20] MEDS: traMADol 50 MG TABLET PO SCH ×3 (08:07→19:38)
[2016-12-20] MEDS: MAGNESIUM OXIDE 400 MG TABLET PO SCH ×2 (08:10→15:40)
[2016-12-20] MEDS: SENNOSIDES/DOCUSATE 8.6/50MG TABLET. PO SCH (09:00)
[2016-12-20 16:19] VITALS: BP 106/65
[2016-12-20] MEDS: ENOXAPARIN 40 MG/0.4 ML DISP.SYRIN. SQ SCH (19:35)
[2016-12-20] MEDS: MIRTAZAPINE 30 MG TABLET PO SCH (19:35)
--- NOTE | 2016-12-20 19:50 | PDOC ---
Exam Gerardo Demential Exam: Gerardo Note: Please also refer to the separate dictated note~for this date of service dictated separately.~Patient seen individually. Discussed the patient with Nursing staff reviewed the chart.~Reviewed interim history and current functioning. Reviewed vital signs,~Labs/ Radiology~and current medications noted below. Continue current treatment with the changes noted in the dictated addendum note Assessment: Vital Signs: Vital Signs Date Time Temp Pulse Resp B/P (MAP) Pulse Ox O2 Delivery O2 Flow Rate FiO2 12/20/16 19:38 18 Room Air 12/20/16 16:19 97.9 68 106/65 (90) 94 I&O Intake and Output 12/21/16 07:00 Intake Total 720 ml Balance 720 ml Intake Oral 720 ml Current Medications: Meds: Current Medications Alprazolam (Xanax) 0.25 mg PRN Q4HRS PRN PO ANXIETY / AGITATION Last administered on 12/19/16 18:11; Start 12/10/16 at 20:15 Alprazolam (Xanax) 0.5 mg DAILY PO Last administered on 12/20/16 08:05; Start 12/11/16 at 09:00 Bupropion HCl (Wellbutrin Sr) 150 mg BID PO Last administered on 12/11/16 07:45 ; Start 12/10/16 at 21:00; Stop 12/11/16 at 18:54; Status DC Divalproex Sodium (Depakote Sprinkles) 500 mg BID PO Last administered on 19:35; Start 12/10/16 at 21:00 Donepezil HCl (Aricept) 20 mg DAILY PO Last administered on 12/12/16 07:18; Start 12/11/16 at 09:00; Stop 12/12/16 at 18:35; Status DC Mirtazapine (Remeron) 30 mg QHS PO Last administered on 12/20/16 19:35; Start 12/10/16 at 21:00 Quetiapine Fumarate (SEROquel) 50 mg TID PO Last administered on 12/16/16 07: 47; Start 12/10/16 at 21:00; Stop 12/16/16 at 11:04; Status DC Divalproex Sodium (Depakote Sprinkles) 250 mg DAILY@1200 PO Last administered on 12/20/16 12:22; Start 12/11/16 at 12:00 Acetaminophen (Tylenol) 60 mg PRN Q6HRS PRN PO PAIN / TEMP; Start 12/10/16 at 21 :45; Stop 12/12/16 at 12:05; Status DC Aspirin (Aspirin Enteric Coated) 81 mg DAILY PO Last administered on 12/20/16 08:06; Start 12/11/16 at 09:00 Bisacodyl (Dulcolax Supp) 10 mg PRN DAILY PRN RC CONSTIPATION Last administered on 12/19/16 22:52; Start 12/10/16 at 21:45 Magnesium Hydroxide (Milk Of Magnesia) 2,400 mg PRN DAILY PRN PO CONSTIPATION Last administered on 12/14/16 19:15; Start 12/10/16 at 21:45 Polyethylene Glycol (miraLAX) 17 gm PRN DAILY PRN PO CONSTIPATION Last administered on 12/20/16 08:07; Start 12/11/16 at 09:00 Senna/Docusate Sodium (Senna Plus) 1 tab DAILY PO Last administered on 09:00; Start 12/11/16 at 09:00 Tramadol HCl (Ultram) 50 mg TID PO Last administered on 12/20/16 19:38; Start 12/10/16 at 22:30 Metronidazole (Nydamax) 1 tiffanie PRN Q72HRS PRN TP APPLY TWICE WEEKLY NEEDED Last administered on 12/12/16 07:18; Start 12/10/16 at 22:15 Ondansetron HCl (Zofran Odt) 4 mg PRN Q8HRS PRN PO NAUSEA; Start 12/10/16 at 22: 15 Enoxaparin Sodium (Lovenox) 40 mg QHS SQ Last administered on 12/20/16 19:35; Start 12/10/16 at 22:30 Magnesium Oxide (Magnesium Oxide) 400 mg BID94 PO Last administered on 15:40; Start 12/11/16 at 16:00 Olanzapine (ZyPREXA ZYDIS) 2.5 mg PRN Q2HR PRN PO PSYCHOSIS Last administered on 12/19/16 22:28; Start 12/11/16 at 17:15 Citalopram Hydrobromide (CeleXA) 10 mg DAILY PO Last administered on 12/13/16 09:40; Start 12/12/16 at 09:00; Stop 12/13/16 at 18:43; Status DC Acetaminophen (Tylenol) 650 mg PRN Q6HRS PRN PO PAIN / TEMP Last administered on 12/14/16 19:39; Start 12/12/16 at 12:15 Carbidopa/Levodopa (Sinemet 25/100) 1 tab TID PO Last administered on 19:35; Start 12/12/16 at 21:00 Vitamin D (Vitamin D3) 50,000 unit WEEKLY PO Last administered on 12/14/16 09: 00; Start 12/14/16 at 09:00 Buspirone HCl (Buspar) 5 mg BID@0900,1300 PO Last administered on 12/16/16 07: 47; Start 12/14/16 at 09:00; Stop 12/16/16 at 12:00; Status DC Sertraline HCl (Zoloft) 50 mg DAILY PO Last administered on 12/16/16 07:47; Start 12/14/16 at 09:00; Stop 12/16/16 at 11:44; Status DC Magnesium Citrate (Citroma) 296 ml PRN 1X PRN PO CONSTIPATION; Start 12/14/16 at 17:30 Buspirone HCl (Buspar) 5 mg BID@0800,1200,1500 PO Last administered on 15:41; Start 12/16/16 at 12:00 Quetiapine Fumarate (SEROquel) 50 mg TID@0800,1200,1500 PO Last administered on 12/20/16 15:40; Start 12/16/16 at 12:00 Sertraline HCl (Zoloft) 50 mg DAILY PO Last administered on 12/20/16 08:05; Start 12/17/16 at 09:00 Trazodone HCl (Desyrel) 50 mg PRN QHS PRN PO INSOMNIA, MAY REPEAT X1 Last administered on 12/19/16 21:41; Start 12/17/16 at 18:15 Active Scripts Active Reported Sulfacetamide-Sulfur 10-5% Crm (Sulfacetamide Sodium/Sulfur) 57 Gm Cream..g. 1 Tiffanie TP PRN DAILY PRN Metronidazole 60 Gm Gel..gram. 1 Tiffanie TP PRN TWICE WEEKLY Dulcolax (Bisacodyl) 10 Mg Supp.rect 10 Mg RC PRN DAILY PRN Miralax (Polyethylene Glycol 3350) 119 Gm Powder 17 Gm PO PRN DAILY PRN Zofran (Ondansetron Hcl) 4 Mg Tablet 4 Mg PO PRN Q8HRS PRN Milk Of Magnesia (Magnesium Hydroxide) 400 Mg/5 Ml Oral.susp 2,400 Mg PO PRN DAILY PRN Biofreeze (Menthol) 118 Ml Gel..ml. 1 Tiffanie TP PRN TID PRN Xanax (Alprazolam) 0.25 Mg Tablet 0.25 Mg PO PRN Q4HRS PRN Claritin (Loratadine) 10 Mg Tablet 10 Mg PO PRN DAILY PRN Maglox Liquid (Mag Hydrox/Al Hydrox/Simeth) 360 Ml Oral.susp 30 Ml PO PRN TID PRN Tylenol (Acetaminophen) 325 Mg Tablet 60 Mg PO PRN Q6HRS PRN Senna S Tablet (Sennosides/Docusate Sodium) 1 Each Tablet 1 Tab PO DAILY Xanax (Alprazolam) 0.5 Mg Tablet 0.5 Mg PO DAILY Tramadol Hcl (Tramadol HCl) 50 Mg Tablet 50 Mg PO TID Seroquel (Quetiapine Fumarate) 50 Mg Tablet 50 Mg PO TID Depakote Sprinkle (Divalproex Sodium) 125 Mg Cap.sprink 250 Mg PO DAILY@1200 Remeron (Mirtazapine) 30 Mg Tablet 30 Mg PO QHS Depakote Sprinkle (Divalproex Sodium) 125 Mg Cap.sprink 500 Mg PO BID Wellbutrin Sr (Bupropion Hcl) 150 Mg Tablet.er 150 Mg PO BID Aricept (Donepezil Hcl) 10 Mg Tablet 20 Mg PO DAILY Aspirin Ec (Aspirin) 81 Mg Tablet.dr 81 Mg PO DAILY Diagnosis: Problems: (1) Anxiety disorder (2) Dementia in Alzheimer's disease with delusions (3) Dementia in Alzheimer's disease with depression (4) Dementia, vascular, with delusions (5) Dementia, vascular, with depression (6) Impulse control disorder TATIANNA MYLES MD Dec 20, 2016 19:50
--- NOTE | 2016-12-21 05:34 | PN ---
DATE: 12/19/2016 PSYCHIATRIC PROGRESS NOTE This late entry 12/19/2016 covers elements not covered in initial order of 12/19/2016. I met with the patient in the evening of 12/19/2016. Overall, the patient has had a better day, remains confused, took a nap in the afternoon, which seems to help him. REVIEW OF SYSTEMS: Ambulation impaired, in Broda chair. No CV, , pulmonary, eye, ENT system symptoms on review. Reliability poor. MENTAL STATUS EXAM: Oriented to himself. Insight, judgment, recent and remote memory, attention, concentration, fund of knowledge poor, consistent with his diagnosis mentioned in my initial note. PLAN: Continue current psychotropics, which were adjusted recently. Reviewed drug interactions risk/benefit ratio favors no further change for now. MAN Juanita MYLES MD DR: TONO/ugo JOB#: [id number] / [id number]
[2016-12-21 06:01] VITALS: BP 123/78
[2016-12-21] MEDS: ASPIRIN ENTERIC COATED 81 MG TABLET.DR. PO SCH (08:15)
[2016-12-21] MEDS: SENNOSIDES/DOCUSATE 8.6/50MG TABLET. PO SCH (08:15)
[2016-12-21] MEDS: QUEtiapine 50 MG TABLET. PO SCH ×3 (08:16→13:52)
[2016-12-21] MEDS: DIVALPROEX 125 MG CAP.SPRINK PO SCH ×3 (08:16→20:37)
[2016-12-21] MEDS: SERTRALINE 50 MG TABLET. PO SCH (08:16)
[2016-12-21] MEDS: CARBIDOPA/LEVODOPA 25/100MG TABLET PO SCH ×3 (08:16→20:36)
[2016-12-21] MEDS: MAGNESIUM OXIDE 400 MG TABLET PO SCH ×2 (08:16→15:20)
[2016-12-21] MEDS: POLYETHYLENE GLYCOL 3350 17 GM PACKET. PO SCH ×2 (08:17→08:25)
[2016-12-21] MEDS: ALPRAZolam 0.5 MG TABLET PO SCH (08:22)
[2016-12-21] MEDS: busPIRone 5 MG TABLET. PO SCH ×3 (08:23→13:52)
[2016-12-21] MEDS: traMADol 50 MG TABLET PO SCH ×3 (08:23→20:35)
[2016-12-21] MEDS: CHOLECALCIFEROL (VITAMIN D3) 50,000 UNIT CAPSULE PO SCH (08:23)
[2016-12-21 15:49] VITALS: BP 92/58
[2016-12-21] MEDS: ENOXAPARIN 40 MG/0.4 ML DISP.SYRIN. SQ SCH (20:35)
[2016-12-21] MEDS: MIRTAZAPINE 30 MG TABLET PO SCH (20:36)
--- NOTE | 2016-12-22 04:50 | PN ---
DATE: 12/20/2016 This is a late entry for 12/20/2016 and covers the elements not covered in my initial note of 12/20/2016. SUBJECTIVE: I met with the patient in the evening of 12/20/2016. The patient remains anxious, restless, trying to stand up on his Broda chair, slept 4-3/4 hours the previous evening, had a nap after lunch, compliant with medication, confused. REVIEW OF SYSTEMS: No CV, , pulmonary, eye system symptoms on review. Reliability poor. Gait unsteady, in Broda chair. MENTAL STATUS EXAM: Oriented to himself. Insight, judgment, recent and remote memory, attention, concentration, fund of knowledge poor, consistent with his diagnosis mentioned in my initial note. PLAN: Continue current psychotropics mentioned in my initial note. Valproic acid level is 62; starting 12/21/2016, we will increase the Zoloft from 50 mg a day to 75 mg a day. Adjust further as clinically indicated. Reviewed drug interactions. Risk/benefit ratio favors no further change. MAN Juanita MYLES MD DR: TONO/ugo JOB#: [id number] / [id number]
[2016-12-22 05:44] VITALS: BP 112/76
[2016-12-22] MEDS: SENNOSIDES/DOCUSATE 8.6/50MG TABLET. PO SCH (08:23)
[2016-12-22] MEDS: POLYETHYLENE GLYCOL 3350 17 GM PACKET. PO SCH (08:24)
[2016-12-22] MEDS: DIVALPROEX 125 MG CAP.SPRINK PO SCH ×3 (08:24→20:11)
[2016-12-22] MEDS: MAGNESIUM OXIDE 400 MG TABLET PO SCH ×2 (08:24→15:28)
[2016-12-22] MEDS: ASPIRIN ENTERIC COATED 81 MG TABLET.DR. PO SCH (08:24)
[2016-12-22] MEDS: CARBIDOPA/LEVODOPA 25/100MG TABLET PO SCH ×3 (08:24→20:08)
[2016-12-22] MEDS: QUEtiapine 50 MG TABLET. PO SCH ×3 (08:24→14:17)
[2016-12-22] MEDS: busPIRone 5 MG TABLET. PO SCH ×3 (08:24→14:17)
[2016-12-22] MEDS: traMADol 50 MG TABLET PO SCH ×3 (08:29→20:08)
[2016-12-22] MEDS: ALPRAZolam 0.5 MG TABLET PO SCH (08:29)
[2016-12-22] MEDS: SERTRALINE 25 MG TABLET. PO SCH (08:30)
[2016-12-22] MEDS: ALPRAZolam 0.25 MG TABLET PO PRN (15:28)
[2016-12-22 16:49] VITALS: BP 110/78
[2016-12-22] MEDS: ENOXAPARIN 40 MG/0.4 ML DISP.SYRIN. SQ SCH (20:07)
[2016-12-22] MEDS: MIRTAZAPINE 30 MG TABLET PO SCH (20:08)
--- NOTE | 2016-12-22 21:14 | PDOC ---
Exam Gerardo Demential Exam: Gerardo Note: Please also refer to the separate dictated note~for this date of service dictated separately.~Patient seen individually. Discussed the patient with Nursing staff reviewed the chart.~Reviewed interim history and current functioning. Reviewed vital signs,~Labs/ Radiology~and current medications noted below. Continue current treatment with the changes noted in the dictated addendum note Assessment: Vital Signs: Vital Signs Date Time Temp Pulse Resp B/P (MAP) Pulse Ox O2 Delivery O2 Flow Rate FiO2 12/22/16 20:08 18 Room Air 12/22/16 16:49 97.7 68 110/78 (89) 98 I&O Intake and Output 12/23/16 07:00 Intake Total 840 ml Balance 840 ml Intake Oral 840 ml # Bowel Movements 1 Current Medications: Meds: Current Medications Alprazolam (Xanax) 0.25 mg PRN Q4HRS PRN PO ANXIETY / AGITATION Last administered on 12/22/16 15:28; Start 12/10/16 at 20:15 Alprazolam (Xanax) 0.5 mg DAILY PO Last administered on 12/22/16 08:29; Start 12/11/16 at 09:00 Bupropion HCl (Wellbutrin Sr) 150 mg BID PO Last administered on 12/11/16 07:45 ; Start 12/10/16 at 21:00; Stop 12/11/16 at 18:54; Status DC Divalproex Sodium (Depakote Sprinkles) 500 mg BID PO Last administered on 20:11; Start 12/10/16 at 21:00 Donepezil HCl (Aricept) 20 mg DAILY PO Last administered on 12/12/16 07:18; Start 12/11/16 at 09:00; Stop 12/12/16 at 18:35; Status DC Mirtazapine (Remeron) 30 mg QHS PO Last administered on 12/22/16 20:08; Start 12/10/16 at 21:00 Quetiapine Fumarate (SEROquel) 50 mg TID PO Last administered on 12/16/16 07: 47; Start 12/10/16 at 21:00; Stop 12/16/16 at 11:04; Status DC Divalproex Sodium (Depakote Sprinkles) 250 mg DAILY@1200 PO Last administered on 12/22/16 11:42; Start 12/11/16 at 12:00 Acetaminophen (Tylenol) 60 mg PRN Q6HRS PRN PO PAIN / TEMP; Start 12/10/16 at 21 :45; Stop 12/12/16 at 12:05; Status DC Aspirin (Aspirin Enteric Coated) 81 mg DAILY PO Last administered on 12/22/16 08:24; Start 12/11/16 at 09:00 Bisacodyl (Dulcolax Supp) 10 mg PRN DAILY PRN RC CONSTIPATION Last administered on 12/19/16 22:52; Start 12/10/16 at 21:45 Magnesium Hydroxide (Milk Of Magnesia) 2,400 mg PRN DAILY PRN PO CONSTIPATION Last administered on 12/14/16 19:15; Start 12/10/16 at 21:45 Polyethylene Glycol (miraLAX) 17 gm PRN DAILY PRN PO CONSTIPATION Last administered on 12/20/16 08:07; Start 12/11/16 at 09:00; Stop 12/21/16 at 07:56 ; Status DC Senna/Docusate Sodium (Senna Plus) 1 tab DAILY PO Last administered on 08:23; Start 12/11/16 at 09:00 Tramadol HCl (Ultram) 50 mg TID PO Last administered on 12/22/16 20:08; Start 12/10/16 at 22:30 Metronidazole (Nydamax) 1 tiffanie PRN Q72HRS PRN TP APPLY TWICE WEEKLY NEEDED Last administered on 12/12/16 07:18; Start 12/10/16 at 22:15 Ondansetron HCl (Zofran Odt) 4 mg PRN Q8HRS PRN PO NAUSEA; Start 12/10/16 at 22: 15 Enoxaparin Sodium (Lovenox) 40 mg QHS SQ Last administered on 12/22/16 20:07; Start 12/10/16 at 22:30 Magnesium Oxide (Magnesium Oxide) 400 mg BID94 PO Last administered on 15:28; Start 12/11/16 at 16:00 Olanzapine (ZyPREXA ZYDIS) 2.5 mg PRN Q2HR PRN PO PSYCHOSIS Last administered on 12/19/16 22:28; Start 12/11/16 at 17:15 Citalopram Hydrobromide (CeleXA) 10 mg DAILY PO Last administered on 12/13/16 09:40; Start 12/12/16 at 09:00; Stop 12/13/16 at 18:43; Status DC Acetaminophen (Tylenol) 650 mg PRN Q6HRS PRN PO PAIN / TEMP Last administered on 12/14/16 19:39; Start 12/12/16 at 12:15 Carbidopa/Levodopa (Sinemet 25/100) 1 tab TID PO Last administered on 20:08; Start 12/12/16 at 21:00 Vitamin D (Vitamin D3) 50,000 unit WEEKLY PO Last administered on 12/21/16 08: 23; Start 12/14/16 at 09:00 Buspirone HCl (Buspar) 5 mg BID@0900,1300 PO Last administered on 12/16/16 07: 47; Start 12/14/16 at 09:00; Stop 12/16/16 at 12:00; Status DC Sertraline HCl (Zoloft) 50 mg DAILY PO Last administered on 12/16/16 07:47; Start 12/14/16 at 09:00; Stop 12/16/16 at 11:44; Status DC Magnesium Citrate (Citroma) 296 ml PRN 1X PRN PO CONSTIPATION; Start 12/14/16 at 17:30 Buspirone HCl (Buspar) 5 mg BID@0800,1200,1500 PO Last administered on 14:17; Start 12/16/16 at 12:00 Quetiapine Fumarate (SEROquel) 50 mg TID@0800,1200,1500 PO Last administered on 12/22/16 14:17; Start 12/16/16 at 12:00 Sertraline HCl (Zoloft) 50 mg DAILY PO Last administered on 12/21/16 08:16; Start 12/17/16 at 09:00; Stop 12/21/16 at 12:59; Status DC Trazodone HCl (Desyrel) 50 mg PRN QHS PRN PO INSOMNIA, MAY REPEAT X1 Last administered on 12/19/16 21:41; Start 12/17/16 at 18:15 Polyethylene Glycol (miraLAX) 17 gm DAILY PO Last administered on 12/22/16 08: 24; Start 12/21/16 at 08:10 Sertraline HCl (Zoloft) 75 mg DAILY PO Last administered on 12/22/16 08:30; Start 12/22/16 at 09:00 Active Scripts Active Reported Sulfacetamide-Sulfur 10-5% Crm (Sulfacetamide Sodium/Sulfur) 57 Gm Cream..g. 1 Tiffanie TP PRN DAILY PRN Metronidazole 60 Gm Gel..gram. 1 Tiffanie TP PRN TWICE WEEKLY Dulcolax (Bisacodyl) 10 Mg Supp.rect 10 Mg RC PRN DAILY PRN Miralax (Polyethylene Glycol 3350) 119 Gm Powder 17 Gm PO PRN DAILY PRN Zofran (Ondansetron Hcl) 4 Mg Tablet 4 Mg PO PRN Q8HRS PRN Milk Of Magnesia (Magnesium Hydroxide) 400 Mg/5 Ml Oral.susp 2,400 Mg PO PRN DAILY PRN Biofreeze (Menthol) 118 Ml Gel..ml. 1 Tiffanie TP PRN TID PRN Xanax (Alprazolam) 0.25 Mg Tablet 0.25 Mg PO PRN Q4HRS PRN Claritin (Loratadine) 10 Mg Tablet 10 Mg PO PRN DAILY PRN Maglox Liquid (Mag Hydrox/Al Hydrox/Simeth) 360 Ml Oral.susp 30 Ml PO PRN TID PRN Tylenol (Acetaminophen) 325 Mg Tablet 60 Mg PO PRN Q6HRS PRN Senna S Tablet (Sennosides/Docusate Sodium) 1 Each Tablet 1 Tab PO DAILY Xanax (Alprazolam) 0.5 Mg Tablet 0.5 Mg PO DAILY Tramadol Hcl (Tramadol HCl) 50 Mg Tablet 50 Mg PO TID Seroquel (Quetiapine Fumarate) 50 Mg Tablet 50 Mg PO TID Depakote Sprinkle (Divalproex Sodium) 125 Mg Cap.sprink 250 Mg PO DAILY@1200 Remeron (Mirtazapine) 30 Mg Tablet 30 Mg PO QHS Depakote Sprinkle (Divalproex Sodium) 125 Mg Cap.sprink 500 Mg PO BID Wellbutrin Sr (Bupropion Hcl) 150 Mg Tablet.er 150 Mg PO BID Aricept (Donepezil Hcl) 10 Mg Tablet 20 Mg PO DAILY Aspirin Ec (Aspirin) 81 Mg Tablet.dr 81 Mg PO DAILY Diagnosis: Problems: (1) Anxiety disorder (2) Dementia in Alzheimer's disease with delusions (3) Dementia in Alzheimer's disease with depression (4) Dementia, vascular, with delusions (5) Dementia, vascular, with depression (6) Impulse control disorder TATIANNA MYLES MD Dec 22, 2016 21:14
--- NOTE | 2016-12-23 05:01 | PN ---
DATE: 12/21/2016 This late entry for 12/21/2016 covers elements not covered in my initial note of 12/21/2016. SUBJECTIVE: I met with the patient the evening of 12/21/2016. The patient slept 6-1/2 hours previous evening, remains disorganized, but pleasant, trying to get out of his chair around dinnertime, restless, anxious, but rest of the day he has done better. Zoloft was increased to 75 mg a day on 12/21/2016 for his mood and anxiety symptoms. REVIEW OF SYSTEMS: Ambulation impaired, in Broda chair. No CV, , pulmonary, eye, ENT system symptoms. On review, reliability poor. MENTAL STATUS EXAMINATION: Oriented to himself. Insight, judgment, recent and remote memory, attention, concentration, fund of knowledge poor, consistent with his diagnosis mentioned in my initial note. LABORATORY DATA: Reviewed. PLAN: Zoloft was increased. Maintain the rest of the psychotropics unchanged as noted in my initial note. Valproic acid level is therapeutic at 62. Reviewed drug interactions, risk/benefit ratio favors no further change at this time. MAN Juanita MYLES MD DR: TONO/ugo JOB#: [id number] / [id number]
[2016-12-23 05:57] VITALS: BP 99/60
[2016-12-23] MEDS: DIVALPROEX 125 MG CAP.SPRINK PO SCH ×3 (07:42→20:59)
[2016-12-23] MEDS: POLYETHYLENE GLYCOL 3350 17 GM PACKET. PO SCH (07:42)
[2016-12-23] MEDS: CARBIDOPA/LEVODOPA 25/100MG TABLET PO SCH ×3 (07:42→21:02)
[2016-12-23] MEDS: busPIRone 5 MG TABLET. PO SCH ×3 (07:42→14:08)
[2016-12-23] MEDS: MAGNESIUM OXIDE 400 MG TABLET PO SCH ×2 (07:43→14:08)
[2016-12-23] MEDS: QUEtiapine 50 MG TABLET. PO SCH ×3 (07:43→14:08)
[2016-12-23] MEDS: SERTRALINE 25 MG TABLET. PO SCH (07:43)
[2016-12-23] MEDS: SENNOSIDES/DOCUSATE 8.6/50MG TABLET. PO SCH (07:43)
[2016-12-23] MEDS: ASPIRIN ENTERIC COATED 81 MG TABLET.DR. PO SCH (07:43)
[2016-12-23] MEDS: ALPRAZolam 0.5 MG TABLET PO SCH (07:44)
[2016-12-23] MEDS: traMADol 50 MG TABLET PO SCH ×3 (07:44→21:02)
[2016-12-23 16:27] VITALS: BP 98/61
[2016-12-23] MEDS: MIRTAZAPINE 30 MG TABLET PO SCH (20:59)
[2016-12-23] MEDS: ENOXAPARIN 40 MG/0.4 ML DISP.SYRIN. SQ SCH (20:59)
--- NOTE | 2016-12-23 21:10 | PDOC ---
Exam Gerardo Demential Exam: Gerardo Note: Please also refer to the separate dictated note~for this date of service dictated separately.~Patient seen individually. Discussed the patient with Nursing staff reviewed the chart.~Reviewed interim history and current functioning. Reviewed vital signs,~Labs/ Radiology~and current medications noted below. Continue current treatment with the changes noted in the dictated addendum note Assessment: Vital Signs: Vital Signs Date Time Temp Pulse Resp B/P (MAP) Pulse Ox O2 Delivery O2 Flow Rate FiO2 12/23/16 21:02 16 12/23/16 16:27 97.8 79 98/61 (73) 97 12/22/16 21:50 Room Air I&O Intake and Output 12/24/16 07:00 Intake Total 1140 ml Balance 1140 ml Intake Oral 1140 ml Current Medications: Meds: Current Medications Alprazolam (Xanax) 0.25 mg PRN Q4HRS PRN PO ANXIETY / AGITATION Last administered on 12/22/16 15:28; Start 12/10/16 at 20:15 Alprazolam (Xanax) 0.5 mg DAILY PO Last administered on 12/23/16 07:44; Start 12/11/16 at 09:00 Bupropion HCl (Wellbutrin Sr) 150 mg BID PO Last administered on 12/11/16 07:45 ; Start 12/10/16 at 21:00; Stop 12/11/16 at 18:54; Status DC Divalproex Sodium (Depakote Sprinkles) 500 mg BID PO Last administered on 20:59; Start 12/10/16 at 21:00 Donepezil HCl (Aricept) 20 mg DAILY PO Last administered on 12/12/16 07:18; Start 12/11/16 at 09:00; Stop 12/12/16 at 18:35; Status DC Mirtazapine (Remeron) 30 mg QHS PO Last administered on 12/23/16 20:59; Start 12/10/16 at 21:00 Quetiapine Fumarate (SEROquel) 50 mg TID PO Last administered on 12/16/16 07: 47; Start 12/10/16 at 21:00; Stop 12/16/16 at 11:04; Status DC Divalproex Sodium (Depakote Sprinkles) 250 mg DAILY@1200 PO Last administered on 12/23/16 11:36; Start 12/11/16 at 12:00 Acetaminophen (Tylenol) 60 mg PRN Q6HRS PRN PO PAIN / TEMP; Start 12/10/16 at 21 :45; Stop 12/12/16 at 12:05; Status DC Aspirin (Aspirin Enteric Coated) 81 mg DAILY PO Last administered on 12/23/16 07:43; Start 12/11/16 at 09:00 Bisacodyl (Dulcolax Supp) 10 mg PRN DAILY PRN RC CONSTIPATION Last administered on 12/19/16 22:52; Start 12/10/16 at 21:45 Magnesium Hydroxide (Milk Of Magnesia) 2,400 mg PRN DAILY PRN PO CONSTIPATION Last administered on 12/14/16 19:15; Start 12/10/16 at 21:45 Polyethylene Glycol (miraLAX) 17 gm PRN DAILY PRN PO CONSTIPATION Last administered on 12/20/16 08:07; Start 12/11/16 at 09:00; Stop 12/21/16 at 07:56 ; Status DC Senna/Docusate Sodium (Senna Plus) 1 tab DAILY PO Last administered on 07:43; Start 12/11/16 at 09:00 Tramadol HCl (Ultram) 50 mg TID PO Last administered on 12/23/16 21:02; Start 12/10/16 at 22:30 Metronidazole (Nydamax) 1 tiffanie PRN Q72HRS PRN TP APPLY TWICE WEEKLY NEEDED Last administered on 12/12/16 07:18; Start 12/10/16 at 22:15 Ondansetron HCl (Zofran Odt) 4 mg PRN Q8HRS PRN PO NAUSEA; Start 12/10/16 at 22: 15 Enoxaparin Sodium (Lovenox) 40 mg QHS SQ Last administered on 12/23/16 20:59; Start 12/10/16 at 22:30 Magnesium Oxide (Magnesium Oxide) 400 mg BID94 PO Last administered on 14:08; Start 12/11/16 at 16:00 Olanzapine (ZyPREXA ZYDIS) 2.5 mg PRN Q2HR PRN PO PSYCHOSIS Last administered on 12/19/16 22:28; Start 12/11/16 at 17:15 Citalopram Hydrobromide (CeleXA) 10 mg DAILY PO Last administered on 12/13/16 09:40; Start 12/12/16 at 09:00; Stop 12/13/16 at 18:43; Status DC Acetaminophen (Tylenol) 650 mg PRN Q6HRS PRN PO PAIN / TEMP Last administered on 12/14/16 19:39; Start 12/12/16 at 12:15 Carbidopa/Levodopa (Sinemet 25/100) 1 tab TID PO Last administered on 21:02; Start 12/12/16 at 21:00 Vitamin D (Vitamin D3) 50,000 unit WEEKLY PO Last administered on 12/21/16 08: 23; Start 12/14/16 at 09:00 Buspirone HCl (Buspar) 5 mg BID@0900,1300 PO Last administered on 12/16/16 07: 47; Start 12/14/16 at 09:00; Stop 12/16/16 at 12:00; Status DC Sertraline HCl (Zoloft) 50 mg DAILY PO Last administered on 12/16/16 07:47; Start 12/14/16 at 09:00; Stop 12/16/16 at 11:44; Status DC Magnesium Citrate (Citroma) 296 ml PRN 1X PRN PO CONSTIPATION; Start 12/14/16 at 17:30 Buspirone HCl (Buspar) 5 mg BID@0800,1200,1500 PO Last administered on 14:08; Start 12/16/16 at 12:00 Quetiapine Fumarate (SEROquel) 50 mg TID@0800,1200,1500 PO Last administered on 12/23/16 14:08; Start 12/16/16 at 12:00 Sertraline HCl (Zoloft) 50 mg DAILY PO Last administered on 12/21/16 08:16; Start 12/17/16 at 09:00; Stop 12/21/16 at 12:59; Status DC Trazodone HCl (Desyrel) 50 mg PRN QHS PRN PO INSOMNIA, MAY REPEAT X1 Last administered on 12/19/16 21:41; Start 12/17/16 at 18:15 Polyethylene Glycol (miraLAX) 17 gm DAILY PO Last administered on 12/23/16 07: 42; Start 12/21/16 at 08:10 Sertraline HCl (Zoloft) 75 mg DAILY PO Last administered on 12/23/16 07:43; Start 12/22/16 at 09:00 Active Scripts Active Reported Sulfacetamide-Sulfur 10-5% Crm (Sulfacetamide Sodium/Sulfur) 57 Gm Cream..g. 1 Tiffanie TP PRN DAILY PRN Metronidazole 60 Gm Gel..gram. 1 Tiffanie TP PRN TWICE WEEKLY Dulcolax (Bisacodyl) 10 Mg Supp.rect 10 Mg RC PRN DAILY PRN Miralax (Polyethylene Glycol 3350) 119 Gm Powder 17 Gm PO PRN DAILY PRN Zofran (Ondansetron Hcl) 4 Mg Tablet 4 Mg PO PRN Q8HRS PRN Milk Of Magnesia (Magnesium Hydroxide) 400 Mg/5 Ml Oral.susp 2,400 Mg PO PRN DAILY PRN Biofreeze (Menthol) 118 Ml Gel..ml. 1 Tiffanie TP PRN TID PRN Xanax (Alprazolam) 0.25 Mg Tablet 0.25 Mg PO PRN Q4HRS PRN Claritin (Loratadine) 10 Mg Tablet 10 Mg PO PRN DAILY PRN Maglox Liquid (Mag Hydrox/Al Hydrox/Simeth) 360 Ml Oral.susp 30 Ml PO PRN TID PRN Tylenol (Acetaminophen) 325 Mg Tablet 60 Mg PO PRN Q6HRS PRN Senna S Tablet (Sennosides/Docusate Sodium) 1 Each Tablet 1 Tab PO DAILY Xanax (Alprazolam) 0.5 Mg Tablet 0.5 Mg PO DAILY Tramadol Hcl (Tramadol HCl) 50 Mg Tablet 50 Mg PO TID Seroquel (Quetiapine Fumarate) 50 Mg Tablet 50 Mg PO TID Depakote Sprinkle (Divalproex Sodium) 125 Mg Cap.sprink 250 Mg PO DAILY@1200 Remeron (Mirtazapine) 30 Mg Tablet 30 Mg PO QHS Depakote Sprinkle (Divalproex Sodium) 125 Mg Cap.sprink 500 Mg PO BID Wellbutrin Sr (Bupropion Hcl) 150 Mg Tablet.er 150 Mg PO BID Aricept (Donepezil Hcl) 10 Mg Tablet 20 Mg PO DAILY Aspirin Ec (Aspirin) 81 Mg Tablet. 81 Mg PO DAILY Diagnosis: Problems: (1) Anxiety disorder (2) Dementia in Alzheimer's disease with delusions (3) Dementia in Alzheimer's disease with depression (4) Dementia, vascular, with delusions (5) Dementia, vascular, with depression (6) Impulse control disorder TATIANNA MYLES MD Dec 23, 2016 21:10
--- NOTE | 2016-12-24 01:43 | PN ---
DATE: 12/22/2016 This is a late entry for date of service 12/22/2016 and covers elements not covered in my initial note of 12/22/216. I met with the patient evening of 12/22/2016. The patient was up in the middle of the night, standing in his room, anxious, somewhat disorganized. He did better during the day, 12/22/2016 until about 1535 hours and then was agitated, using profanities, trashed the nursing staff to "f---" out of here. He received Xanax which seemed to help. REVIEW OF SYSTEMS: Ambulation impaired, in a wheelchair. No CV, , pulmonary, eye, ENT system symptoms on review. Reliability poor. MENTAL STATUS EXAM: Oriented to himself. Insight, judgment, recent and remote memory, attention, concentration, fund of knowledge poor, consistent with his diagnosis as mentioned in my initial note. PLAN: Continue current psychotropics as mentioned in my initial note. Reviewed drug interactions, risk/benefit ratio favors no further change at this time. MAN Juanita MYLES MD DR: TONO/ugo JOB#: [id number] / [id number]
[2016-12-24 06:03] VITALS: BP 114/70
[2016-12-24 07:53] LABS: BASO % 1 % (0-3); EOS # 0.1 x10^3/uL (0.0-0.7); EOS % 3 % (0-3); HEMATOCRIT 37.2 % (39.0-53.0); HEMOGLOBIN 12.5 g/dL (13.0-17.5); LYMPH # 1.7 x10^3/uL (1.0-4.8); LYMPH % 40 % (24-48); MEAN CORPUSCULAR HEMOGLOBIN 31 pg (25-35); MEAN CORPUSCULAR HGB CONC 34 g/dL (31-37); MEAN CORPUSCULAR VOLUME 93 fL (79-100); MONO # 0.6 x10^3/uL (0.0-1.1); MONO % 15 % (0-9); NEUT # 1.7 x10^3uL (1.8-7.7); NEUT % 41 % (31-73); PLATELET COUNT 172 x10^3/uL (140-400); RED CELL DISTRIBUTION WIDTH 14.9 % (11.5-14.5); WHITE BLOOD COUNT 4.2 x10^3/uL (4.0-11.0)
[2016-12-24 08:00] LABS: ALBUMIN 2.8 g/dL (3.4-5.0); ALBUMIN/GLOBULIN RATIO 0.9 (1.0-1.7); ALK PHOS 54 U/L (46-116); ALT (SGPT) 14 U/L (16-63); ANION GAP 3 (6-14); AST (SGOT) 23 U/L (15-37); BLOOD UREA NITROGEN 18 mg/dL (8-26); BUN/CREATININE RATIO 16 (6-20); CALCIUM 8.7 mg/dL (8.5-10.1); CARBON DIOXIDE 32 mmol/L (21-32); CHLORIDE 107 mmol/L (98-107); CREATININE 1.1 mg/dL (0.7-1.3); GFR 65.4; GLUCOSE 87 mg/dL (70-99); MAGNESIUM 1.7 mg/dL (1.8-2.4); SODIUM 142 mmol/L (136-145); TOTAL BILIRUBIN 0.4 mg/dL (0.2-1.0)
[2016-12-24 08:01] LABS: VAL ACID 49 mcg/mL (50-100)
[2016-12-24] MEDS: metroNIDAZOLE 0.75% TOPICAL 1 APP TUBE TP PRN (08:13)
[2016-12-24] MEDS: SENNOSIDES/DOCUSATE 8.6/50MG TABLET. PO SCH (08:14)
[2016-12-24] MEDS: CARBIDOPA/LEVODOPA 25/100MG TABLET PO SCH ×3 (08:14→19:19)
[2016-12-24] MEDS: traMADol 50 MG TABLET PO SCH ×3 (08:14→13:36)
[2016-12-24] MEDS: busPIRone 5 MG TABLET. PO SCH ×4 (08:14→18:07)
[2016-12-24] MEDS: MAGNESIUM OXIDE 400 MG TABLET PO SCH ×4 (08:14→18:09)
[2016-12-24] MEDS: ASPIRIN ENTERIC COATED 81 MG TABLET.DR. PO SCH (08:14)
[2016-12-24] MEDS: DIVALPROEX 125 MG CAP.SPRINK PO SCH ×3 (08:14→19:19)
[2016-12-24] MEDS: POLYETHYLENE GLYCOL 3350 17 GM PACKET. PO SCH (08:14)
[2016-12-24] MEDS: ALPRAZolam 0.5 MG TABLET PO SCH (08:14)
[2016-12-24] MEDS: QUEtiapine 50 MG TABLET. PO SCH ×4 (08:14→18:07)
[2016-12-24] MEDS: SERTRALINE 25 MG TABLET. PO SCH (08:15)
[2016-12-24 16:13] VITALS: BP 107/67
[2016-12-24] MEDS: MIRTAZAPINE 30 MG TABLET PO SCH (19:19)
[2016-12-24] MEDS: ENOXAPARIN 40 MG/0.4 ML DISP.SYRIN. SQ SCH (19:20)
--- NOTE | 2016-12-24 21:02 | PDOC ---
Exam Gerardo Demential Exam: Gerardo Note: Please also refer to the separate dictated note~for this date of service dictated separately.~Patient seen individually. Discussed the patient with Nursing staff reviewed the chart.~Reviewed interim history and current functioning. Reviewed vital signs,~Labs/ Radiology~and current medications noted below. Continue current treatment with the changes noted in the dictated addendum note Assessment: Vital Signs: Vital Signs Date Time Temp Pulse Resp B/P (MAP) Pulse Ox O2 Delivery O2 Flow Rate FiO2 12/24/16 16:13 97.7 69 18 107/67 (80) 95 12/23/16 22:02 Room Air I&O Intake and Output 12/25/16 06:59 Intake Total 1200 ml Balance 1200 ml Intake Oral 1200 ml # Bowel Movements 1 Labs: Laboratory Tests Test 12/24/16 07:36 White Blood Count 4.2 x10^3/uL (4.0-11.0) Red Blood Count 4.00 x10^6/uL (4.30-5.70) L Hemoglobin 12.5 g/dL (13.0-17.5) L Hematocrit 37.2 % (39.0-53.0) L Mean Corpuscular Volume 93 fL (79-100) Mean Corpuscular Hemoglobin 31 pg (25-35) Mean Corpuscular Hemoglobin Concent 34 g/dL (31-37) Red Cell Distribution Width 14.9 % (11.5-14.5) H Platelet Count 172 x10^3/uL (140-400) Neutrophils (%) (Auto) 41 % (31-73) Lymphocytes (%) (Auto) 40 % (24-48) Monocytes (%) (Auto) 15 % (0-9) H Eosinophils (%) (Auto) 3 % (0-3) Basophils (%) (Auto) 1 % (0-3) Neutrophils # (Auto) 1.7 x10^3uL (1.8-7.7) L Lymphocytes # (Auto) 1.7 x10^3/uL (1.0-4.8) Monocytes # (Auto) 0.6 x10^3/uL (0.0-1.1) Eosinophils # (Auto) 0.1 x10^3/uL (0.0-0.7) Basophils # (Auto) 0.0 x10^3/uL (0.0-0.2) Sodium Level 142 mmol/L (136-145) Potassium Level 4.0 mmol/L (3.5-5.1) Chloride Level 107 mmol/L (98-107) Carbon Dioxide Level 32 mmol/L (21-32) Anion Gap 3 (6-14) L Blood Urea Nitrogen 18 mg/dL (8-26) Creatinine 1.1 mg/dL (0.7-1.3) Estimated GFR (Cockcroft-Gault) 65.4 BUN/Creatinine Ratio 16 (6-20) Glucose Level 87 mg/dL (70-99) Calcium Level 8.7 mg/dL (8.5-10.1) Magnesium Level 1.7 mg/dL (1.8-2.4) L Total Bilirubin 0.4 mg/dL (0.2-1.0) Aspartate Amino Transferase (AST) 23 U/L (15-37) Alanine Aminotransferase (ALT) 14 U/L (16-63) L Alkaline Phosphatase 54 U/L (46-116) Total Protein 6.0 g/dL (6.4-8.2) L Albumin 2.8 g/dL (3.4-5.0) L Albumin/Globulin Ratio 0.9 (1.0-1.7) L Valproic Acid Level 49 mcg/mL (50-100) L Valproic Acid Last Dose Date 12/23/2016 Valproic Acid Last Dose Time 2100 Current Medications: Meds: Current Medications Alprazolam (Xanax) 0.25 mg PRN Q4HRS PRN PO ANXIETY / AGITATION Last administered on 12/22/16 15:28; Start 12/10/16 at 20:15 Alprazolam (Xanax) 0.5 mg DAILY PO Last administered on 12/24/16 08:14; Start 12/11/16 at 09:00 Bupropion HCl (Wellbutrin Sr) 150 mg BID PO Last administered on 12/11/16 07:45 ; Start 12/10/16 at 21:00; Stop 12/11/16 at 18:54; Status DC Divalproex Sodium (Depakote Sprinkles) 500 mg BID PO Last administered on 19:19; Start 12/10/16 at 21:00 Donepezil HCl (Aricept) 20 mg DAILY PO Last administered on 12/12/16 07:18; Start 12/11/16 at 09:00; Stop 12/12/16 at 18:35; Status DC Mirtazapine (Remeron) 30 mg QHS PO Last administered on 12/24/16 19:19; Start 12/10/16 at 21:00 Quetiapine Fumarate (SEROquel) 50 mg TID PO Last administered on 12/16/16 07: 47; Start 12/10/16 at 21:00; Stop 12/16/16 at 11:04; Status DC Divalproex Sodium (Depakote Sprinkles) 250 mg DAILY@1200 PO Last administered on 12/24/16 11:53; Start 12/11/16 at 12:00 Acetaminophen (Tylenol) 60 mg PRN Q6HRS PRN PO PAIN / TEMP; Start 12/10/16 at 21 :45; Stop 12/12/16 at 12:05; Status DC Aspirin (Aspirin Enteric Coated) 81 mg DAILY PO Last administered on 12/24/16 08:14; Start 12/11/16 at 09:00 Bisacodyl (Dulcolax Supp) 10 mg PRN DAILY PRN RC CONSTIPATION Last administered on 12/19/16 22:52; Start 12/10/16 at 21:45 Magnesium Hydroxide (Milk Of Magnesia) 2,400 mg PRN DAILY PRN PO CONSTIPATION Last administered on 12/14/16 19:15; Start 12/10/16 at 21:45 Polyethylene Glycol (miraLAX) 17 gm PRN DAILY PRN PO CONSTIPATION Last administered on 12/20/16 08:07; Start 12/11/16 at 09:00; Stop 12/21/16 at 07:56 ; Status DC Senna/Docusate Sodium (Senna Plus) 1 tab DAILY PO Last administered on 08:14; Start 12/11/16 at 09:00 Tramadol HCl (Ultram) 50 mg TID PO Last administered on 12/24/16 13:36; Start 12/10/16 at 22:30 Metronidazole (Nydamax) 1 tiffanie PRN Q72HRS PRN TP APPLY TWICE WEEKLY NEEDED Last administered on 12/24/16 08:13; Start 12/10/16 at 22:15 Ondansetron HCl (Zofran Odt) 4 mg PRN Q8HRS PRN PO NAUSEA; Start 12/10/16 at 22: 15 Enoxaparin Sodium (Lovenox) 40 mg QHS SQ Last administered on 12/24/16 19:20; Start 12/10/16 at 22:30 Magnesium Oxide (Magnesium Oxide) 400 mg BID94 PO Last administered on 08:14; Start 12/11/16 at 16:00 Olanzapine (ZyPREXA ZYDIS) 2.5 mg PRN Q2HR PRN PO PSYCHOSIS Last administered on 12/24/16 11:54; Start 12/11/16 at 17:15 Citalopram Hydrobromide (CeleXA) 10 mg DAILY PO Last administered on 12/13/16 09:40; Start 12/12/16 at 09:00; Stop 12/13/16 at 18:43; Status DC Acetaminophen (Tylenol) 650 mg PRN Q6HRS PRN PO PAIN / TEMP Last administered on 12/14/16 19:39; Start 12/12/16 at 12:15 Carbidopa/Levodopa (Sinemet 25/100) 1 tab TID PO Last administered on 19:19; Start 12/12/16 at 21:00 Vitamin D (Vitamin D3) 50,000 unit WEEKLY PO Last administered on 12/21/16 08: 23; Start 12/14/16 at 09:00 Buspirone HCl (Buspar) 5 mg BID@0900,1300 PO Last administered on 12/16/16 07: 47; Start 12/14/16 at 09:00; Stop 12/16/16 at 12:00; Status DC Sertraline HCl (Zoloft) 50 mg DAILY PO Last administered on 12/16/16 07:47; Start 12/14/16 at 09:00; Stop 12/16/16 at 11:44; Status DC Magnesium Citrate (Citroma) 296 ml PRN 1X PRN PO CONSTIPATION; Start 12/14/16 at 17:30 Buspirone HCl (Buspar) 5 mg BID@0800,1200,1500 PO Last administered on 18:07; Start 12/16/16 at 12:00 Quetiapine Fumarate (SEROquel) 50 mg TID@0800,1200,1500 PO Last administered on 12/24/16 18:07; Start 12/16/16 at 12:00 Sertraline HCl (Zoloft) 50 mg DAILY PO Last administered on 12/21/16 08:16; Start 12/17/16 at 09:00; Stop 12/21/16 at 12:59; Status DC Trazodone HCl (Desyrel) 50 mg PRN QHS PRN PO INSOMNIA, MAY REPEAT X1 Last administered on 12/19/16 21:41; Start 12/17/16 at 18:15 Polyethylene Glycol (miraLAX) 17 gm DAILY PO Last administered on 12/24/16 08: 14; Start 12/21/16 at 08:10 Sertraline HCl (Zoloft) 75 mg DAILY PO Last administered on 12/24/16 08:15; Start 12/22/16 at 09:00 Active Scripts Active Reported Sulfacetamide-Sulfur 10-5% Crm (Sulfacetamide Sodium/Sulfur) 57 Gm Cream..g. 1 Tiffanie TP PRN DAILY PRN Metronidazole 60 Gm Gel..gram. 1 Tiffanie TP PRN TWICE WEEKLY Dulcolax (Bisacodyl) 10 Mg Supp.rect 10 Mg RC PRN DAILY PRN Miralax (Polyethylene Glycol 3350) 119 Gm Powder 17 Gm PO PRN DAILY PRN Zofran (Ondansetron Hcl) 4 Mg Tablet 4 Mg PO PRN Q8HRS PRN Milk Of Magnesia (Magnesium Hydroxide) 400 Mg/5 Ml Oral.susp 2,400 Mg PO PRN DAILY PRN Biofreeze (Menthol) 118 Ml Gel..ml. 1 Tiffanie TP PRN TID PRN Xanax (Alprazolam) 0.25 Mg Tablet 0.25 Mg PO PRN Q4HRS PRN Claritin (Loratadine) 10 Mg Tablet 10 Mg PO PRN DAILY PRN Maglox Liquid (Mag Hydrox/Al Hydrox/Simeth) 360 Ml Oral.susp 30 Ml PO PRN TID PRN Tylenol (Acetaminophen) 325 Mg Tablet 60 Mg PO PRN Q6HRS PRN Senna S Tablet (Sennosides/Docusate Sodium) 1 Each Tablet 1 Tab PO DAILY Xanax (Alprazolam) 0.5 Mg Tablet 0.5 Mg PO DAILY Tramadol Hcl (Tramadol HCl) 50 Mg Tablet 50 Mg PO TID Seroquel (Quetiapine Fumarate) 50 Mg Tablet 50 Mg PO TID Depakote Sprinkle (Divalproex Sodium) 125 Mg Cap.sprink 250 Mg PO DAILY@1200 Remeron (Mirtazapine) 30 Mg Tablet 30 Mg PO QHS Depakote Sprinkle (Divalproex Sodium) 125 Mg Cap.sprink 500 Mg PO BID Wellbutrin Sr (Bupropion Hcl) 150 Mg Tablet.er 150 Mg PO BID Aricept (Donepezil Hcl) 10 Mg Tablet 20 Mg PO DAILY Aspirin Ec (Aspirin) 81 Mg Tablet.dr 81 Mg PO DAILY Diagnosis: Problems: (1) Anxiety disorder (2) Dementia in Alzheimer's disease with delusions (3) Dementia in Alzheimer's disease with depression (4) Dementia, vascular, with delusions (5) Dementia, vascular, with depression (6) Impulse control disorder TATIANNA MYLES MD Dec 24, 2016 21:02
[2016-12-24] MEDS: traZODone 50 MG TABLET. PO PRN (21:30)
--- NOTE | 2016-12-25 01:18 | PN ---
DATE: 12/23/2016 PSYCHIATRIC PROGRESS NOTE This late entry for 12/23/2016 covers elements not covered in my initial note of 12/23/2016. SUBJECTIVE: At treatment team meeting, I reviewed the patient's history, diagnosis, progress. Appetite 75%, sleeping about 7 hours. He gets overstimulated with noise, gets agitated, but otherwise better. REVIEW OF SYSTEMS: Ambulation impaired, in Broda chair. No CV, , pulmonary, eye, ENT system symptoms on review. Reliability poor. Responses were deduced, rather than directly answer the questions given this confusion. MENTAL STATUS EXAM: Oriented to himself. Insight, judgment, recent and remote memory, attention, concentration, fund of knowledge poor, consistent with his diagnosis mentioned in my initial note. PLAN: Continue current psychotropics. Reviewed drug interactions, risk/benefit ratio favors no further change. Discharge either Tuesday or Tuesday. MAN Juanita MYLES MD DR: TONO/ugo JOB#: [id number] / [id number]
[2016-12-25 06:19] VITALS: BP 90/57
[2016-12-25] MEDS: busPIRone 5 MG TABLET. PO SCH ×3 (07:50→17:35)
[2016-12-25] MEDS: POLYETHYLENE GLYCOL 3350 17 GM PACKET. PO SCH (07:50)
[2016-12-25] MEDS: QUEtiapine 50 MG TABLET. PO SCH ×3 (07:50→17:35)
[2016-12-25] MEDS: SENNOSIDES/DOCUSATE 8.6/50MG TABLET. PO SCH (07:50)
[2016-12-25] MEDS: SERTRALINE 25 MG TABLET. PO SCH (07:50)
[2016-12-25] MEDS: ASPIRIN ENTERIC COATED 81 MG TABLET.DR. PO SCH (07:51)
[2016-12-25] MEDS: MAGNESIUM OXIDE 400 MG TABLET PO SCH ×2 (07:51→17:36)
[2016-12-25] MEDS: DIVALPROEX 125 MG CAP.SPRINK PO SCH ×3 (07:51→20:15)
[2016-12-25] MEDS: CARBIDOPA/LEVODOPA 25/100MG TABLET PO SCH ×3 (07:51→20:15)
[2016-12-25] MEDS: traMADol 50 MG TABLET PO SCH ×3 (07:53→20:17)
[2016-12-25] MEDS: ALPRAZolam 0.5 MG TABLET PO SCH (07:53)
[2016-12-25 17:03] VITALS: BP 106/67
[2016-12-25] MEDS: traZODone 50 MG TABLET. PO PRN (20:15)
[2016-12-25] MEDS: MIRTAZAPINE 30 MG TABLET PO SCH (20:15)
[2016-12-25] MEDS: ENOXAPARIN 40 MG/0.4 ML DISP.SYRIN. SQ SCH (20:16)
--- NOTE | 2016-12-25 21:15 | PDOC ---
Exam Gerardo Demential Exam: Gerardo Note: Please also refer to the separate dictated note~for this date of service dictated separately.~Patient seen individually. Discussed the patient with Nursing staff reviewed the chart.~Reviewed interim history and current functioning. Reviewed vital signs,~Labs/ Radiology~and current medications noted below. Continue current treatment with the changes noted in the dictated addendum note Assessment: Vital Signs: Vital Signs Date Time Temp Pulse Resp B/P (MAP) Pulse Ox O2 Delivery O2 Flow Rate FiO2 12/25/16 20:17 95 Room Air 12/25/16 17:03 98.1 89 20 106/67 (80) I&O Intake and Output 12/26/16 07:00 Intake Total 840 ml Balance 840 ml Intake Oral 840 ml # Bowel Movements 1 Current Medications: Meds: Current Medications Alprazolam (Xanax) 0.25 mg PRN Q4HRS PRN PO ANXIETY / AGITATION Last administered on 12/22/16 15:28; Start 12/10/16 at 20:15 Alprazolam (Xanax) 0.5 mg DAILY PO Last administered on 12/25/16 07:53; Start 12/11/16 at 09:00 Bupropion HCl (Wellbutrin Sr) 150 mg BID PO Last administered on 12/11/16 07:45 ; Start 12/10/16 at 21:00; Stop 12/11/16 at 18:54; Status DC Divalproex Sodium (Depakote Sprinkles) 500 mg BID PO Last administered on 20:15; Start 12/10/16 at 21:00 Donepezil HCl (Aricept) 20 mg DAILY PO Last administered on 12/12/16 07:18; Start 12/11/16 at 09:00; Stop 12/12/16 at 18:35; Status DC Mirtazapine (Remeron) 30 mg QHS PO Last administered on 12/25/16 20:15; Start 12/10/16 at 21:00 Quetiapine Fumarate (SEROquel) 50 mg TID PO Last administered on 12/16/16 07: 47; Start 12/10/16 at 21:00; Stop 12/16/16 at 11:04; Status DC Divalproex Sodium (Depakote Sprinkles) 250 mg DAILY@1200 PO Last administered on 12/25/16 13:26; Start 12/11/16 at 12:00 Acetaminophen (Tylenol) 60 mg PRN Q6HRS PRN PO PAIN / TEMP; Start 12/10/16 at 21 :45; Stop 12/12/16 at 12:05; Status DC Aspirin (Aspirin Enteric Coated) 81 mg DAILY PO Last administered on 12/25/16 07:51; Start 12/11/16 at 09:00 Bisacodyl (Dulcolax Supp) 10 mg PRN DAILY PRN RC CONSTIPATION Last administered on 12/19/16 22:52; Start 12/10/16 at 21:45 Magnesium Hydroxide (Milk Of Magnesia) 2,400 mg PRN DAILY PRN PO CONSTIPATION Last administered on 12/14/16 19:15; Start 12/10/16 at 21:45 Polyethylene Glycol (miraLAX) 17 gm PRN DAILY PRN PO CONSTIPATION Last administered on 12/20/16 08:07; Start 12/11/16 at 09:00; Stop 12/21/16 at 07:56 ; Status DC Senna/Docusate Sodium (Senna Plus) 1 tab DAILY PO Last administered on 07:50; Start 12/11/16 at 09:00 Tramadol HCl (Ultram) 50 mg TID PO Last administered on 12/25/16 20:17; Start 12/10/16 at 22:30 Metronidazole (Nydamax) 1 tiffanie PRN Q72HRS PRN TP APPLY TWICE WEEKLY NEEDED Last administered on 12/24/16 08:13; Start 12/10/16 at 22:15 Ondansetron HCl (Zofran Odt) 4 mg PRN Q8HRS PRN PO NAUSEA; Start 12/10/16 at 22: 15 Enoxaparin Sodium (Lovenox) 40 mg QHS SQ Last administered on 12/25/16 20:16; Start 12/10/16 at 22:30 Magnesium Oxide (Magnesium Oxide) 400 mg BID94 PO Last administered on 17:36; Start 12/11/16 at 16:00 Olanzapine (ZyPREXA ZYDIS) 2.5 mg PRN Q2HR PRN PO PSYCHOSIS Last administered on 12/25/16 13:27; Start 12/11/16 at 17:15 Citalopram Hydrobromide (CeleXA) 10 mg DAILY PO Last administered on 12/13/16 09:40; Start 12/12/16 at 09:00; Stop 12/13/16 at 18:43; Status DC Acetaminophen (Tylenol) 650 mg PRN Q6HRS PRN PO PAIN / TEMP Last administered on 12/14/16 19:39; Start 12/12/16 at 12:15 Carbidopa/Levodopa (Sinemet 25/100) 1 tab TID PO Last administered on 20:15; Start 12/12/16 at 21:00 Vitamin D (Vitamin D3) 50,000 unit WEEKLY PO Last administered on 12/21/16 08: 23; Start 12/14/16 at 09:00 Buspirone HCl (Buspar) 5 mg BID@0900,1300 PO Last administered on 12/16/16 07: 47; Start 12/14/16 at 09:00; Stop 12/16/16 at 12:00; Status DC Sertraline HCl (Zoloft) 50 mg DAILY PO Last administered on 12/16/16 07:47; Start 12/14/16 at 09:00; Stop 12/16/16 at 11:44; Status DC Magnesium Citrate (Citroma) 296 ml PRN 1X PRN PO CONSTIPATION; Start 12/14/16 at 17:30 Buspirone HCl (Buspar) 5 mg BID@0800,1200,1500 PO Last administered on 17:35; Start 12/16/16 at 12:00 Quetiapine Fumarate (SEROquel) 50 mg TID@0800,1200,1500 PO Last administered on 12/25/16 17:35; Start 12/16/16 at 12:00 Sertraline HCl (Zoloft) 50 mg DAILY PO Last administered on 12/21/16 08:16; Start 12/17/16 at 09:00; Stop 12/21/16 at 12:59; Status DC Trazodone HCl (Desyrel) 50 mg PRN QHS PRN PO INSOMNIA, MAY REPEAT X1 Last administered on 12/25/16 20:15; Start 12/17/16 at 18:15 Polyethylene Glycol (miraLAX) 17 gm DAILY PO Last administered on 12/25/16 07: 50; Start 12/21/16 at 08:10 Sertraline HCl (Zoloft) 75 mg DAILY PO Last administered on 12/25/16 07:50; Start 12/22/16 at 09:00 Active Scripts Active Reported Sulfacetamide-Sulfur 10-5% Crm (Sulfacetamide Sodium/Sulfur) 57 Gm Cream..g. 1 Tiffanie TP PRN DAILY PRN Metronidazole 60 Gm Gel..gram. 1 Tiffanie TP PRN TWICE WEEKLY Dulcolax (Bisacodyl) 10 Mg Supp.rect 10 Mg RC PRN DAILY PRN Miralax (Polyethylene Glycol 3350) 119 Gm Powder 17 Gm PO PRN DAILY PRN Zofran (Ondansetron Hcl) 4 Mg Tablet 4 Mg PO PRN Q8HRS PRN Milk Of Magnesia (Magnesium Hydroxide) 400 Mg/5 Ml Oral.susp 2,400 Mg PO PRN DAILY PRN Biofreeze (Menthol) 118 Ml Gel..ml. 1 Tiffanie TP PRN TID PRN Xanax (Alprazolam) 0.25 Mg Tablet 0.25 Mg PO PRN Q4HRS PRN Claritin (Loratadine) 10 Mg Tablet 10 Mg PO PRN DAILY PRN Maglox Liquid (Mag Hydrox/Al Hydrox/Simeth) 360 Ml Oral.susp 30 Ml PO PRN TID PRN Tylenol (Acetaminophen) 325 Mg Tablet 60 Mg PO PRN Q6HRS PRN Senna S Tablet (Sennosides/Docusate Sodium) 1 Each Tablet 1 Tab PO DAILY Xanax (Alprazolam) 0.5 Mg Tablet 0.5 Mg PO DAILY Tramadol Hcl (Tramadol HCl) 50 Mg Tablet 50 Mg PO TID Seroquel (Quetiapine Fumarate) 50 Mg Tablet 50 Mg PO TID Depakote Sprinkle (Divalproex Sodium) 125 Mg Cap.sprink 250 Mg PO DAILY@1200 Remeron (Mirtazapine) 30 Mg Tablet 30 Mg PO QHS Depakote Sprinkle (Divalproex Sodium) 125 Mg Cap.sprink 500 Mg PO BID Wellbutrin Sr (Bupropion Hcl) 150 Mg Tablet.er 150 Mg PO BID Aricept (Donepezil Hcl) 10 Mg Tablet 20 Mg PO DAILY Aspirin Ec (Aspirin) 81 Mg Tablet.dr 81 Mg PO DAILY Diagnosis: Problems: (1) Anxiety disorder (2) Dementia in Alzheimer's disease with delusions (3) Dementia in Alzheimer's disease with depression (4) Dementia, vascular, with delusions (5) Dementia, vascular, with depression (6) Impulse control disorder TATIANNA MYLES MD Dec 25, 2016 21:15
--- NOTE | 2016-12-25 21:40 | PN ---
DATE: 12/24/2016 This is a late entry 12/24/2016 covers elements not covered my initial 12/24/2016. I met with the patient in the evening of 12/24/2016. The patient has been restless, walks several times with staff, received Zyprexa p.r.n. and slept until suppertime. REVIEW OF SYSTEMS: Ambulation impaired, with a wheelchair. No CV, , pulmonary, eye system symptoms on review. Reliability poor. MENTAL STATUS EXAM: Oriented to himself. Insight, judgment, recent and remote memory, attention, concentration, fund of knowledge poor, consistent with his diagnosis. Very pleasant, as I met with him oblivious of his surroundings. LABORATORY DATA: Reviewed. IMPRESSION: Unchanged from initial note. PLAN: Continue current psychotropics. Check valproic acid level 12/26/2016 since current level is 49, previously was 62 with no change in dosage. Reviewed drug interactions, risk/benefit ratio favors no further change. TATIANNA MYLES MD DR: TONO/ugo JOB#: [id number] / [id number]
[2016-12-26 06:20] VITALS: BP 109/70
[2016-12-26] MEDS: CARBIDOPA/LEVODOPA 25/100MG TABLET PO SCH ×3 (07:46→19:55)
[2016-12-26] MEDS: POLYETHYLENE GLYCOL 3350 17 GM PACKET. PO SCH (07:46)
[2016-12-26] MEDS: MAGNESIUM OXIDE 400 MG TABLET PO SCH ×2 (07:46→16:47)
[2016-12-26] MEDS: QUEtiapine 50 MG TABLET. PO SCH ×3 (07:46→16:46)
[2016-12-26] MEDS: SERTRALINE 25 MG TABLET. PO SCH (07:47)
[2016-12-26] MEDS: SENNOSIDES/DOCUSATE 8.6/50MG TABLET. PO SCH (07:47)
[2016-12-26] MEDS: DIVALPROEX 125 MG CAP.SPRINK PO SCH ×3 (07:47→19:55)
[2016-12-26] MEDS: busPIRone 5 MG TABLET. PO SCH ×3 (07:47→16:46)
[2016-12-26] MEDS: ASPIRIN ENTERIC COATED 81 MG TABLET.DR. PO SCH (07:49)
[2016-12-26] MEDS: traMADol 50 MG TABLET PO SCH ×3 (07:49→19:56)
[2016-12-26] MEDS: ALPRAZolam 0.5 MG TABLET PO SCH (07:49)
[2016-12-26 10:51] LABS: VAL ACID 38 mcg/mL (50-100)
[2016-12-26 16:27] VITALS: BP 107/78
[2016-12-26] MEDS ORDERED: CARB1TAB2 PO (17:32)
[2016-12-26] MEDS ORDERED: CHOL500021 PO (17:35)
[2016-12-26] MEDS ORDERED: MAGN296S9 PO (17:36)
[2016-12-26] MEDS ORDERED: MAGN400T3 PO (17:36)
[2016-12-26] MEDS ORDERED: OLAN5TAB5 PO (17:37)
[2016-12-26] MEDS ORDERED: SERT50TA PO (17:38)
[2016-12-26] MEDS ORDERED: BUSP5TAB PO (17:39)
[2016-12-26] MEDS ORDERED: TRAZ50TA15 PO (17:41)
[2016-12-26] MEDS: MIRTAZAPINE 30 MG TABLET PO SCH (19:55)
[2016-12-26] MEDS: ENOXAPARIN 40 MG/0.4 ML DISP.SYRIN. SQ SCH (19:56)
[2016-12-26] MEDS: traZODone 50 MG TABLET. PO PRN (19:57)
--- NOTE | 2016-12-26 20:14 | PN ---
DATE: 12/25/2016 This is a late entry for 12/25/2016 and covers the elements not covered in my initial note of 12/25/2016. SUBJECTIVE: I met with the patient in the evening of 12/25/2016. He has been anxious, restless, confused, more so after lunch, received Zyprexa x 1. REVIEW OF SYSTEMS: Ambulation impaired, in a Broda chair. No CV, , pulmonary, eye, ENT system symptoms on review. Reliability poor due to dementia, not forthcoming answering review of symptoms, questions much of this is deduced from his responses. MENTAL STATUS EXAM: Oriented to himself. Insight, judgment, recent and remote memory, attention, concentration, fund of knowledge poor, consistent with his diagnosis mentioned in my initial note. PLAN: Continue current psychotropics. Check valproic acid level on 12/26/2016. Reviewed drug interactions. Risk/benefit ratio favors no further change. TATIANNA MYLES MD DR: TONO/ugo JOB#: [id number] / [id number]
--- NOTE | 2016-12-26 22:47 | PDOC ---
Exam Gerardo Demential Exam: Gerardo Note: Please also refer to the separate dictated note~for this date of service dictated separately.~Patient seen individually. Discussed the patient with Nursing staff reviewed the chart.~Reviewed interim history and current functioning. Reviewed vital signs,~Labs/ Radiology~and current medications noted below. Continue current treatment with the changes noted in the dictated addendum note Assessment: Vital Signs: Vital Signs Date Time Temp Pulse Resp B/P (MAP) Pulse Ox O2 Delivery O2 Flow Rate FiO2 12/26/16 21:49 20 Room Air 12/26/16 16:27 98.0 77 107/78 (88) 96 I&O Intake and Output 12/27/16 07:00 Intake Total 720 ml Balance 720 ml Intake Oral 720 ml # Voids 2 Labs: Laboratory Tests Test 12/26/16 10:33 Valproic Acid Level 38 mcg/mL (50-100) L Valproic Acid Last Dose Date 12/25/16 Valproic Acid Last Dose Time 2100 Current Medications: Meds: Current Medications Alprazolam (Xanax) 0.25 mg PRN Q4HRS PRN PO ANXIETY / AGITATION Last administered on 12/22/16 15:28; Start 12/10/16 at 20:15 Alprazolam (Xanax) 0.5 mg DAILY PO Last administered on 12/26/16 07:49; Start 12/11/16 at 09:00 Bupropion HCl (Wellbutrin Sr) 150 mg BID PO Last administered on 12/11/16 07:45 ; Start 12/10/16 at 21:00; Stop 12/11/16 at 18:54; Status DC Divalproex Sodium (Depakote Sprinkles) 500 mg BID PO Last administered on 19:55; Start 12/10/16 at 21:00 Donepezil HCl (Aricept) 20 mg DAILY PO Last administered on 12/12/16 07:18; Start 12/11/16 at 09:00; Stop 12/12/16 at 18:35; Status DC Mirtazapine (Remeron) 30 mg QHS PO Last administered on 12/26/16 19:55; Start 12/10/16 at 21:00 Quetiapine Fumarate (SEROquel) 50 mg TID PO Last administered on 12/16/16 07: 47; Start 12/10/16 at 21:00; Stop 12/16/16 at 11:04; Status DC Divalproex Sodium (Depakote Sprinkles) 250 mg DAILY@1200 PO Last administered on 12/26/16 13:21; Start 12/11/16 at 12:00 Acetaminophen (Tylenol) 60 mg PRN Q6HRS PRN PO PAIN / TEMP; Start 12/10/16 at 21 :45; Stop 12/12/16 at 12:05; Status DC Aspirin (Aspirin Enteric Coated) 81 mg DAILY PO Last administered on 12/26/16 07:49; Start 12/11/16 at 09:00 Bisacodyl (Dulcolax Supp) 10 mg PRN DAILY PRN RC CONSTIPATION Last administered on 12/19/16 22:52; Start 12/10/16 at 21:45 Magnesium Hydroxide (Milk Of Magnesia) 2,400 mg PRN DAILY PRN PO CONSTIPATION Last administered on 12/14/16 19:15; Start 12/10/16 at 21:45 Polyethylene Glycol (miraLAX) 17 gm PRN DAILY PRN PO CONSTIPATION Last administered on 12/20/16 08:07; Start 12/11/16 at 09:00; Stop 12/21/16 at 07:56 ; Status DC Senna/Docusate Sodium (Senna Plus) 1 tab DAILY PO Last administered on 07:47; Start 12/11/16 at 09:00 Tramadol HCl (Ultram) 50 mg TID PO Last administered on 12/26/16 19:56; Start 12/10/16 at 22:30 Metronidazole (Nydamax) 1 tiffanie PRN Q72HRS PRN TP APPLY TWICE WEEKLY NEEDED Last administered on 12/24/16 08:13; Start 12/10/16 at 22:15 Ondansetron HCl (Zofran Odt) 4 mg PRN Q8HRS PRN PO NAUSEA; Start 12/10/16 at 22: 15 Enoxaparin Sodium (Lovenox) 40 mg QHS SQ Last administered on 12/26/16 19:56; Start 12/10/16 at 22:30 Magnesium Oxide (Magnesium Oxide) 400 mg BID94 PO Last administered on 16:47; Start 12/11/16 at 16:00 Olanzapine (ZyPREXA ZYDIS) 2.5 mg PRN Q2HR PRN PO PSYCHOSIS Last administered on 12/25/16 13:27; Start 12/11/16 at 17:15 Citalopram Hydrobromide (CeleXA) 10 mg DAILY PO Last administered on 12/13/16 09:40; Start 12/12/16 at 09:00; Stop 12/13/16 at 18:43; Status DC Acetaminophen (Tylenol) 650 mg PRN Q6HRS PRN PO PAIN / TEMP Last administered on 12/14/16 19:39; Start 12/12/16 at 12:15 Carbidopa/Levodopa (Sinemet 25/100) 1 tab TID PO Last administered on 19:55; Start 12/12/16 at 21:00 Vitamin D (Vitamin D3) 50,000 unit WEEKLY PO Last administered on 12/21/16 08: 23; Start 12/14/16 at 09:00 Buspirone HCl (Buspar) 5 mg BID@0900,1300 PO Last administered on 12/16/16 07: 47; Start 12/14/16 at 09:00; Stop 12/16/16 at 12:00; Status DC Sertraline HCl (Zoloft) 50 mg DAILY PO Last administered on 12/16/16 07:47; Start 12/14/16 at 09:00; Stop 12/16/16 at 11:44; Status DC Magnesium Citrate (Citroma) 296 ml PRN 1X PRN PO CONSTIPATION; Start 12/14/16 at 17:30 Buspirone HCl (Buspar) 5 mg BID@0800,1200,1500 PO Last administered on 16:46; Start 12/16/16 at 12:00; Stop 12/26/16 at 18:41; Status DC Quetiapine Fumarate (SEROquel) 50 mg TID@0800,1200,1500 PO Last administered on 12/26/16 16:46; Start 12/16/16 at 12:00 Sertraline HCl (Zoloft) 50 mg DAILY PO Last administered on 12/21/16 08:16; Start 9/15/17 at 09:00; Stop 12/21/16 at 12:59; Status DC Trazodone HCl (Desyrel) 50 mg PRN QHS PRN PO INSOMNIA, MAY REPEAT X1 Last administered on 12/26/16 19:57; Start 12/17/16 at 18:15 Polyethylene Glycol (miraLAX) 17 gm DAILY PO Last administered on 12/26/16 07: 46; Start 12/21/16 at 08:10 Sertraline HCl (Zoloft) 75 mg DAILY PO Last administered on 12/26/16 07:47; Start 12/22/16 at 09:00 Trazodone HCl (Desyrel) 12.5 mg BID92 PO ; Start 12/27/16 at 09:00 Active Scripts Active Reported Trazodone Hcl 50 Mg Tablet 50 Mg PO PRN QHS PRN Buspirone Hcl 5 Mg Tablet 5 Mg PO TID 08 12 15 Zoloft (Sertraline Hcl) 50 Mg Tablet 75 Mg PO DAILY Zyprexa Zydis (Olanzapine) 5 Mg Tab.rapdis 2.5 Mg PO Magnesium Oxide 400 Mg Tablet 400 Mg PO BID94 Magnesium Citrate 296 Ml Solution 296 Ml PO PRN DAILY PRN D3-50 (Cholecalciferol (Vitamin D3)) 50,000 Unit Capsule 50,000 Unit PO WEEKLY Sinemet 25-100 Mg Tablet (Carbidopa/Levodopa) 1 Each Tablet 1 Tab PO TID Sulfacetamide-Sulfur 10-5% Crm (Sulfacetamide Sodium/Sulfur) 57 Gm Cream..g. 1 Tiffanie TP PRN DAILY PRN Metronidazole 60 Gm Gel..gram. 1 Tiffanie TP PRN TWICE WEEKLY Dulcolax (Bisacodyl) 10 Mg Supp.rect 10 Mg RC PRN DAILY PRN Miralax (Polyethylene Glycol 3350) 119 Gm Powder 17 Gm PO PRN DAILY PRN Zofran (Ondansetron Hcl) 4 Mg Tablet 4 Mg PO PRN Q8HRS PRN Milk Of Magnesia (Magnesium Hydroxide) 400 Mg/5 Ml Oral.susp 2,400 Mg PO PRN DAILY PRN Biofreeze (Menthol) 118 Ml Gel..ml. 1 Tiffanie TP PRN TID PRN Xanax (Alprazolam) 0.25 Mg Tablet 0.25 Mg PO PRN Q4HRS PRN Claritin (Loratadine) 10 Mg Tablet 10 Mg PO PRN DAILY PRN Maglox Liquid (Mag Hydrox/Al Hydrox/Simeth) 360 Ml Oral.susp 30 Ml PO PRN TID PRN Tylenol (Acetaminophen) 325 Mg Tablet 60 Mg PO PRN Q6HRS PRN Senna S Tablet (Sennosides/Docusate Sodium) 1 Each Tablet 1 Tab PO DAILY Xanax (Alprazolam) 0.5 Mg Tablet 0.5 Mg PO DAILY Tramadol Hcl (Tramadol HCl) 50 Mg Tablet 50 Mg PO TID Seroquel (Quetiapine Fumarate) 50 Mg Tablet 50 Mg PO TID Depakote Sprinkle (Divalproex Sodium) 125 Mg Cap.sprink 250 Mg PO DAILY@1200 Remeron (Mirtazapine) 30 Mg Tablet 30 Mg PO QHS Depakote Sprinkle (Divalproex Sodium) 125 Mg Cap.sprink 500 Mg PO BID Wellbutrin Sr (Bupropion Hcl) 150 Mg Tablet.er 150 Mg PO BID Aricept (Donepezil Hcl) 10 Mg Tablet 20 Mg PO DAILY Aspirin Ec (Aspirin) 81 Mg Tablet.dr 81 Mg PO DAILY Diagnosis: Problems: (1) Anxiety disorder (2) Dementia in Alzheimer's disease with delusions (3) Dementia in Alzheimer's disease with depression (4) Dementia, vascular, with delusions (5) Dementia, vascular, with depression (6) Impulse control disorder TATIANNA MYLES MD Dec 26, 2016 22:47
[2016-12-27] MEDS: MAGNESIUM OXIDE 400 MG TABLET PO SCH ×2 (09:04→16:32)
[2016-12-27] MEDS: traMADol 50 MG TABLET PO SCH ×3 (09:04→19:35)
[2016-12-27] MEDS: CARBIDOPA/LEVODOPA 25/100MG TABLET PO SCH ×3 (09:04→19:35)
[2016-12-27] MEDS: SENNOSIDES/DOCUSATE 8.6/50MG TABLET. PO SCH (09:05)
[2016-12-27] MEDS: QUEtiapine 50 MG TABLET. PO SCH ×3 (09:05→14:26)
[2016-12-27] MEDS: SERTRALINE 25 MG TABLET. PO SCH (09:05)
[2016-12-27] MEDS: DIVALPROEX 125 MG CAP.SPRINK PO SCH ×3 (09:05→19:35)
[2016-12-27] MEDS: ASPIRIN ENTERIC COATED 81 MG TABLET.DR. PO SCH (09:05)
[2016-12-27] MEDS: ALPRAZolam 0.5 MG TABLET PO SCH (09:05)
[2016-12-27] MEDS: POLYETHYLENE GLYCOL 3350 17 GM PACKET. PO SCH (09:06)
[2016-12-27] MEDS: traZODone 50 MG TABLET. PO SCH ×2 (09:07→14:26)
[2016-12-27 16:27] VITALS: BP 98/63
[2016-12-27] MEDS: ENOXAPARIN 40 MG/0.4 ML DISP.SYRIN. SQ SCH (19:35)
[2016-12-27] MEDS: MIRTAZAPINE 30 MG TABLET PO SCH (19:35)
[2016-12-27] MEDS: traZODone 50 MG TABLET. PO PRN (19:37)
--- NOTE | 2016-12-27 21:05 | PDOC ---
Exam Gerardo Demential Exam: Gerardo Note: Please also refer to the separate dictated note~for this date of service dictated separately.~Patient seen individually. Discussed the patient with Nursing staff reviewed the chart.~Reviewed interim history and current functioning. Reviewed vital signs,~Labs/ Radiology~and current medications noted below. Continue current treatment with the changes noted in the dictated addendum note Assessment: Vital Signs: Vital Signs Date Time Temp Pulse Resp B/P (MAP) Pulse Ox O2 Delivery O2 Flow Rate FiO2 12/27/16 19:35 95 12/27/16 16:31 16 Room Air 12/27/16 16:27 97.2 70 98/63 (75) I&O Intake and Output 12/28/16 07:00 Intake Total 240 ml Balance 240 ml Intake Oral 240 ml Current Medications: Meds: Current Medications Alprazolam (Xanax) 0.25 mg PRN Q4HRS PRN PO ANXIETY / AGITATION Last administered on 12/22/16 15:28; Start 12/10/16 at 20:15 Alprazolam (Xanax) 0.5 mg DAILY PO Last administered on 12/27/16 09:05; Start 12/11/16 at 09:00 Bupropion HCl (Wellbutrin Sr) 150 mg BID PO Last administered on 12/11/16 07:45 ; Start 12/10/16 at 21:00; Stop 12/11/16 at 18:54; Status DC Divalproex Sodium (Depakote Sprinkles) 500 mg BID PO Last administered on 19:35; Start 12/10/16 at 21:00 Donepezil HCl (Aricept) 20 mg DAILY PO Last administered on 12/12/16 07:18; Start 12/11/16 at 09:00; Stop 12/12/16 at 18:35; Status DC Mirtazapine (Remeron) 30 mg QHS PO Last administered on 12/27/16 19:35; Start 12/10/16 at 21:00 Quetiapine Fumarate (SEROquel) 50 mg TID PO Last administered on 12/16/16 07: 47; Start 12/10/16 at 21:00; Stop 12/16/16 at 11:04; Status DC Divalproex Sodium (Depakote Sprinkles) 250 mg DAILY@1200 PO Last administered on 12/27/16 12:02; Start 12/11/16 at 12:00 Acetaminophen (Tylenol) 60 mg PRN Q6HRS PRN PO PAIN / TEMP; Start 12/10/16 at 21 :45; Stop 12/12/16 at 12:05; Status DC Aspirin (Aspirin Enteric Coated) 81 mg DAILY PO Last administered on 12/27/16 09:05; Start 12/11/16 at 09:00 Bisacodyl (Dulcolax Supp) 10 mg PRN DAILY PRN RC CONSTIPATION Last administered on 12/19/16 22:52; Start 12/10/16 at 21:45 Magnesium Hydroxide (Milk Of Magnesia) 2,400 mg PRN DAILY PRN PO CONSTIPATION Last administered on 12/14/16 19:15; Start 12/10/16 at 21:45 Polyethylene Glycol (miraLAX) 17 gm PRN DAILY PRN PO CONSTIPATION Last administered on 12/20/16 08:07; Start 12/11/16 at 09:00; Stop 12/21/16 at 07:56 ; Status DC Senna/Docusate Sodium (Senna Plus) 1 tab DAILY PO Last administered on 09:05; Start 12/11/16 at 09:00 Tramadol HCl (Ultram) 50 mg TID PO Last administered on 12/27/16 19:35; Start 12/10/16 at 22:30 Metronidazole (Nydamax) 1 tiffanie PRN Q72HRS PRN TP APPLY TWICE WEEKLY NEEDED Last administered on 12/24/16 08:13; Start 12/10/16 at 22:15 Ondansetron HCl (Zofran Odt) 4 mg PRN Q8HRS PRN PO NAUSEA; Start 12/10/16 at 22: 15 Enoxaparin Sodium (Lovenox) 40 mg QHS SQ Last administered on 12/27/16 19:35; Start 12/10/16 at 22:30 Magnesium Oxide (Magnesium Oxide) 400 mg BID94 PO Last administered on 16:32; Start 12/11/16 at 16:00 Olanzapine (ZyPREXA ZYDIS) 2.5 mg PRN Q2HR PRN PO PSYCHOSIS Last administered on 12/25/16 13:27; Start 12/11/16 at 17:15 Citalopram Hydrobromide (CeleXA) 10 mg DAILY PO Last administered on 12/13/16 09:40; Start 12/12/16 at 09:00; Stop 12/13/16 at 18:43; Status DC Acetaminophen (Tylenol) 650 mg PRN Q6HRS PRN PO PAIN / TEMP Last administered on 12/14/16 19:39; Start 12/12/16 at 12:15 Carbidopa/Levodopa (Sinemet 25/100) 1 tab TID PO Last administered on 19:35; Start 12/12/16 at 21:00 Vitamin D (Vitamin D3) 50,000 unit WEEKLY PO Last administered on 12/21/16 08: 23; Start 12/14/16 at 09:00 Buspirone HCl (Buspar) 5 mg BID@0900,1300 PO Last administered on 12/16/16 07: 47; Start 12/14/16 at 09:00; Stop 12/16/16 at 12:00; Status DC Sertraline HCl (Zoloft) 50 mg DAILY PO Last administered on 12/16/16 07:47; Start 12/14/16 at 09:00; Stop 12/16/16 at 11:44; Status DC Magnesium Citrate (Citroma) 296 ml PRN 1X PRN PO CONSTIPATION; Start 12/14/16 at 17:30 Buspirone HCl (Buspar) 5 mg BID@0800,1200,1500 PO Last administered on 16:46; Start 12/16/16 at 12:00; Stop 12/26/16 at 18:41; Status DC Quetiapine Fumarate (SEROquel) 50 mg TID@0800,1200,1500 PO Last administered on 12/27/16 14:26; Start 12/16/16 at 12:00 Sertraline HCl (Zoloft) 50 mg DAILY PO Last administered on 12/21/16 08:16; Start 12/17/16 at 09:00; Stop 12/21/16 at 12:59; Status DC Trazodone HCl (Desyrel) 50 mg PRN QHS PRN PO INSOMNIA, MAY REPEAT X1 Last administered on 12/27/16 19:37; Start 12/17/16 at 18:15 Polyethylene Glycol (miraLAX) 17 gm DAILY PO Last administered on 12/27/16 09: 06; Start 12/21/16 at 08:10 Sertraline HCl (Zoloft) 75 mg DAILY PO Last administered on 12/27/16 09:05; Start 12/22/16 at 09:00 Trazodone HCl (Desyrel) 12.5 mg BID92 PO Last administered on 12/27/16 14:26; Start 12/27/16 at 09:00 Active Scripts Active Reported Trazodone Hcl 50 Mg Tablet 50 Mg PO PRN QHS PRN Buspirone Hcl 5 Mg Tablet 5 Mg PO TID 08 12 15 Zoloft (Sertraline Hcl) 50 Mg Tablet 75 Mg PO DAILY Zyprexa Zydis (Olanzapine) 5 Mg Tab.rapdis 2.5 Mg PO Magnesium Oxide 400 Mg Tablet 400 Mg PO BID94 Magnesium Citrate 296 Ml Solution 296 Ml PO PRN DAILY PRN D3-50 (Cholecalciferol (Vitamin D3)) 50,000 Unit Capsule 50,000 Unit PO WEEKLY Sinemet 25-100 Mg Tablet (Carbidopa/Levodopa) 1 Each Tablet 1 Tab PO TID Sulfacetamide-Sulfur 10-5% Crm (Sulfacetamide Sodium/Sulfur) 57 Gm Cream..g. 1 Tiffanie TP PRN DAILY PRN Metronidazole 60 Gm Gel..gram. 1 Tiffanie TP PRN TWICE WEEKLY Dulcolax (Bisacodyl) 10 Mg Supp.rect 10 Mg RC PRN DAILY PRN Miralax (Polyethylene Glycol 3350) 119 Gm Powder 17 Gm PO PRN DAILY PRN Zofran (Ondansetron Hcl) 4 Mg Tablet 4 Mg PO PRN Q8HRS PRN Milk Of Magnesia (Magnesium Hydroxide) 400 Mg/5 Ml Oral.susp 2,400 Mg PO PRN DAILY PRN Biofreeze (Menthol) 118 Ml Gel..ml. 1 Tiffanie TP PRN TID PRN Xanax (Alprazolam) 0.25 Mg Tablet 0.25 Mg PO PRN Q4HRS PRN Claritin (Loratadine) 10 Mg Tablet 10 Mg PO PRN DAILY PRN Maglox Liquid (Mag Hydrox/Al Hydrox/Simeth) 360 Ml Oral.susp 30 Ml PO PRN TID PRN Tylenol (Acetaminophen) 325 Mg Tablet 60 Mg PO PRN Q6HRS PRN Senna S Tablet (Sennosides/Docusate Sodium) 1 Each Tablet 1 Tab PO DAILY Xanax (Alprazolam) 0.5 Mg Tablet 0.5 Mg PO DAILY Tramadol Hcl (Tramadol HCl) 50 Mg Tablet 50 Mg PO TID Seroquel (Quetiapine Fumarate) 50 Mg Tablet 50 Mg PO TID Depakote Sprinkle (Divalproex Sodium) 125 Mg Cap.sprink 250 Mg PO DAILY@1200 Remeron (Mirtazapine) 30 Mg Tablet 30 Mg PO QHS Depakote Sprinkle (Divalproex Sodium) 125 Mg Cap.sprink 500 Mg PO BID Wellbutrin Sr (Bupropion Hcl) 150 Mg Tablet.er 150 Mg PO BID Aricept (Donepezil Hcl) 10 Mg Tablet 20 Mg PO DAILY Aspirin Ec (Aspirin) 81 Mg Tablet.dr 81 Mg PO DAILY Diagnosis: Problems: (1) Anxiety disorder (2) Dementia in Alzheimer's disease with delusions (3) Dementia in Alzheimer's disease with depression (4) Dementia, vascular, with delusions (5) Dementia, vascular, with depression (6) Impulse control disorder TATIANNA MYLES MD Dec 27, 2016 21:05
[2016-12-28 06:22] VITALS: BP 96/59
[2016-12-28] MEDS: DIVALPROEX 125 MG CAP.SPRINK PO SCH ×3 (07:48→19:23)
[2016-12-28] MEDS: MAGNESIUM OXIDE 400 MG TABLET PO SCH ×2 (07:48→16:38)
[2016-12-28] MEDS: POLYETHYLENE GLYCOL 3350 17 GM PACKET. PO SCH (07:48)
[2016-12-28] MEDS: ASPIRIN ENTERIC COATED 81 MG TABLET.DR. PO SCH (07:48)
[2016-12-28] MEDS: SERTRALINE 25 MG TABLET. PO SCH (07:48)
[2016-12-28] MEDS: traZODone 50 MG TABLET. PO SCH ×2 (07:48→13:34)
[2016-12-28] MEDS: CARBIDOPA/LEVODOPA 25/100MG TABLET PO SCH ×3 (07:49→19:24)
[2016-12-28] MEDS: SENNOSIDES/DOCUSATE 8.6/50MG TABLET. PO SCH (07:49)
[2016-12-28] MEDS: QUEtiapine 50 MG TABLET. PO SCH ×3 (07:49→16:38)
[2016-12-28] MEDS: traMADol 50 MG TABLET PO SCH ×3 (07:51→19:24)
[2016-12-28] MEDS: ALPRAZolam 0.5 MG TABLET PO SCH (07:51)
[2016-12-28] MEDS: CHOLECALCIFEROL (VITAMIN D3) 50,000 UNIT CAPSULE PO SCH (07:52)
--- NOTE | 2016-12-28 09:25 | PN ---
DATE: 12/26/2016 PSYCHIATRIC PROGRESS NOTE This late entry 12/26/2016, covers elements not covered in my initial note of 12/26/2016. SUBJECTIVE: The patient remains confused. In the evening, he was acting out, agitated, labile, biting staff, somewhat paranoid. REVIEW OF SYSTEMS: Ambulation impaired, in a Broda chair. No CV, , pulmonary, eye, ENT system symptoms on review. Reliability poor. MENTAL STATUS EXAM: Oriented to himself. Insight, judgment, recent and remote memory, attention, concentration, fund of knowledge poor, consistent with his diagnosis mentioned in my initial note. Valproic acid level on 12/26/2016, is 36, which is a drop from the previous 49. Even the Depakote has been adjusted, we leave this unchanged for now. I changed BuSpar to schedule trazodone 12.5 mg at 9:00 a.m. and 2 p.m. to help with the anxiety, agitation, impulse control. Maintain the rest unchanged. Reviewed drug interactions, risk/benefit ratio favors no further change. MAN Juanita MYLES MD DR: TONO/ugo JOB#: [id number] / [id number]
[2016-12-28 16:09] VITALS: BP 95/63
[2016-12-28] MEDS: MIRTAZAPINE 30 MG TABLET PO SCH (19:24)
[2016-12-28] MEDS: ENOXAPARIN 40 MG/0.4 ML DISP.SYRIN. SQ SCH (19:25)
[2016-12-28] MEDS: traZODone 50 MG TABLET. PO PRN (19:26)
--- NOTE | 2016-12-28 20:57 | PDOC ---
Exam Gerardo Demential Exam: Gerardo Note: Please also refer to the separate dictated note~for this date of service dictated separately.~Patient seen individually. Discussed the patient with Nursing staff reviewed the chart.~Reviewed interim history and current functioning. Reviewed vital signs,~Labs/ Radiology~and current medications noted below. Continue current treatment with the changes noted in the dictated addendum note Assessment: Vital Signs: Vital Signs Date Time Temp Pulse Resp B/P (MAP) Pulse Ox O2 Delivery O2 Flow Rate FiO2 12/28/16 20:24 18 95 Room Air 12/28/16 16:09 97.2 68 95/63 (74) I&O Intake and Output 12/29/16 07:00 Intake Total 920 ml Balance 920 ml Intake Oral 920 ml Current Medications: Meds: Current Medications Alprazolam (Xanax) 0.25 mg PRN Q4HRS PRN PO ANXIETY / AGITATION Last administered on 12/22/16 15:28; Start 12/10/16 at 20:15 Alprazolam (Xanax) 0.5 mg DAILY PO Last administered on 12/28/16 07:51; Start 12/11/16 at 09:00 Bupropion HCl (Wellbutrin Sr) 150 mg BID PO Last administered on 12/11/16 07:45 ; Start 12/10/16 at 21:00; Stop 12/11/16 at 18:54; Status DC Divalproex Sodium (Depakote Sprinkles) 500 mg BID PO Last administered on 19:23; Start 12/10/16 at 21:00 Donepezil HCl (Aricept) 20 mg DAILY PO Last administered on 12/12/16 07:18; Start 12/11/16 at 09:00; Stop 12/12/16 at 18:35; Status DC Mirtazapine (Remeron) 30 mg QHS PO Last administered on 12/28/16 19:24; Start 12/10/16 at 21:00 Quetiapine Fumarate (SEROquel) 50 mg TID PO Last administered on 12/16/16 07: 47; Start 12/10/16 at 21:00; Stop 12/16/16 at 11:04; Status DC Divalproex Sodium (Depakote Sprinkles) 250 mg DAILY@1200 PO Last administered on 12/28/16 12:13; Start 12/11/16 at 12:00 Acetaminophen (Tylenol) 60 mg PRN Q6HRS PRN PO PAIN / TEMP; Start 12/10/16 at 21 :45; Stop 12/12/16 at 12:05; Status DC Aspirin (Aspirin Enteric Coated) 81 mg DAILY PO Last administered on 12/28/16 07:48; Start 12/11/16 at 09:00 Bisacodyl (Dulcolax Supp) 10 mg PRN DAILY PRN RC CONSTIPATION Last administered on 12/19/16 22:52; Start 12/10/16 at 21:45 Magnesium Hydroxide (Milk Of Magnesia) 2,400 mg PRN DAILY PRN PO CONSTIPATION Last administered on 12/14/16 19:15; Start 12/10/16 at 21:45 Polyethylene Glycol (miraLAX) 17 gm PRN DAILY PRN PO CONSTIPATION Last administered on 12/20/16 08:07; Start 12/11/16 at 09:00; Stop 12/21/16 at 07:56 ; Status DC Senna/Docusate Sodium (Senna Plus) 1 tab DAILY PO Last administered on 07:49; Start 12/11/16 at 09:00 Tramadol HCl (Ultram) 50 mg TID PO Last administered on 12/28/16 19:24; Start 12/10/16 at 22:30 Metronidazole (Nydamax) 1 tiffanie PRN Q72HRS PRN TP APPLY TWICE WEEKLY NEEDED Last administered on 12/24/16 08:13; Start 12/10/16 at 22:15 Ondansetron HCl (Zofran Odt) 4 mg PRN Q8HRS PRN PO NAUSEA; Start 12/10/16 at 22: 15 Enoxaparin Sodium (Lovenox) 40 mg QHS SQ Last administered on 12/28/16 19:25; Start 12/10/16 at 22:30 Magnesium Oxide (Magnesium Oxide) 400 mg BID94 PO Last administered on 16:38; Start 12/11/16 at 16:00 Olanzapine (ZyPREXA ZYDIS) 2.5 mg PRN Q2HR PRN PO PSYCHOSIS Last administered on 12/25/16 13:27; Start 12/11/16 at 17:15 Citalopram Hydrobromide (CeleXA) 10 mg DAILY PO Last administered on 12/13/16 09:40; Start 12/12/16 at 09:00; Stop 12/13/16 at 18:43; Status DC Acetaminophen (Tylenol) 650 mg PRN Q6HRS PRN PO PAIN / TEMP Last administered on 12/14/16 19:39; Start 12/12/16 at 12:15 Carbidopa/Levodopa (Sinemet 25/100) 1 tab TID PO Last administered on 19:24; Start 12/12/16 at 21:00 Vitamin D (Vitamin D3) 50,000 unit WEEKLY PO Last administered on 12/28/16 07: 52; Start 12/14/16 at 09:00 Buspirone HCl (Buspar) 5 mg BID@0900,1300 PO Last administered on 12/16/16 07: 47; Start 12/14/16 at 09:00; Stop 12/16/16 at 12:00; Status DC Sertraline HCl (Zoloft) 50 mg DAILY PO Last administered on 12/16/16 07:47; Start 12/14/16 at 09:00; Stop 12/16/16 at 11:44; Status DC Magnesium Citrate (Citroma) 296 ml PRN 1X PRN PO CONSTIPATION; Start 12/14/16 at 17:30 Buspirone HCl (Buspar) 5 mg BID@0800,1200,1500 PO Last administered on 16:46; Start 12/16/16 at 12:00; Stop 12/26/16 at 18:41; Status DC Quetiapine Fumarate (SEROquel) 50 mg TID@0800,1200,1500 PO Last administered on 12/28/16 16:38; Start 12/16/16 at 12:00 Sertraline HCl (Zoloft) 50 mg DAILY PO Last administered on 12/21/16 08:16; Start 12/17/16 at 09:00; Stop 12/21/16 at 12:59; Status DC Trazodone HCl (Desyrel) 50 mg PRN QHS PRN PO INSOMNIA, MAY REPEAT X1 Last administered on 12/28/16 19:26; Start 12/17/16 at 18:15 Polyethylene Glycol (miraLAX) 17 gm DAILY PO Last administered on 12/28/16 07: 48; Start 12/21/16 at 08:10 Sertraline HCl (Zoloft) 75 mg DAILY PO Last administered on 12/28/16 07:48; Start 12/22/16 at 09:00 Trazodone HCl (Desyrel) 12.5 mg BID92 PO Last administered on 12/28/16 13:34; Start 12/27/16 at 09:00 Active Scripts Active Reported Trazodone Hcl 50 Mg Tablet 50 Mg PO PRN QHS PRN Buspirone Hcl 5 Mg Tablet 5 Mg PO TID 08 12 15 Zoloft (Sertraline Hcl) 50 Mg Tablet 75 Mg PO DAILY Zyprexa Zydis (Olanzapine) 5 Mg Tab.rapdis 2.5 Mg PO Magnesium Oxide 400 Mg Tablet 400 Mg PO BID94 Magnesium Citrate 296 Ml Solution 296 Ml PO PRN DAILY PRN D3-50 (Cholecalciferol (Vitamin D3)) 50,000 Unit Capsule 50,000 Unit PO WEEKLY Sinemet 25-100 Mg Tablet (Carbidopa/Levodopa) 1 Each Tablet 1 Tab PO TID Sulfacetamide-Sulfur 10-5% Crm (Sulfacetamide Sodium/Sulfur) 57 Gm Cream..g. 1 Tiffanie TP PRN DAILY PRN Metronidazole 60 Gm Gel..gram. 1 Tiffanie TP PRN TWICE WEEKLY Dulcolax (Bisacodyl) 10 Mg Supp.rect 10 Mg RC PRN DAILY PRN Miralax (Polyethylene Glycol 3350) 119 Gm Powder 17 Gm PO PRN DAILY PRN Zofran (Ondansetron Hcl) 4 Mg Tablet 4 Mg PO PRN Q8HRS PRN Milk Of Magnesia (Magnesium Hydroxide) 400 Mg/5 Ml Oral.susp 2,400 Mg PO PRN DAILY PRN Biofreeze (Menthol) 118 Ml Gel..ml. 1 Tiffanie TP PRN TID PRN Xanax (Alprazolam) 0.25 Mg Tablet 0.25 Mg PO PRN Q4HRS PRN Claritin (Loratadine) 10 Mg Tablet 10 Mg PO PRN DAILY PRN Maglox Liquid (Mag Hydrox/Al Hydrox/Simeth) 360 Ml Oral.susp 30 Ml PO PRN TID PRN Tylenol (Acetaminophen) 325 Mg Tablet 60 Mg PO PRN Q6HRS PRN Senna S Tablet (Sennosides/Docusate Sodium) 1 Each Tablet 1 Tab PO DAILY Xanax (Alprazolam) 0.5 Mg Tablet 0.5 Mg PO DAILY Tramadol Hcl (Tramadol HCl) 50 Mg Tablet 50 Mg PO TID Seroquel (Quetiapine Fumarate) 50 Mg Tablet 50 Mg PO TID Depakote Sprinkle (Divalproex Sodium) 125 Mg Cap.sprink 250 Mg PO DAILY@1200 Remeron (Mirtazapine) 30 Mg Tablet 30 Mg PO QHS Depakote Sprinkle (Divalproex Sodium) 125 Mg Cap.sprink 500 Mg PO BID Wellbutrin Sr (Bupropion Hcl) 150 Mg Tablet.er 150 Mg PO BID Aricept (Donepezil Hcl) 10 Mg Tablet 20 Mg PO DAILY Aspirin Ec (Aspirin) 81 Mg Tablet.dr 81 Mg PO DAILY Diagnosis: Problems: (1) Anxiety disorder (2) Dementia in Alzheimer's disease with delusions (3) Dementia in Alzheimer's disease with depression (4) Dementia, vascular, with delusions (5) Dementia, vascular, with depression (6) Impulse control disorder TATIANNA MYLES MD Dec 28, 2016 20:57
[2016-12-29 06:25] VITALS: BP 116/73
[2016-12-29] MEDS: MAGNESIUM OXIDE 400 MG TABLET PO SCH ×2 (08:03→15:27)
[2016-12-29] MEDS: QUEtiapine 50 MG TABLET. PO SCH ×3 (08:03→15:29)
[2016-12-29] MEDS: ALPRAZolam 0.5 MG TABLET PO SCH (08:03)
[2016-12-29] MEDS: traZODone 50 MG TABLET. PO SCH ×2 (08:05→15:29)
[2016-12-29] MEDS: DIVALPROEX 125 MG CAP.SPRINK PO SCH ×3 (08:05→19:24)
[2016-12-29] MEDS: CARBIDOPA/LEVODOPA 25/100MG TABLET PO SCH ×3 (08:05→19:24)
[2016-12-29] MEDS: SENNOSIDES/DOCUSATE 8.6/50MG TABLET. PO SCH (08:06)
[2016-12-29] MEDS: POLYETHYLENE GLYCOL 3350 17 GM PACKET. PO SCH (08:06)
[2016-12-29] MEDS: SERTRALINE 25 MG TABLET. PO SCH (08:06)
[2016-12-29] MEDS: ASPIRIN ENTERIC COATED 81 MG TABLET.DR. PO SCH (08:06)
[2016-12-29] MEDS: traMADol 50 MG TABLET PO SCH ×3 (08:06→19:26)
[2016-12-29 16:15] VITALS: BP 132/75
--- NOTE | 2016-12-29 17:21 | PN ---
DATE: 12/27/2016 This is a late entry for 12/27/2016 and covers the elements not covered in my initial note of 12/27/2016. HISTORY OF PRESENT ILLNESS: I met with the patient evening of 12/27/2016. Previous evening, the patient was combative after dinner. During the day on 12/27/2016, he has been calmer, compliant, but on evening of 12/27/2016, he is trying to walk out of his room unassisted oblivious that he is a significant fall risk. Nursing staff had to melgar to hold on to him. REVIEW OF SYSTEMS: Ambulation impaired. No CV, , pulmonary, eye system symptoms on review. Reliability poor. He is not forthcoming. When questioned many of his responses did use rather than direct responses by him on review of system symptoms. No CV, , eye, ENT system symptoms on review. MENTAL STATUS EXAM: Oriented to himself. Insight, judgment, recent and remote memory, attention, concentration, fund of knowledge poor, consistent with his diagnosis mentioned in my initial note. PLAN: BuSpar was discontinued. He has been started on trazodone scheduled during the day for anxiety, mood lability. Maintain the rest of psychotropics. Reviewed drug interactions risk/benefit ratio favors no further change. TATIANNA MYLES MD DR: TONO/ugo JOB#: [id number] / [id number]
[2016-12-29] MEDS: ENOXAPARIN 40 MG/0.4 ML DISP.SYRIN. SQ SCH (19:24)
[2016-12-29] MEDS: traZODone 50 MG TABLET. PO PRN (19:26)
[2016-12-29] MEDS: MIRTAZAPINE 30 MG TABLET PO SCH (19:26)
--- NOTE | 2016-12-29 20:50 | PDOC ---
Exam Gerardo Demential Exam: Gerardo Note: Please also refer to the separate dictated note~for this date of service dictated separately.~Patient seen individually. Discussed the patient with Nursing staff reviewed the chart.~Reviewed interim history and current functioning. Reviewed vital signs,~Labs/ Radiology~and current medications noted below. Continue current treatment with the changes noted in the dictated addendum note Assessment: Vital Signs: Vital Signs Date Time Temp Pulse Resp B/P (MAP) Pulse Ox O2 Delivery O2 Flow Rate FiO2 12/29/16 20:26 18 96 Room Air 12/29/16 16:15 97.5 78 132/75 (94) I&O Intake and Output 12/30/16 06:59 Intake Total 600 ml Balance 600 ml Intake Oral 600 ml # Bowel Movements 2 Current Medications: Meds: Current Medications Alprazolam (Xanax) 0.25 mg PRN Q4HRS PRN PO ANXIETY / AGITATION Last administered on 12/22/16 15:28; Start 12/10/16 at 20:15 Alprazolam (Xanax) 0.5 mg DAILY PO Last administered on 12/29/16 08:03; Start 12/11/16 at 09:00 Bupropion HCl (Wellbutrin Sr) 150 mg BID PO Last administered on 12/11/16 07:45 ; Start 12/10/16 at 21:00; Stop 12/11/16 at 18:54; Status DC Divalproex Sodium (Depakote Sprinkles) 500 mg BID PO Last administered on 19:24; Start 12/10/16 at 21:00 Donepezil HCl (Aricept) 20 mg DAILY PO Last administered on 12/12/16 07:18; Start 12/11/16 at 09:00; Stop 12/12/16 at 18:35; Status DC Mirtazapine (Remeron) 30 mg QHS PO Last administered on 12/29/16 19:26; Start 12/10/16 at 21:00 Quetiapine Fumarate (SEROquel) 50 mg TID PO Last administered on 12/16/16 07: 47; Start 12/10/16 at 21:00; Stop 12/16/16 at 11:04; Status DC Divalproex Sodium (Depakote Sprinkles) 250 mg DAILY@1200 PO Last administered on 12/29/16 11:49; Start 12/11/16 at 12:00 Acetaminophen (Tylenol) 60 mg PRN Q6HRS PRN PO PAIN / TEMP; Start 12/10/16 at 21 :45; Stop 12/12/16 at 12:05; Status DC Aspirin (Aspirin Enteric Coated) 81 mg DAILY PO Last administered on 12/29/16 08:06; Start 12/11/16 at 09:00 Bisacodyl (Dulcolax Supp) 10 mg PRN DAILY PRN RC CONSTIPATION Last administered on 12/19/16 22:52; Start 12/10/16 at 21:45 Magnesium Hydroxide (Milk Of Magnesia) 2,400 mg PRN DAILY PRN PO CONSTIPATION Last administered on 12/14/16 19:15; Start 12/10/16 at 21:45 Polyethylene Glycol (miraLAX) 17 gm PRN DAILY PRN PO CONSTIPATION Last administered on 12/20/16 08:07; Start 12/11/16 at 09:00; Stop 12/21/16 at 07:56 ; Status DC Senna/Docusate Sodium (Senna Plus) 1 tab DAILY PO Last administered on 08:06; Start 12/11/16 at 09:00 Tramadol HCl (Ultram) 50 mg TID PO Last administered on 12/29/16 19:26; Start 12/10/16 at 22:30 Metronidazole (Nydamax) 1 tiffanie PRN Q72HRS PRN TP APPLY TWICE WEEKLY NEEDED Last administered on 12/24/16 08:13; Start 12/10/16 at 22:15 Ondansetron HCl (Zofran Odt) 4 mg PRN Q8HRS PRN PO NAUSEA; Start 12/10/16 at 22: 15 Enoxaparin Sodium (Lovenox) 40 mg QHS SQ Last administered on 12/29/16 19:24; Start 12/10/16 at 22:30 Magnesium Oxide (Magnesium Oxide) 400 mg BID94 PO Last administered on 15:27; Start 12/11/16 at 16:00 Olanzapine (ZyPREXA ZYDIS) 2.5 mg PRN Q2HR PRN PO PSYCHOSIS Last administered on 12/25/16 13:27; Start 12/11/16 at 17:15 Citalopram Hydrobromide (CeleXA) 10 mg DAILY PO Last administered on 12/13/16 09:40; Start 12/12/16 at 09:00; Stop 12/13/16 at 18:43; Status DC Acetaminophen (Tylenol) 650 mg PRN Q6HRS PRN PO PAIN / TEMP Last administered on 12/14/16 19:39; Start 12/12/16 at 12:15 Carbidopa/Levodopa (Sinemet 25/100) 1 tab TID PO Last administered on 19:24; Start 12/12/16 at 21:00 Vitamin D (Vitamin D3) 50,000 unit WEEKLY PO Last administered on 12/28/16 07: 52; Start 12/14/16 at 09:00 Buspirone HCl (Buspar) 5 mg BID@0900,1300 PO Last administered on 12/16/16 07: 47; Start 12/14/16 at 09:00; Stop 12/16/16 at 12:00; Status DC Sertraline HCl (Zoloft) 50 mg DAILY PO Last administered on 12/16/16 07:47; Start 12/14/16 at 09:00; Stop 12/16/16 at 11:44; Status DC Magnesium Citrate (Citroma) 296 ml PRN 1X PRN PO CONSTIPATION; Start 12/14/16 at 17:30 Buspirone HCl (Buspar) 5 mg BID@0800,1200,1500 PO Last administered on 16:46; Start 12/16/16 at 12:00; Stop 12/26/16 at 18:41; Status DC Quetiapine Fumarate (SEROquel) 50 mg TID@0800,1200,1500 PO Last administered on 12/29/16 15:29; Start 12/16/16 at 12:00 Sertraline HCl (Zoloft) 50 mg DAILY PO Last administered on 12/21/16 08:16; Start 12/17/16 at 09:00; Stop 12/21/16 at 12:59; Status DC Trazodone HCl (Desyrel) 50 mg PRN QHS PRN PO INSOMNIA, MAY REPEAT X1 Last administered on 12/29/16 19:26; Start 12/17/16 at 18:15 Polyethylene Glycol (miraLAX) 17 gm DAILY PO Last administered on 12/29/16 08: 06; Start 12/21/16 at 08:10 Sertraline HCl (Zoloft) 75 mg DAILY PO Last administered on 12/29/16 08:06; Start 12/22/16 at 09:00 Trazodone HCl (Desyrel) 12.5 mg BID92 PO Last administered on 12/29/16 15:29; Start 12/27/16 at 09:00 Active Scripts Active Reported Trazodone Hcl 50 Mg Tablet 50 Mg PO PRN QHS PRN Buspirone Hcl 5 Mg Tablet 5 Mg PO TID 08 12 15 Zoloft (Sertraline Hcl) 50 Mg Tablet 75 Mg PO DAILY Zyprexa Zydis (Olanzapine) 5 Mg Tab.rapdis 2.5 Mg PO Magnesium Oxide 400 Mg Tablet 400 Mg PO BID94 Magnesium Citrate 296 Ml Solution 296 Ml PO PRN DAILY PRN D3-50 (Cholecalciferol (Vitamin D3)) 50,000 Unit Capsule 50,000 Unit PO WEEKLY Sinemet 25-100 Mg Tablet (Carbidopa/Levodopa) 1 Each Tablet 1 Tab PO TID Sulfacetamide-Sulfur 10-5% Crm (Sulfacetamide Sodium/Sulfur) 57 Gm Cream..g. 1 Tiffanie TP PRN DAILY PRN Metronidazole 60 Gm Gel..gram. 1 Tiffanie TP PRN TWICE WEEKLY Dulcolax (Bisacodyl) 10 Mg Supp.rect 10 Mg RC PRN DAILY PRN Miralax (Polyethylene Glycol 3350) 119 Gm Powder 17 Gm PO PRN DAILY PRN Zofran (Ondansetron Hcl) 4 Mg Tablet 4 Mg PO PRN Q8HRS PRN Milk Of Magnesia (Magnesium Hydroxide) 400 Mg/5 Ml Oral.susp 2,400 Mg PO PRN DAILY PRN Biofreeze (Menthol) 118 Ml Gel..ml. 1 Tiffanie TP PRN TID PRN Xanax (Alprazolam) 0.25 Mg Tablet 0.25 Mg PO PRN Q4HRS PRN Claritin (Loratadine) 10 Mg Tablet 10 Mg PO PRN DAILY PRN Maglox Liquid (Mag Hydrox/Al Hydrox/Simeth) 360 Ml Oral.susp 30 Ml PO PRN TID PRN Tylenol (Acetaminophen) 325 Mg Tablet 60 Mg PO PRN Q6HRS PRN Senna S Tablet (Sennosides/Docusate Sodium) 1 Each Tablet 1 Tab PO DAILY Xanax (Alprazolam) 0.5 Mg Tablet 0.5 Mg PO DAILY Tramadol Hcl (Tramadol HCl) 50 Mg Tablet 50 Mg PO TID Seroquel (Quetiapine Fumarate) 50 Mg Tablet 50 Mg PO TID Depakote Sprinkle (Divalproex Sodium) 125 Mg Cap.sprink 250 Mg PO DAILY@1200 Remeron (Mirtazapine) 30 Mg Tablet 30 Mg PO QHS Depakote Sprinkle (Divalproex Sodium) 125 Mg Cap.sprink 500 Mg PO BID Wellbutrin Sr (Bupropion Hcl) 150 Mg Tablet.er 150 Mg PO BID Aricept (Donepezil Hcl) 10 Mg Tablet 20 Mg PO DAILY Aspirin Ec (Aspirin) 81 Mg Tablet.dr 81 Mg PO DAILY Diagnosis: Problems: (1) Anxiety disorder (2) Dementia in Alzheimer's disease with delusions (3) Dementia in Alzheimer's disease with depression (4) Dementia, vascular, with delusions (5) Dementia, vascular, with depression (6) Impulse control disorder TATIANNA MYLES MD Dec 29, 2016 20:50
--- NOTE | 2016-12-30 04:25 | PN ---
DATE: 12/28/2016 This late entry 12/28/2016 covers elements not covered in my initial note 12/28/2016. SUBJECTIVE: I met with the patient evening of 12/28/2016. The patient did well the previous evening and during the day 12/28/2016, he remains confused. REVIEW OF SYSTEMS: Ambulation impaired. No CV, , pulmonary, eye, ENT system symptoms on review. Reliability poor. MENTAL STATUS EXAM: Oriented to himself. Insight, judgment, recent and remote memory, attention, concentration, fund of knowledge poor, consistent with his diagnosis, quite pleasant, smiling as I met with him. LABORATORIES: Reviewed. IMPRESSION: Unchanged from initial note. PLAN: Continue current psychotropics, Zoloft, Depakote, Remeron, Seroquel, Xanax along with trazodone and Zyprexa p.r.n. Valproic acid level 12/26/2016 was 38, despite being subtherapeutic clinically seems adequate for now. Review drug contractions, risk/benefit ratio favors no further change. TATIANNA MYLES MD DR: TONO/ugo JOB#: [id number] / [id number]
[2016-12-30 06:01] VITALS: BP 99/64
[2016-12-30] MEDS: DIVALPROEX 125 MG CAP.SPRINK PO SCH ×3 (07:52→19:38)
[2016-12-30] MEDS: SERTRALINE 25 MG TABLET. PO SCH (07:52)
[2016-12-30] MEDS: SENNOSIDES/DOCUSATE 8.6/50MG TABLET. PO SCH (07:53)
[2016-12-30] MEDS: traZODone 50 MG TABLET. PO SCH ×2 (07:53→14:28)
[2016-12-30] MEDS: QUEtiapine 50 MG TABLET. PO SCH ×3 (07:53→14:29)
[2016-12-30] MEDS: ASPIRIN ENTERIC COATED 81 MG TABLET.DR. PO SCH (07:53)
[2016-12-30] MEDS: CARBIDOPA/LEVODOPA 25/100MG TABLET PO SCH ×3 (07:53→19:38)
[2016-12-30] MEDS: MAGNESIUM OXIDE 400 MG TABLET PO SCH ×2 (07:53→17:34)
[2016-12-30] MEDS: POLYETHYLENE GLYCOL 3350 17 GM PACKET. PO SCH (07:53)
[2016-12-30] MEDS: traMADol 50 MG TABLET PO SCH ×3 (07:55→19:40)
[2016-12-30] MEDS: ALPRAZolam 0.5 MG TABLET PO SCH (07:55)
[2016-12-30 09:24] LABS: BASO % 1 % (0-3); EOS # 0.2 x10^3/uL (0.0-0.7); EOS % 3 % (0-3); HEMATOCRIT 38.4 % (39.0-53.0); HEMOGLOBIN 12.9 g/dL (13.0-17.5); LYMPH # 1.9 x10^3/uL (1.0-4.8); LYMPH % 29 % (24-48); MEAN CORPUSCULAR HEMOGLOBIN 32 pg (25-35); MEAN CORPUSCULAR HGB CONC 34 g/dL (31-37); MEAN CORPUSCULAR VOLUME 94 fL (79-100); MONO # 0.7 x10^3/uL (0.0-1.1); MONO % 11 % (0-9); NEUT # 3.7 x10^3uL (1.8-7.7); NEUT % 57 % (31-73); PLATELET COUNT 197 x10^3/uL (140-400); RED CELL DISTRIBUTION WIDTH 14.8 % (11.5-14.5); WHITE BLOOD COUNT 6.6 x10^3/uL (4.0-11.0)
[2016-12-30 09:44] LABS: ALBUMIN 2.9 g/dL (3.4-5.0); ALBUMIN/GLOBULIN RATIO 0.8 (1.0-1.7); ALK PHOS 58 U/L (46-116); ALT (SGPT) 15 U/L (16-63); ANION GAP 6 (6-14); AST (SGOT) 18 U/L (15-37); BLOOD UREA NITROGEN 17 mg/dL (8-26); BUN/CREATININE RATIO 17 (6-20); CARBON DIOXIDE 32 mmol/L (21-32); CHLORIDE 103 mmol/L (98-107); GLUCOSE 95 mg/dL (70-99); MAGNESIUM 1.9 mg/dL (1.8-2.4); POTASSIUM 4.5 mmol/L (3.5-5.1); SODIUM 141 mmol/L (136-145); TOTAL BILIRUBIN 0.4 mg/dL (0.2-1.0); TOTAL PROTEIN 6.4 g/dL (6.4-8.2)
[2016-12-30 09:46] LABS: VAL ACID 55 mcg/mL (50-100)
[2016-12-30 16:08] VITALS: BP 95/64
[2016-12-30] MEDS: MIRTAZAPINE 30 MG TABLET PO SCH (19:38)
[2016-12-30] MEDS: ENOXAPARIN 40 MG/0.4 ML DISP.SYRIN. SQ SCH (19:39)
--- NOTE | 2016-12-30 20:47 | PDOC ---
Exam Gerardo Demential Exam: Gerardo Note: Please also refer to the separate dictated note~for this date of service dictated separately.~Patient seen individually. Discussed the patient with Nursing staff reviewed the chart.~Reviewed interim history and current functioning. Reviewed vital signs,~Labs/ Radiology~and current medications noted below. Continue current treatment with the changes noted in the dictated addendum note Assessment: Vital Signs: Vital Signs Date Time Temp Pulse Resp B/P (MAP) Pulse Ox O2 Delivery O2 Flow Rate FiO2 12/30/16 19:40 95 Room Air 12/30/16 16:08 98.0 83 20 95/64 (74) I&O Intake and Output 12/31/16 07:00 Intake Total 300 ml Balance 300 ml Intake Oral 300 ml Labs: Laboratory Tests Test 12/30/16 09:11 White Blood Count 6.6 x10^3/uL (4.0-11.0) # Red Blood Count 4.10 x10^6/uL (4.30-5.70) L Hemoglobin 12.9 g/dL (13.0-17.5) L Hematocrit 38.4 % (39.0-53.0) L Mean Corpuscular Volume 94 fL (79-100) Mean Corpuscular Hemoglobin 32 pg (25-35) Mean Corpuscular Hemoglobin Concent 34 g/dL (31-37) Red Cell Distribution Width 14.8 % (11.5-14.5) H Platelet Count 197 x10^3/uL (140-400) Neutrophils (%) (Auto) 57 % (31-73) Lymphocytes (%) (Auto) 29 % (24-48) Monocytes (%) (Auto) 11 % (0-9) H Eosinophils (%) (Auto) 3 % (0-3) Basophils (%) (Auto) 1 % (0-3) Neutrophils # (Auto) 3.7 x10^3uL (1.8-7.7) Lymphocytes # (Auto) 1.9 x10^3/uL (1.0-4.8) Monocytes # (Auto) 0.7 x10^3/uL (0.0-1.1) Eosinophils # (Auto) 0.2 x10^3/uL (0.0-0.7) Basophils # (Auto) 0.0 x10^3/uL (0.0-0.2) Sodium Level 141 mmol/L (136-145) Potassium Level 4.5 mmol/L (3.5-5.1) Chloride Level 103 mmol/L (98-107) Carbon Dioxide Level 32 mmol/L (21-32) Anion Gap 6 (6-14) Blood Urea Nitrogen 17 mg/dL (8-26) Creatinine 1.0 mg/dL (0.7-1.3) Estimated GFR (Cockcroft-Gault) 73.0 BUN/Creatinine Ratio 17 (6-20) Glucose Level 95 mg/dL (70-99) Calcium Level 9.0 mg/dL (8.5-10.1) Magnesium Level 1.9 mg/dL (1.8-2.4) Total Bilirubin 0.4 mg/dL (0.2-1.0) Aspartate Amino Transferase (AST) 18 U/L (15-37) Alanine Aminotransferase (ALT) 15 U/L (16-63) L Alkaline Phosphatase 58 U/L (46-116) Total Protein 6.4 g/dL (6.4-8.2) Albumin 2.9 g/dL (3.4-5.0) L Albumin/Globulin Ratio 0.8 (1.0-1.7) L Valproic Acid Level 55 mcg/mL (50-100) Valproic Acid Last Dose Date 12/29/2016 Valproic Acid Last Dose Time 2100 Current Medications: Meds: Current Medications Alprazolam (Xanax) 0.25 mg PRN Q4HRS PRN PO ANXIETY / AGITATION Last administered on 12/22/16 15:28; Start 12/10/16 at 20:15 Alprazolam (Xanax) 0.5 mg DAILY PO Last administered on 12/30/16 07:55; Start 12/11/16 at 09:00 Bupropion HCl (Wellbutrin Sr) 150 mg BID PO Last administered on 12/11/16 07:45 ; Start 12/10/16 at 21:00; Stop 12/11/16 at 18:54; Status DC Divalproex Sodium (Depakote Sprinkles) 500 mg BID PO Last administered on 19:38; Start 12/10/16 at 21:00 Donepezil HCl (Aricept) 20 mg DAILY PO Last administered on 12/12/16 07:18; Start 12/11/16 at 09:00; Stop 12/12/16 at 18:35; Status DC Mirtazapine (Remeron) 30 mg QHS PO Last administered on 12/30/16 19:38; Start 12/10/16 at 21:00 Quetiapine Fumarate (SEROquel) 50 mg TID PO Last administered on 12/16/16 07: 47; Start 12/10/16 at 21:00; Stop 12/16/16 at 11:04; Status DC Divalproex Sodium (Depakote Sprinkles) 250 mg DAILY@1200 PO Last administered on 12/30/16 11:42; Start 12/11/16 at 12:00 Acetaminophen (Tylenol) 60 mg PRN Q6HRS PRN PO PAIN / TEMP; Start 12/10/16 at 21 :45; Stop 12/12/16 at 12:05; Status DC Aspirin (Aspirin Enteric Coated) 81 mg DAILY PO Last administered on 12/30/16 07:53; Start 12/11/16 at 09:00 Bisacodyl (Dulcolax Supp) 10 mg PRN DAILY PRN RC CONSTIPATION Last administered on 12/19/16 22:52; Start 12/10/16 at 21:45 Magnesium Hydroxide (Milk Of Magnesia) 2,400 mg PRN DAILY PRN PO CONSTIPATION Last administered on 12/14/16 19:15; Start 12/10/16 at 21:45 Polyethylene Glycol (miraLAX) 17 gm PRN DAILY PRN PO CONSTIPATION Last administered on 12/20/16 08:07; Start 12/11/16 at 09:00; Stop 12/21/16 at 07:56 ; Status DC Senna/Docusate Sodium (Senna Plus) 1 tab DAILY PO Last administered on 07:53; Start 12/11/16 at 09:00 Tramadol HCl (Ultram) 50 mg TID PO Last administered on 12/30/16 19:40; Start 12/10/16 at 22:30 Metronidazole (Nydamax) 1 tiffanie PRN Q72HRS PRN TP APPLY TWICE WEEKLY NEEDED Last administered on 12/24/16 08:13; Start 12/10/16 at 22:15 Ondansetron HCl (Zofran Odt) 4 mg PRN Q8HRS PRN PO NAUSEA; Start 12/10/16 at 22: 15 Enoxaparin Sodium (Lovenox) 40 mg QHS SQ Last administered on 12/30/16 19:39; Start 12/10/16 at 22:30 Magnesium Oxide (Magnesium Oxide) 400 mg BID94 PO Last administered on 17:34; Start 12/11/16 at 16:00 Olanzapine (ZyPREXA ZYDIS) 2.5 mg PRN Q2HR PRN PO PSYCHOSIS Last administered on 12/25/16 13:27; Start 12/11/16 at 17:15 Citalopram Hydrobromide (CeleXA) 10 mg DAILY PO Last administered on 12/13/16 09:40; Start 12/12/16 at 09:00; Stop 12/13/16 at 18:43; Status DC Acetaminophen (Tylenol) 650 mg PRN Q6HRS PRN PO PAIN / TEMP Last administered on 12/14/16 19:39; Start 12/12/16 at 12:15 Carbidopa/Levodopa (Sinemet 25/100) 1 tab TID PO Last administered on 19:38; Start 12/12/16 at 21:00 Vitamin D (Vitamin D3) 50,000 unit WEEKLY PO Last administered on 12/28/16 07: 52; Start 12/14/16 at 09:00 Buspirone HCl (Buspar) 5 mg BID@0900,1300 PO Last administered on 12/16/16 07: 47; Start 12/14/16 at 09:00; Stop 12/16/16 at 12:00; Status DC Sertraline HCl (Zoloft) 50 mg DAILY PO Last administered on 12/16/16 07:47; Start 12/14/16 at 09:00; Stop 12/16/16 at 11:44; Status DC Magnesium Citrate (Citroma) 296 ml PRN 1X PRN PO CONSTIPATION; Start 12/14/16 at 17:30 Buspirone HCl (Buspar) 5 mg BID@0800,1200,1500 PO Last administered on 16:46; Start 12/16/16 at 12:00; Stop 12/26/16 at 18:41; Status DC Quetiapine Fumarate (SEROquel) 50 mg TID@0800,1200,1500 PO Last administered on 12/30/16 14:29; Start 12/16/16 at 12:00 Sertraline HCl (Zoloft) 50 mg DAILY PO Last administered on 12/21/16 08:16; Start 12/17/16 at 09:00; Stop 12/21/16 at 12:59; Status DC Trazodone HCl (Desyrel) 50 mg PRN QHS PRN PO INSOMNIA, MAY REPEAT X1 Last administered on 12/29/16 19:26; Start 12/17/16 at 18:15 Polyethylene Glycol (miraLAX) 17 gm DAILY PO Last administered on 12/30/16 07: 53; Start 12/21/16 at 08:10 Sertraline HCl (Zoloft) 75 mg DAILY PO Last administered on 12/30/16 07:52; Start 12/22/16 at 09:00 Trazodone HCl (Desyrel) 12.5 mg BID92 PO Last administered on 12/30/16 14:28; Start 12/27/16 at 09:00 Active Scripts Active Reported Trazodone Hcl 50 Mg Tablet 50 Mg PO PRN QHS PRN Buspirone Hcl 5 Mg Tablet 5 Mg PO TID 08 12 15 Zoloft (Sertraline Hcl) 50 Mg Tablet 75 Mg PO DAILY Zyprexa Zydis (Olanzapine) 5 Mg Tab.rapdis 2.5 Mg PO Magnesium Oxide 400 Mg Tablet 400 Mg PO BID94 Magnesium Citrate 296 Ml Solution 296 Ml PO PRN DAILY PRN D3-50 (Cholecalciferol (Vitamin D3)) 50,000 Unit Capsule 50,000 Unit PO WEEKLY Sinemet 25-100 Mg Tablet (Carbidopa/Levodopa) 1 Each Tablet 1 Tab PO TID Sulfacetamide-Sulfur 10-5% Crm (Sulfacetamide Sodium/Sulfur) 57 Gm Cream..g. 1 Tiffanie TP PRN DAILY PRN Metronidazole 60 Gm Gel..gram. 1 Tiffanie TP PRN TWICE WEEKLY Dulcolax (Bisacodyl) 10 Mg Supp.rect 10 Mg RC PRN DAILY PRN Miralax (Polyethylene Glycol 3350) 119 Gm Powder 17 Gm PO PRN DAILY PRN Zofran (Ondansetron Hcl) 4 Mg Tablet 4 Mg PO PRN Q8HRS PRN Milk Of Magnesia (Magnesium Hydroxide) 400 Mg/5 Ml Oral.susp 2,400 Mg PO PRN DAILY PRN Biofreeze (Menthol) 118 Ml Gel..ml. 1 Tiffanie TP PRN TID PRN Xanax (Alprazolam) 0.25 Mg Tablet 0.25 Mg PO PRN Q4HRS PRN Claritin (Loratadine) 10 Mg Tablet 10 Mg PO PRN DAILY PRN Maglox Liquid (Mag Hydrox/Al Hydrox/Simeth) 360 Ml Oral.susp 30 Ml PO PRN TID PRN Tylenol (Acetaminophen) 325 Mg Tablet 60 Mg PO PRN Q6HRS PRN Senna S Tablet (Sennosides/Docusate Sodium) 1 Each Tablet 1 Tab PO DAILY Xanax (Alprazolam) 0.5 Mg Tablet 0.5 Mg PO DAILY Tramadol Hcl (Tramadol HCl) 50 Mg Tablet 50 Mg PO TID Seroquel (Quetiapine Fumarate) 50 Mg Tablet 50 Mg PO TID Depakote Sprinkle (Divalproex Sodium) 125 Mg Cap.sprink 250 Mg PO DAILY@1200 Remeron (Mirtazapine) 30 Mg Tablet 30 Mg PO QHS Depakote Sprinkle (Divalproex Sodium) 125 Mg Cap.sprink 500 Mg PO BID Wellbutrin Sr (Bupropion Hcl) 150 Mg Tablet.er 150 Mg PO BID Aricept (Donepezil Hcl) 10 Mg Tablet 20 Mg PO DAILY Aspirin Ec (Aspirin) 81 Mg Tablet.dr 81 Mg PO DAILY Diagnosis: Problems: (1) Anxiety disorder (2) Dementia in Alzheimer's disease with delusions (3) Dementia in Alzheimer's disease with depression (4) Dementia, vascular, with delusions (5) Dementia, vascular, with depression (6) Impulse control disorder TATIANNA MYLES MD Dec 30, 2016 20:47
[2016-12-31] MEDS ORDERED: TRAZ50TA15 PO (00:02)
[2016-12-31 06:16] VITALS: BP 121/57
--- NOTE | 2016-12-31 06:53 | PN ---
DATE: 12/29/2016 PSYCHIATRIC PROGRESS NOTE This late entry 12/29/2016, covers elements not covered in my initial note 12/29/2016. I met with the patient the evening of 12/29/2016. He remains confused, but has not been agitated, aggressive, needs help with feeding. REVIEW OF SYSTEMS: Ambulation impaired, in a Broda chair. No CV, , pulmonary, eye, ENT system symptoms on review. Reliability poor. MENTAL STATUS EXAM: Oriented to himself. Insight, judgment, recent and remote memory, attention, concentration, fund of knowledge, consistent with his diagnosis mentioned in my initial note. PLAN: Continue current psychotropics. Adjust as clinically indicated. TATIANNA MYLES MD DR: TONO/ugo JOB#: [id number] / [id number]
[2016-12-31] MEDS: ASPIRIN ENTERIC COATED 81 MG TABLET.DR. PO SCH (08:06)
[2016-12-31] MEDS: POLYETHYLENE GLYCOL 3350 17 GM PACKET. PO SCH (08:06)
[2016-12-31] MEDS: SENNOSIDES/DOCUSATE 8.6/50MG TABLET. PO SCH (08:07)
[2016-12-31] MEDS: SERTRALINE 25 MG TABLET. PO SCH (08:07)
[2016-12-31] MEDS: CARBIDOPA/LEVODOPA 25/100MG TABLET PO SCH (08:07)
[2016-12-31] MEDS: traZODone 50 MG TABLET. PO SCH (08:07)
[2016-12-31] MEDS: DIVALPROEX 125 MG CAP.SPRINK PO SCH (08:07)
[2016-12-31] MEDS: MAGNESIUM OXIDE 400 MG TABLET PO SCH (08:07)
[2016-12-31] MEDS: QUEtiapine 50 MG TABLET. PO SCH (08:07)
[2016-12-31] MEDS: traMADol 50 MG TABLET PO SCH (08:09)
[2016-12-31] MEDS: ALPRAZolam 0.5 MG TABLET PO SCH (08:09)
--- NOTE | 2016-12-31 18:37 | PDOC ---
Exam Gerardo Demential Exam: Gerardo Note: Please also refer to the separate dictated note~for this date of service dictated separately.~Patient seen individually. Discussed the patient with Nursing staff reviewed the chart.~Reviewed interim history and current functioning. Reviewed vital signs,~Labs/ Radiology~and current medications noted below. Continue current treatment with the changes noted in the dictated addendum note Assessment: Vital Signs: Vital Signs Date Time Temp Pulse Resp B/P (MAP) Pulse Ox O2 Delivery O2 Flow Rate FiO2 12/31/16 09:45 95 12/31/16 06:16 97.7 51 16 121/57 (78) 12/30/16 20:40 Room Air I&O Intake and Output 01/01/17 07:00 Intake Total 360 ml Balance 360 ml Intake Oral 360 ml Current Medications: Meds: Current Medications Alprazolam (Xanax) 0.25 mg PRN Q4HRS PRN PO ANXIETY / AGITATION Last administered on 12/22/16 15:28; Start 12/10/16 at 20:15; Stop 12/31/16 at 11:14 ; Status DC Alprazolam (Xanax) 0.5 mg DAILY PO Last administered on 12/31/16 08:09; Start 12/11/16 at 09:00; Stop 12/31/16 at 11:14; Status DC Bupropion HCl (Wellbutrin Sr) 150 mg BID PO Last administered on 12/11/16 07:45 ; Start 12/10/16 at 21:00; Stop 12/11/16 at 18:54; Status DC Divalproex Sodium (Depakote Sprinkles) 500 mg BID PO Last administered on 08:07; Start 12/10/16 at 21:00; Stop 12/31/16 at 11:14; Status DC Donepezil HCl (Aricept) 20 mg DAILY PO Last administered on 12/12/16 07:18; Start 12/11/16 at 09:00; Stop 12/12/16 at 18:35; Status DC Mirtazapine (Remeron) 30 mg QHS PO Last administered on 12/30/16 19:38; Start 12/10/16 at 21:00; Stop 12/31/16 at 11:14; Status DC Quetiapine Fumarate (SEROquel) 50 mg TID PO Last administered on 12/16/16 07: 47; Start 12/10/16 at 21:00; Stop 12/16/16 at 11:04; Status DC Divalproex Sodium (Depakote Sprinkles) 250 mg DAILY@1200 PO Last administered on 12/30/16 11:42; Start 12/11/16 at 12:00; Stop 12/31/16 at 11:14; Status DC Acetaminophen (Tylenol) 60 mg PRN Q6HRS PRN PO PAIN / TEMP; Start 12/10/16 at 21 :45; Stop 12/12/16 at 12:05; Status DC Aspirin (Aspirin Enteric Coated) 81 mg DAILY PO Last administered on 12/31/16 08:06; Start 12/11/16 at 09:00; Stop 12/31/16 at 11:14; Status DC Bisacodyl (Dulcolax Supp) 10 mg PRN DAILY PRN RC CONSTIPATION Last administered on 12/19/16 22:52; Start 12/10/16 at 21:45; Stop 12/31/16 at 11:14 ; Status DC Magnesium Hydroxide (Milk Of Magnesia) 2,400 mg PRN DAILY PRN PO CONSTIPATION Last administered on 12/14/16 19:15; Start 12/10/16 at 21:45; Stop 12/31/16 at 11:14; Status DC Polyethylene Glycol (miraLAX) 17 gm PRN DAILY PRN PO CONSTIPATION Last administered on 12/20/16 08:07; Start 12/11/16 at 09:00; Stop 12/21/16 at 07:56 ; Status DC Senna/Docusate Sodium (Senna Plus) 1 tab DAILY PO Last administered on 08:07; Start 12/11/16 at 09:00; Stop 12/31/16 at 11:14; Status DC Tramadol HCl (Ultram) 50 mg TID PO Last administered on 12/31/16 08:09; Start 12/10/16 at 22:30; Stop 12/31/16 at 11:14; Status DC Metronidazole (Nydamax) 1 tiffanie PRN Q72HRS PRN TP APPLY TWICE WEEKLY NEEDED Last administered on 12/24/16 08:13; Start 12/10/16 at 22:15; Stop 12/31/16 at 11:14; Status DC Ondansetron HCl (Zofran Odt) 4 mg PRN Q8HRS PRN PO NAUSEA; Start 12/10/16 at 22: 15; Stop 12/31/16 at 11:14; Status DC Enoxaparin Sodium (Lovenox) 40 mg QHS SQ Last administered on 12/30/16 19:39; Start 12/10/16 at 22:30; Stop 12/31/16 at 11:14; Status DC Magnesium Oxide (Magnesium Oxide) 400 mg BID94 PO Last administered on 08:07; Start 12/11/16 at 16:00; Stop 12/31/16 at 11:14; Status DC Olanzapine (ZyPREXA ZYDIS) 2.5 mg PRN Q2HR PRN PO PSYCHOSIS Last administered on 12/25/16 13:27; Start 12/11/16 at 17:15; Stop 12/31/16 at 11:14; Status DC Citalopram Hydrobromide (CeleXA) 10 mg DAILY PO Last administered on 12/13/16 09:40; Start 12/12/16 at 09:00; Stop 12/13/16 at 18:43; Status DC Acetaminophen (Tylenol) 650 mg PRN Q6HRS PRN PO PAIN / TEMP Last administered on 12/14/16 19:39; Start 12/12/16 at 12:15; Stop 12/31/16 at 11:14; Status DC Carbidopa/Levodopa (Sinemet 25/100) 1 tab TID PO Last administered on 08:07; Start 12/12/16 at 21:00; Stop 12/31/16 at 11:14; Status DC Vitamin D (Vitamin D3) 50,000 unit WEEKLY PO Last administered on 12/28/16 07: 52; Start 12/14/16 at 09:00; Stop 12/31/16 at 11:14; Status DC Buspirone HCl (Buspar) 5 mg BID@0900,1300 PO Last administered on 12/16/16 07: 47; Start 12/14/16 at 09:00; Stop 12/16/16 at 12:00; Status DC Sertraline HCl (Zoloft) 50 mg DAILY PO Last administered on 12/16/16 07:47; Start 12/14/16 at 09:00; Stop 12/16/16 at 11:44; Status DC Magnesium Citrate (Citroma) 296 ml PRN 1X PRN PO CONSTIPATION; Start 12/14/16 at 17:30; Stop 12/31/16 at 11:14; Status DC Buspirone HCl (Buspar) 5 mg BID@0800,1200,1500 PO Last administered on 16:46; Start 12/16/16 at 12:00; Stop 12/26/16 at 18:41; Status DC Quetiapine Fumarate (SEROquel) 50 mg TID@0800,1200,1500 PO Last administered on 12/31/16 08:07; Start 12/16/16 at 12:00; Stop 12/31/16 at 11:14; Status DC Sertraline HCl (Zoloft) 50 mg DAILY PO Last administered on 12/21/16 08:16; Start 12/17/16 at 09:00; Stop 12/21/16 at 12:59; Status DC Trazodone HCl (Desyrel) 50 mg PRN QHS PRN PO INSOMNIA, MAY REPEAT X1 Last administered on 12/29/16 19:26; Start 12/17/16 at 18:15; Stop 12/31/16 at 11:14 ; Status DC Polyethylene Glycol (miraLAX) 17 gm DAILY PO Last administered on 12/31/16 08: 06; Start 12/21/16 at 08:10; Stop 12/31/16 at 11:14; Status DC Sertraline HCl (Zoloft) 75 mg DAILY PO Last administered on 12/31/16 08:07; Start 12/22/16 at 09:00; Stop 12/31/16 at 11:14; Status DC Trazodone HCl (Desyrel) 12.5 mg BID92 PO Last administered on 12/31/16 08:07; Start 12/27/16 at 09:00; Stop 12/31/16 at 11:14; Status DC Active Scripts Active Reported Trazodone Hcl 50 Mg Tablet 12.5 Mg PO BID92 Trazodone Hcl 50 Mg Tablet 50 Mg PO PRN QHS PRN Zoloft (Sertraline Hcl) 50 Mg Tablet 75 Mg PO DAILY Zyprexa Zydis (Olanzapine) 5 Mg Tab.rapdis 2.5 Mg PO PRN Q2HR PRN Magnesium Oxide 400 Mg Tablet 400 Mg PO BID94 D3-50 (Cholecalciferol (Vitamin D3)) 50,000 Unit Capsule 50,000 Unit PO WEEKLY Every Tuesday Sinemet 25-100 Mg Tablet (Carbidopa/Levodopa) 1 Each Tablet 1 Tab PO TID Metronidazole 60 Gm Gel..gram. 1 Tiffanie TP PRN TWICE WEEKLY Dulcolax (Bisacodyl) 10 Mg Supp.rect 10 Mg RC PRN DAILY PRN Miralax (Polyethylene Glycol 3350) 119 Gm Powder 17 Gm PO DAILY Zofran (Ondansetron Hcl) 4 Mg Tablet 4 Mg PO PRN Q8HRS PRN Milk Of Magnesia (Magnesium Hydroxide) 400 Mg/5 Ml Oral.susp 2,400 Mg PO PRN DAILY PRN Biofreeze (Menthol) 118 Ml Gel..ml. 1 Tiffanie TP PRN TID PRN Xanax (Alprazolam) 0.25 Mg Tablet 0.25 Mg PO PRN Q4HRS PRN Tylenol (Acetaminophen) 325 Mg Tablet 60 Mg PO PRN Q6HRS PRN Senna S Tablet (Sennosides/Docusate Sodium) 1 Each Tablet 1 Tab PO DAILY Xanax (Alprazolam) 0.5 Mg Tablet 0.5 Mg PO DAILY Tramadol Hcl (Tramadol HCl) 50 Mg Tablet 50 Mg PO TID Seroquel (Quetiapine Fumarate) 50 Mg Tablet 50 Mg PO TID 08 12 15 Depakote Sprinkle (Divalproex Sodium) 125 Mg Cap.sprink 250 Mg PO DAILY@1200 Remeron (Mirtazapine) 30 Mg Tablet 30 Mg PO QHS Depakote Sprinkle (Divalproex Sodium) 125 Mg Cap.sprink 500 Mg PO BID Aspirin Ec (Aspirin) 81 Mg Tablet.dr 81 Mg PO DAILY Diagnosis: Problems: (1) Impulse control disorder (2) Dementia, vascular, with depression (3) Dementia, vascular, with delusions (4) Dementia in Alzheimer's disease with depression (5) Dementia in Alzheimer's disease with delusions (6) Anxiety disorder TATIANNA MYLES MD Dec 31, 2016 18:37
--- NOTE | 2017-01-01 04:26 | PN ---
DATE: 12/30/2016 This late entry for 12/30/2016 covers elements not covered in my initial note of 12/30/2016. SUBJECTIVE: I met with the patient in the evening of 12/30/2016, staffed at treatment team meeting with the entire team morning of 12/30/2016. Overall, the patient remains confused, has not been agitated, aggressive. His sleep is fair. REVIEW OF SYSTEMS: No CV, , pulmonary, eye, ENT system symptoms on review. He is in a Broda chair. MENTAL STATUS EXAM: Oriented to himself, not very verbal, but otherwise pleasant, oblivious of his surroundings. Insight, judgment, recent and remote memory, attention, concentration, fund of knowledge poor, consistent with his diagnosis mentioned in my initial note. PLAN: Continue current psychotropics. Reviewed drug interactions. Risk/benefit ratio favors no further change. MAN Juanita MYLES MD DR: TONO/ugo JOB#: [id number] / [id number]
--- NOTE | 2017-01-01 19:57 | DS ---
DATE OF DISCHARGE: 12/31/2016 DISCHARGE SUMMARY/PSYCHIATRIC PROGRESS NOTE This is a late entry for date of service 12/31/2016, covers elements not covered in my initial note of 12/31/2016. REASON FOR ADMISSION: Please refer to the admission history for details. Briefly, the patient is a 76-year-old male referred to us from [facility] on account of increasing confusion, aggression, throwing chairs, resistive to cares, hitting staff, worsening decline over the last 2 months within the context of his dementia with delusion, depression, behavioral disturbance, and failure of outpatient psychiatric interventions. SIGNIFICANT FINDINGS AND CLINICAL COURSE: Following admission, the patient was seen daily individually by myself, followed medically per Dr. Stafford/Dr. Rios. He was extremely confused, just about oriented to himself, delusional, agitated, disruptive, aggressive. Adjustments were made in his psychotropics. He seemed to respond to a combination of Zoloft 75 mg a day, Depakote Sprinkles 500 mg b.i.d. and 250 mg at noon, Remeron 30 mg at bedtime, Seroquel 50 mg 3 times a day, Xanax 0.5 mg daily and 0.25 mg every 4 hours p.r.n., Zyprexa p.r.n., trazodone 12.5 mg at 0900 hours and 1300 hours, and 50 mg at bedtime p.r.n., may repeat x 1 for insomnia. Valproic acid level subtherapeutic at 38, but clinically adequate since his behaviors are much improved prior to discharge. CONDITION AT DISCHARGE: Improved. REVIEW OF SYSTEMS: Prior to discharge, ambulation impaired in a Broda chair. No CV, , eye, ENT or pulmonary system symptoms on review. Reliability poor. MENTAL STATUS EXAM: Oriented to himself. Insight, judgment, recent and remote memory, attention, concentration, fund of knowledge poor, consistent with his diagnosis mentioned in my initial note. FINAL DIAGNOSES: Major neurocognitive disorder, Alzheimer, vascular with depression, delusion, behavioral disturbance; anxiety disorder, unspecified; impulse control disorder, unspecified. Rest as above. DISCHARGE MEDICATIONS: Please refer to the MRAD. DISCHARGE INSTRUCTIONS: Outpatient psychiatric and medical followup at the intermediate. Time for discharge day management greater than 30 minutes. MAN Juanita MYLES MD DR: Kaveh JOB#: [id number] / [id number]
== END 2016-12-31 10:15 | disposition home or self-care (01) | DRG 884 ==
LOC: GEROPSY 19:34
PROVIDERS: ADMIT Psychiatry & Neurology Psychiatry; ATTEND Psychiatry & Neurology Psychiatry
DX: F01.51 Vascular dementia, unspecified severity, with behavioral disturbance (principal); E44.0 Moderate protein-calorie malnutrition; G30.9 Alzheimer's disease, unspecified; E83.42 Hypomagnesemia; F02.81 Dementia in other diseases classified elsewhere, unspecified severity, with behavioral disturbance; F63.9 Impulse disorder, unspecified; F32.9 Major depressive disorder, single episode, unspecified; F41.9 Anxiety disorder, unspecified; I10 Essential (primary) hypertension; G47.00 Insomnia, unspecified; K59.09 Other constipation; Z66 Do not resuscitate; Z79.899 Other long term (current) drug therapy; Z86.718 Personal history of other venous thrombosis and embolism; Z91.81 History of falling; Z68.25 Body mass index [BMI] 25.0-25.9, adult; Z79.01 Long term (current) use of anticoagulants
CPT/HCPCS: 36415; 80053; 80061; 80164; 81001; 82306; 82607; 83036; 83540; 83550; 83735; 84436; 84443; 84480; 85025; 86592; 86593; 93005; J1650; 97110; 97116; 97530